=== PATIENT | male | born 1950 | race Asian ===

== ENCOUNTER → 2017-04-12 | Outpatient (CLI) | payer MEDICARE ==
--- NOTE | 2017-04-12 07:37 | CT ---
EXAMINATION TYPE: CT sinus wo con DATE OF EXAM: 04/12/2017 COMPARISON: NONE HISTORY: Chronic sinusitis CT DLP: 624.20 mGycm. Automated Exposure Control for Dose Reduction was Utilized. TECHNIQUE: CT scan of the sinuses is performed without contrast, axial images are obtained, coronal r eformatted images are also reviewed. FINDINGS: Intracranial structures show mild atrophy. Soft tissue including the orbits appear normal. There is mucoperiosteal thickening involving the maxillary sinuses as well as the ethmoid sinuses. Th ere is some mild mucoperiosteal thickening involving the sphenoid sinuses. There is also mucoperioste al thickening involving the frontal sinuses, worse on the right than the left. Both infundibula are o bstructed by soft tissue. No air-fluid levels are seen. IMPRESSION: CHRONIC PANSINUSITIS. BOTH INFUNDIBULA ARE OCCLUDED BY SOFT TISSUE.
[2017-04-12 07:39] LABS: CHCM 31.8; HCT 42.7 % (39.0-53.0); HDW 2.77; HGB 13.5 gm/dL (13.0-17.5); Hypochromasia Slight; MCHC 31.7 g/dL (31.0-37.0); MCV 88.4 fL (80.0-100.0); Mean Platelet Volume 6.5; RBC 4.83 m/uL (4.30-5.90); RDW 14.7 % (11.5-15.5); WBC 8.5 k/uL (3.8-10.6)
[2017-04-12 07:53] LABS: ALT 18 U/L (21-72); AST 18 U/L (17-59); Alkaline Phosphatase 82 U/L (38-126); Anion Gap 13 mmol/L; Blood Urea Nitrogen 15 mg/dL (9-20); Calcium 9.4 mg/dL (8.4-10.2); Carbon Dioxide 26 mmol/L (22-30); Chloride 105 mmol/L (98-107); Cholesterol 171 mg/dL (<200); Glucose 116 mg/dL (74-99); HDL Cholesterol 57 mg/dL (40-60); Non-African American GFR(MDRD) >60 (>60 ml/min/1.73 sqM); Potassium 4.5 mmol/L (3.5-5.1); Sodium 144 mmol/L (137-145); Total Bilirubin 0.5 mg/dL (0.2-1.3); Total Protein 8.3 g/dL (6.3-8.2); Triglycerides 234 mg/dL (<150)
[2017-04-12 08:37] LABS: Hemoglobin A1C 6.6 % (4.2-6.1)
== END | disposition home or self-care (01) ==
LOC: RADCTMAIN 06:56
PROVIDERS: ATTEND Otolaryngology
DX: J32.4 Chronic pansinusitis (principal)
CPT/HCPCS: 36415; 70486; 80053; 80061; 83036; 85027

== ENCOUNTER → 2018-04-05 | Outpatient (CLI) | payer MEDICARE ==
[2018-04-05 07:59] LABS: Anisocytosis Slight; HCT 44.4 % (39.0-53.0); HGB 14.1 gm/dL (13.0-17.5); Hypochromasia Slight; MCH 28.2 pg (25.0-35.0); MCHC 31.7 g/dL (31.0-37.0); Mean Platelet Volume 6.4; Platelet Count 289 k/uL (150-450); RBC 4.98 m/uL (4.30-5.90); RDW 16.5 % (11.5-15.5); WBC 8.5 k/uL (3.8-10.6)
[2018-04-05 08:31] LABS: ALT 22 U/L (21-72); AST 18 U/L (17-59); Albumin 3.9 g/dL (3.5-5.0); Alkaline Phosphatase 84 U/L (38-126); Anion Gap 11 mmol/L; Blood Urea Nitrogen 15 mg/dL (9-20); Calcium 9.2 mg/dL (8.4-10.2); Carbon Dioxide 28 mmol/L (22-30); Chloride 103 mmol/L (98-107); Cholesterol 219 mg/dL (<200); Glucose 98 mg/dL (74-99); HDL Cholesterol 40 mg/dL (40-60); LDL Cholesterol,Calculated 136 mg/dL (0-99); Sodium 142 mmol/L (137-145); Total Bilirubin 0.4 mg/dL (0.2-1.3); Total Protein 7.4 g/dL (6.3-8.2); Triglycerides 214 mg/dL (<150)
[2018-04-05 12:17] LABS: Hemoglobin A1C 6.6 % (4.0-6.0)
== END | disposition home or self-care (01) ==
LOC: LABWHC1 07:16
PROVIDERS: ATTEND Internal Medicine
DX: E11.9 Type 2 diabetes mellitus without complications (principal); E78.5 Hyperlipidemia, unspecified
CPT/HCPCS: 36415; 80053; 80061; 83036; 85027

== ENCOUNTER → 2019-07-27 | Outpatient (CLI) | payer MEDICARE ==
[2019-07-27 08:51] LABS: Appearance,Urine Clear (Clear); Bilirubin,Urine Negative (Negative); Blood,Urine Negative (Negative); Color,Urine Yellow; Glucose,Urine (UA) Negative (Negative); HCT 45.9 % (39.0-53.0); HGB 14.5 gm/dL (13.0-17.5); Hypochromasia Slight; Ketones,Urine Negative (Negative); Leukocyte Esterase,Urine Negative (Negative); MCH 28.4 pg (25.0-35.0); MCHC 31.6 g/dL (31.0-37.0); Mean Platelet Volume 5.7; Nitrite,Urine Negative (Negative); Platelet Count 350 k/uL (150-450); Protein,Urine Trace (Negative); RDW 15.6 % (11.5-15.5); Specific Gravity,Urine 1.025 (1.001-1.035); WBC 8.7 k/uL (3.8-10.6)
[2019-07-27 16:43] LABS: African American GFR (CKD) 100.6 (60.0-200.0); Albumin 4.1 g/dL (3.80-4.90); Albumin/Globulin Ratio 1.28 (1.60-3.17); Anion Gap 6.3 mmol/L (4.00-12.00); BUN/Creat Ratio 13.33 Ratio (12.00-20.00); Carbon Dioxide 28.7 mmol/L (21.6-31.8); Chol/HDL Ratio 3.77; Globulin 3.2 g/dL (1.6-3.3); LDL Cholesterol,Calculated 115.2 mg/dL (0.0-131.0); Potassium 3.9 mmol/L (3.5-5.5); Total Bilirubin 0.4 mg/dL (0.3-1.2); Total Protein 7.3 g/dL (6.2-8.2); VLDL Calculation 28.8 mg/dL (5.00-40.00)
[2019-07-27 18:53] LABS: Hemoglobin A1C 6.7 % (4.0-6.0)
== END | disposition home or self-care (01) ==
LOC: LABWHC1 08:19
PROVIDERS: ATTEND Internal Medicine
DX: E11.9 Type 2 diabetes mellitus without complications (principal); E78.5 Hyperlipidemia, unspecified; I25.709 Atherosclerosis of coronary artery bypass graft(s), unspecified, with unspecified angina pectoris; R53.83 Other fatigue
CPT/HCPCS: 36415; 80053; 80061; 81003; 82043; 82570; 83036; 84443; 85027

== ENCOUNTER 2021-09-18 00:23 | Observation (INO) | payer MEDICARE ==
[2021-09-18] MEDS ORDERED: IPRATROPIUM-ALBUTEROL 3 ML NEB INHALATION STA ×2 (00:34→01:37)
[2021-09-18] MEDS ORDERED: LORazepam 1 MG TAB PO STA (00:34)
--- NOTE | 2021-09-18 00:35 | ED ---
SOB HPI - General Stated Complaint: GOLD Time Seen by Provider: 09/18/21 00:24 Source: RN notes reviewed, old records reviewed Limitations: no limitations - History of Present Illness Initial Comments: This is a 70-year-old male to the ER today. Patient is a for evaluation of shortness breath with cough and congestion. Symptoms began suddenly tonight he does admit to smoking cigarettes tonight. Patient states he became very anxious his oxygen began to drop in his very short of breath and then became diaphoretic. Ration no chest pain. She has a strong medical history does have significant COPD. MD Complaint: shortness of breath, cough -: hour(s) Radiation: back Severity: mild Severity scale (1-10): 3 Quality: aching Consistency: constant Improves With: nothing Worsens With: nothing Known History Of: COPD Context: recent URI Associated Symptoms: chest pain, cough, sputum production Treatments Prior to Arrival: none - Related Data Home Medications Medication Instructions Recorded Confirmed Aspirin 81 mg PO DAILY 07/09/15 07/09/15 atenoloL [Tenormin] 25 mg PO DAILY 07/09/15 07/09/15 traZODone HCL [Desyrel] 200 mg PO HS 07/09/15 07/09/15 Previous Rx's Medication Instructions Recorded HYDROcodone/APAP 5-325MG [[place] 5] 1 each PO Q6HR PRN #10 tab 07/09/15 Sulfamethox-Tmp 800-160Mg [Bactrim 1 each PO Q12HR #14 tab 07/09/15 Ds] Allergies Allergy/AdvReac Type Severity Reaction Status Date / Time No Known Allergies Allergy Verified 07/09/15 07:53 Review of Systems ROS Statement: Those systems with pertinent positive or pertinent negative responses have been documented in the HPI. ROS Other: All systems not noted in ROS Statement are negative. Past Medical History Additional Past Medical History / Comment(s): hypotension, trachea stenosis History of Any Multi-Drug Resistant Organisms: None Reported Past Surgical History: Coronary Bypass/CABG Additional Past Surgical History / Comment(s): CABG x 2, trachea sx Past Psychological History: No Psychological Hx Reported Past Alcohol Use History: None Reported Past Drug Use History: None Reported General Exam General appearance: alert, in no apparent distress Head exam: Present: atraumatic, normocephalic, normal inspection Eye exam: Present: normal appearance, PERRL, EOMI. Absent: scleral icterus, conjunctival injection, periorbital swelling ENT exam: Present: normal exam, mucous membranes moist Neck exam: Present: normal inspection. Absent: tenderness, meningismus, lymphadenopathy Respiratory exam: Present: normal lung sounds bilaterally. Absent: respiratory distress, wheezes, rales, rhonchi, stridor Cardiovascular Exam: Present: regular rate, normal rhythm, normal heart sounds. Absent: systolic murmur, diastolic murmur, rubs, gallop, clicks GI/Abdominal exam: Present: soft, normal bowel sounds. Absent: distended, tenderness, guarding, rebound, rigid Extremities exam: Present: normal inspection, full ROM, normal capillary refill. Absent: tenderness, pedal edema, joint swelling, calf tenderness Back exam: Present: normal inspection Neurological exam: Present: alert, oriented X3, CN II-XII intact Psychiatric exam: Present: normal affect, normal mood Skin exam: Present: warm, dry, intact, normal color. Absent: rash Course Vital Signs 09/18/21 09/18/21 09/18/21 00:27 00:59 01:16 Temperature 97.4 F L Pulse Rate 107 H 96 92 Respiratory 20 Rate Blood Pressure O2 Sat by Pulse 94 L Oximetry 09/18/21 09/18/21 02:12 02:15 Temperature Pulse Rate 105 H 110 H Respiratory 20 Rate Blood Pressure 150/80 O2 Sat by Pulse 93 L Oximetry - Reevaluation(s) Reevaluation #1: 09/18/21 01:38 Medical record is reviewed Reevaluation #2: 09/18/21 03:47 Patient still having anxiety and pain. Breathing is improving Reevaluation #3: 09/18/21 03:47 Patient is informed of results and questions answered - Consultations Consultation #1: Spoke with H will admit for this patient Medical Decision Making - Medical Decision Making 70 male DF for evaluation patient will be admitted for cardiology evaluation breathing treatments and cardiopulmonary support - Lab Data Result diagrams: 09/18/21 01:50 09/18/21 01:50 Lab Results 09/18/21 09/18/21 09/18/21 Range/Units 01:50 01:50 01:50 WBC 10.7 H (3.8-10.6) k/uL RBC 5.18 (4.30-5.90) m/uL Hgb 15.1 (13.0-17.5) gm/dL Hct 48.1 (39.0-53.0) % MCV 92.8 (80.0-100.0) fL MCH 29.1 (25.0-35.0) pg MCHC 31.4 (31.0-37.0) g/dL RDW 15.1 (11.5-15.5) % Plt Count 280 (150-450) k/uL MPV 7.2 Neutrophils % 72 % Lymphocytes % 19 % Monocytes % 5 % Eosinophils % 3 % Basophils % 1 % Neutrophils # 7.7 (1.3-7.7) k/uL Lymphocytes # 2.0 (1.0-4.8) k/uL Monocytes # 0.5 (0-1.0) k/uL Eosinophils # 0.3 (0-0.7) k/uL Basophils # 0.1 (0-0.2) k/uL Sodium 136 L (137-145) mmol/L Potassium 4.6 (3.5-5.1) mmol/L Chloride 105 (98-107) mmol/L Carbon Dioxide 22 (22-30) mmol/L Anion Gap 9 mmol/L BUN 20 (9-20) mg/dL Creatinine 0.94 (0.66-1.25) mg/dL Est GFR (CKD-EPI)AfAm >90 (>60 ml/min/1.73 sqM) Est GFR (CKD-EPI)NonAf 82 (>60 ml/min/1.73 sqM) Glucose 133 H (74-99) mg/dL Calcium 9.2 (8.4-10.2) mg/dL Magnesium 2.2 (1.6-2.3) mg/dL Total Bilirubin 0.4 (0.2-1.3) mg/dL AST 23 (17-59) U/L ALT 12 (4-49) U/L Alkaline Phosphatase 92 (38-126) U/L Troponin I 0.154 H* (0.000-0.034) ng/mL NT-Pro-B Natriuret Pep pg/mL Total Protein 8.0 (6.3-8.2) g/dL Albumin 4.1 (3.5-5.0) g/dL Coronavirus (PCR) (Not Detectd) 09/18/21 09/18/21 Range/Units 01:50 02:16 WBC (3.8-10.6) k/uL RBC (4.30-5.90) m/uL Hgb (13.0-17.5) gm/dL Hct (39.0-53.0) % MCV (80.0-100.0) fL MCH (25.0-35.0) pg MCHC (31.0-37.0) g/dL RDW (11.5-15.5) % Plt Count (150-450) k/uL MPV Neutrophils % % Lymphocytes % % Monocytes % % Eosinophils % % Basophils % % Neutrophils # (1.3-7.7) k/uL Lymphocytes # (1.0-4.8) k/uL Monocytes # (0-1.0) k/uL Eosinophils # (0-0.7) k/uL Basophils # (0-0.2) k/uL Sodium (137-145) mmol/L Potassium (3.5-5.1) mmol/L Chloride (98-107) mmol/L Carbon Dioxide (22-30) mmol/L Anion Gap mmol/L BUN (9-20) mg/dL Creatinine (0.66-1.25) mg/dL Est GFR (CKD-EPI)AfAm (>60 ml/min/1.73 sqM) Est GFR (CKD-EPI)NonAf (>60 ml/min/1.73 sqM) Glucose (74-99) mg/dL Calcium (8.4-10.2) mg/dL Magnesium (1.6-2.3) mg/dL Total Bilirubin (0.2-1.3) mg/dL AST (17-59) U/L ALT (4-49) U/L Alkaline Phosphatase (38-126) U/L Troponin I (0.000-0.034) ng/mL NT-Pro-B Natriuret Pep 786 pg/mL Total Protein (6.3-8.2) g/dL Albumin (3.5-5.0) g/dL Coronavirus (PCR) Not Detected (Not Detectd) - Radiology Data Radiology results: report reviewed (Chest x-rays negative for acute disease), image reviewed Critical Care Time Critical Care Time: Yes Total Critical Care Time: 31 Disposition Clinical Impression: Acute exacerbation of chronic obstructive pulmonary disease, Hypoxia Disposition: ADMITTED IP TO THIS HOSP Condition: Serious Is patient prescribed a controlled substance at d/c from ED?: No Referrals: Estephanie Sosa MD [Primary Care Provider] - 1-2 days
--- NOTE | 2021-09-18 01:14 | XR ---
EXAMINATION TYPE: XR chest 1V portable DATE OF EXAM: 09/18/2021 COMPARISON: 09/09/2015 HISTORY: Short of breath TECHNIQUE: Single view FINDINGS: There is some coarse interstitial infiltrate throughout both lungs. There is blunting of th e costophrenic angles and more on the right side. There is some pleural thickening on the right later al chest wall. There are sternal wires. Bony thorax appears intact. IMPRESSION: Pulmonary fibrosis. Pleural diaphragmatic scarring. There is mild progression of disease compared to old exam. Congestive heart failure not excluded.
[2021-09-18] MEDS ORDERED: SODIUM CHLORIDE 0.9% 1,000 ML IV STA (01:37)
[2021-09-18] MEDS ORDERED: SODIUM CHLORIDE 0.9% 500 ML 500 ML IV STA (01:37)
[2021-09-18] MEDS ORDERED: methylPREDNISolone SOD SUCCI 125 MG/2 ML VIAL IV STA (01:37)
[2021-09-18 02:26] LABS: Basophils # (A) 0.1 k/uL (0-0.2); Basophils % (A) 1 %; Eosinophils # (A) 0.3 k/uL (0-0.7); Eosinophils % (A) 3 %; HCT 48.1 % (39.0-53.0); HGB 15.1 gm/dL (13.0-17.5); Lymphocytes % (A) 19 %; MCH 29.1 pg (25.0-35.0); MCHC 31.4 g/dL (31.0-37.0); MCV 92.8 fL (80.0-100.0); Mean Platelet Volume 7.2; Monocytes # (A) 0.5 k/uL (0-1.0); Monocytes % (A) 5 %; Neutrophils # (A) 7.7 k/uL (1.3-7.7); Neutrophils % (A) 72 %; Platelet Count 280 k/uL (150-450); RBC 5.18 m/uL (4.30-5.90); RDW 15.1 % (11.5-15.5); WBC 10.7 k/uL (3.8-10.6)
[2021-09-18 02:40] LABS: ALT 12 U/L (4-49); AST 23 U/L (17-59); African American GFR (CKD) >90 (>60 ml/min/1.73 sqM); Albumin 4.1 g/dL (3.5-5.0); Alkaline Phosphatase 92 U/L (38-126); Anion Gap 9 mmol/L; Blood Urea Nitrogen 20 mg/dL (9-20); Calcium 9.2 mg/dL (8.4-10.2); Carbon Dioxide 22 mmol/L (22-30); Chloride 105 mmol/L (98-107); Glucose 133 mg/dL (74-99); Magnesium 2.2 mg/dL (1.6-2.3); Non-African American GFR(CKD) 82 (>60 ml/min/1.73 sqM); Potassium 4.6 mmol/L (3.5-5.1); Sodium 136 mmol/L (137-145); Total Bilirubin 0.4 mg/dL (0.2-1.3)
[2021-09-18] MEDS ORDERED: HYDROmorphone 1 MG/ML 1 ML SYRINGE IVP STA (02:59)
[2021-09-18] MEDS ORDERED: ONDANSETRON 4 MG/2 ML VIAL IVP PRN (03:48)
[2021-09-18] MEDS ORDERED: HEPARIN SODIUM 1,000 UN/ML (10ML VL) IV ONE ×2 (03:48→17:15)
[2021-09-18] MEDS ORDERED: NALOXONE 0.4 MG/ML 1 ML VIAL IV PRN (03:48)
[2021-09-18] MEDS ORDERED: LORazepam 2 MG/ML INJ IV PRN (03:48)
[2021-09-18] MEDS ORDERED: HEPARIN SOD,PORK IN 0.45% NACL 25,000 UNIT in 0.45% NACL 1 250ML.BAG IV SCH (04:00)
[2021-09-18] MEDS: HYDROcodone/APAP 10-325MG 1 EACH TAB PO PRN ×3 (05:11→18:44)
[2021-09-18] MEDS: HYDROmorphone 1 MG/ML 1 ML SYRINGE IVP PRN ×4 (06:36→21:03)
[2021-09-18] MEDS: methylPREDNISolone SOD SUCCI 125 MG/2 ML VIAL IV SCH ×3 (06:37→18:44)
[2021-09-18 06:39] LABS: Glucose,Whole Blood 166 mg/dL (75-99)
[2021-09-18] MEDS ORDERED: CLOTRIMAZOLE 1% CREAM 30 GM TUBE TOPICAL PRN (07:54)
[2021-09-18] MEDS ORDERED: HYDROcodone/APAP 5-325MG 1 EACH TAB PO STA (07:59)
[2021-09-18] MEDS ORDERED: FUROSEMIDE 10 MG/ML 2 ML VIAL IV ONE ×2 (08:20→18:13)
[2021-09-18] MEDS: ALBUTEROL NEBULIZED 2.5 MG/3 ML INHALATION SCH ×2 (08:53→13:01)
[2021-09-18] MEDS ORDERED: ASPIRIN 81 MG PO SCH (09:00)
[2021-09-18] MEDS ORDERED: ISOSORBIDE MONONITRATE ER 30 MG TAB.ER.24H PO SCH (09:00)
[2021-09-18] MEDS ORDERED: atenoloL 25 MG TAB PO SCH (09:00)
[2021-09-18] MEDS ORDERED: TAMSULOSIN 0.4 MG CAP.ER.24H PO SCH (09:00)
[2021-09-18] MEDS ORDERED: PANTOPRAZOLE 40 MG TABLET PO SCH (09:00)
--- NOTE | 2021-09-18 10:08 | CONS ---
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 This gentleman has a significant past medical history that includes myocardial infarction followed by aortocoronary bypass surgery in 1991 and redo bypass surgery in 2006. Following the redo bypass surgery, he developed vocal cord paralysis. Since then, he has had episodes of hospitalization with chest discomfort but has done generally well. He smokes on a regular basis and has underlying COPD and probably some pulmonary fibrosis and pulmonary hypertension as well. He usually uses oxygen at night. He has chronic pain issues and also takes pain medication. He was doing fairly well until yesterday when he began having some shortness of breath and noted that his oxygen saturation, which usually runs at 91, came down to 88. He felt a bit concerned and he took some inhalers, did not have much relief and following this, he felt a bit anxious and then had chest tightness and pressure and came into the emergency room. In the emergency room, he was found to have on the EKG, a sinus mechanism with LVH and evidence of possible old inferior PR. There are also ST-T abnormality, lateral leads, but this could be related to LVH also. Troponin was up as well and this could be related to a primary myocardial infarction or could also be related to hypoxia since his oxygen saturation was in the 80s when he came in. Now the oxygen saturation on 2 L is 94%. Heart rate is about 100. He is resting comfortably without symptoms. PAST MEDICAL HISTORY: 1. CAD with PR and bypass surgery in 1991. 2. Myocardial infarction and stenting of circumflex in 2004, probably date unclear. 3. Status post redo bypass surgery at [facility] in 2006. 4. COPD, smoking and pulmonary fibrosis. 5. History of pulmonary hypertension. 6. Known peripheral vascular disease with occlusion of left subclavian following his initial bypass surgery. MEDICATIONS: Medications at home include atenolol 25 mg daily, Flomax 0.4 mg daily, trazodone 300 mg daily, Imdur 30 mg daily. He also takes Batson 10/325 1 tablet 3-4 times a day, aspirin 81 mg daily. PHYSICAL EXAMINATION: On examination, blood pressure is 110/78, pulse rate is about 98. HEENT unremarkable. Fundus was not examined by me. NECK: Supple. There is JVD of 1 cm. No carotid bruit. HEART exam reveals S1, S2. There is a short systolic murmur at left sternal border. LUNGS: Fine scattered rales on both sides with expiratory rhonchi. ABDOMEN is soft, nontender. Lower EXTREMITIES reveal diminished pulses. CENTRAL NERVOUS SYSTEM grossly no focal deficits. IMPRESSION: 1. Acute exacerbation of chronic obstructive pulmonary disease with background history of pulmonary fibrosis in a chronic smoker. 2. Non-ST elevation myocardial infarction could be a type 2 myocardial infarction given his chronic hypoxemia that went on for the last day or so. 3. History of coronary artery disease with prior bypass surgery in 1991 and 2006 with known significant progression of disease. 4. Peripheral vascular disease. 5. History of pain syndrome. RECOMMENDATIONS: I am recommending that we will heparinize him. Additional troponins will be obtained. We will obtain echocardiogram, seek pulmonary evaluation. Resume most of his medications and based on clinical course, we will make further recommendations. Prognosis remains guarded. I will not proceed with cardiac cath at this time but we will see how he does clinically. I discussed this at length with the patient. His BNP was also within normal limits. Prognosis remains guarded. He has been counseled to quit smoking multiple times. MMODL / IJN: [id number] /
[2021-09-18] MEDS ORDERED: DOXYCYCLINE 100 MG in SODIUM CHLORIDE 0.9% 100 ML IVPB SCH (11:15)
[2021-09-18 11:16] LABS: Glucose,Whole Blood 190 mg/dL (75-99)
--- NOTE | 2021-09-18 12:13 | ECHOF ---
Referral Reason:CAD, CHF, NSTEMI LV FX ?? MEASUREMENTS -------- HEIGHT: 165.1 cm WEIGHT: 59.9 kg BP: 147/87 RVIDd: 3.0 cm (< 3.3) IVSd: 1.1 cm (0.6 - 1.1) LVIDd: 4.8 cm (3.9 - 5.3) LVPWd: 1.1 cm (0.6 - 1.1) IVSs: 1.2 cm LVIDs: 4.0 cm LVPWs: 1.6 cm LA Diam: 3.7 cm (2.7 - 3.8) LAESV Index (A-L): 24.16 ml/m Ao Diam: 3.2 cm (2.0 - 3.7) AV Cusp: 1.7 cm (1.5 - 2.6) MV EXCURSION: 22.126 mm (> 18.000) MV EF SLOPE: 132 mm/s (70 - 150) EPSS: 1.1 cm AR PHT: 700 ms RAP: 15.00 mmHg RVSP: 43.03 mmHg FINDINGS -------- Sinus rhythm. This was a technically adequate study. The left ventricular size is normal. There is borderline concentric left ventricular hypertrophy. Overall left ventricular systolic function is mild-moderately impaired with, an EF of 40 %. Basal i nferior LV wall motion is hypokinetic. Inferiorlateral Hypokinesis The right ventricle is normal in size. Paradoxical motion of the right ventricular septum is consis tent with post operative status. Normal LA size by volume 22+/-6 ml/m2. The right atrium is normal in size. Interatrial and interventricular septum intact. There is mild aortic valve sclerosis. There is mild aortic regurgitation. Mild mitral annular calcification present. Mild mitral regurgitation is present. Mild tricuspid regurgitation present. There is mild pulmonary hypertension. The right ventricular systolic pressure, as measured by Doppler, is 43.03mmHg. The pulmonic valve was not well visualized. The aortic root size is normal. Normal inferior vena cava with normal inspiratory collapse consistent with estimated right atrial pre ssure of 5 mmHg. There is no pericardial effusion. CONCLUSIONS -------- 1. The left ventricular size is normal. 2. There is borderline concentric left ventricular hypertrophy. 3. Overall left ventricular systolic function is mild-moderately impaired with, an EF of 40% 4. Basal inferior LV wall motion is hypokinetic. 5. Inferiorlateral Hypokinesis 6. Paradoxical motion of the right ventricular septum is consistent with post operative status. 7. There is mild aortic valve sclerosis. 8. There is mild aortic regurgitation. 9. Mild mitral annular calcification present. 10. Mild mitral regurgitation is present. 11. Mild tricuspid regurgitation present. 12. There is mild pulmonary hypertension. 13. The right ventricular systolic pressure, as measured by Doppler, is 43.03mmHg. 14. There is no pericardial effusion. CURRENCY EXCHANGE SPECIALIST: Louise Wooten RDCS
[2021-09-18] MEDS: METOPROLOL TARTRATE 50 MG TAB PO SCH ×3 (12:21→21:03)
[2021-09-18] MEDS ORDERED: IPRATROPIUM-ALBUTEROL 3 ML NEB INHALATION PRN (12:22)
[2021-09-18] MEDS: IPRATROPIUM-ALBUTEROL 3 ML NEB INHALATION SCH ×3 (12:26→19:50)
[2021-09-18] MEDS ORDERED: ALPRAZolam 0.5 MG TAB PO PRN (12:31)
[2021-09-18] MEDS ORDERED: ALPRAZolam 0.25 MG TAB PO PRN (12:31)
[2021-09-18] MEDS ORDERED: NITROGLYCERIN SL TABS 0.4 MG TAB SUBLINGUAL PRN (12:31)
[2021-09-18] MEDS ORDERED: ASPIRIN 325 MG TAB PO STA (12:31)
[2021-09-18] MEDS ORDERED: SODIUM CHLORIDE 0.9% 1,000 ML in EMPTY BAG 1 BAG IV SCH (12:45)
[2021-09-18] MEDS ORDERED: SODIUM CHLORIDE 0.9% 1,000 ML IV SCH ×2 (12:45→18:15)
[2021-09-18 13:49] VITALS: BMI 21.9
[2021-09-18] MEDS: DOXYCYCLINE 100 MG CAP PO SCH ×2 (14:11→21:03)
[2021-09-18] MEDS ORDERED: IV FLUID CONTINUATION 700 ML IV ONE (16:40)
[2021-09-18] MEDS ORDERED: LIDOCAINE 1% INJ 10MG/ML (20 ML MDV) ONE (16:43)
[2021-09-18] MEDS ORDERED: MIDAZOLAM 2 MG/2 ML VIAL IV ONE (16:45)
[2021-09-18] MEDS ORDERED: .fentaNYL (PF) 50 MCG/ML AMP IV ONE (16:49)
[2021-09-18] MEDS ORDERED: LIDOCAINE 1% INJ 10MG/ML (20 ML MDV) SQ ONE (16:50)
[2021-09-18] MEDS ORDERED: IOPAMIDOL-370 100ML BTL INJ ONE ×2 (17:06→17:44)
[2021-09-18] MEDS ORDERED: HEPARIN SODIUM 1,000 UN/ML (10ML VL) ONE (17:11)
[2021-09-18] MEDS ORDERED: HYDROmorphone 0.5 MG/0.5 ML SYRINGE IVP ONE ×2 (17:26→17:52)
[2021-09-18] MEDS ORDERED: NITROGLYCERIN 1000MCG/10ML SYRINGE INTRACORON ONE (17:36)
[2021-09-18] MEDS ORDERED: RX INFO: IV CONTRAST WAS GIVEN 1 EACH MISC MISCELLANE PRN (18:17)
[2021-09-18 18:58] VITALS: TEMP 98
--- NOTE | 2021-09-18 19:28 | CC ---
CARDIAC CATHETERIZATION REPORT DATE OF SERVICE: 09/18/2021 PROCEDURE: 1. Left heart catheterization, coronary angiography and selective injection of bypass grafts and selective injection of left subclavian. 2. Percutaneous transluminal coronary angioplasty of left main coronary artery into the circumflex. This procedure was unsuccessful; could not wire successfully. Moderate conscious sedation time was 66 minutes. Patient was administered Versed, fentanyl and also Dilaudid for pain. Oxygen saturation, hemodynamics and EKG were monitored closely. CLINICAL INFORMATION: Ilia Burton is a 70-year-old gentleman with a history of CAD, previous bypass surgery x2 in 1991 and 2006, and multivessel stenting involving stenting of vein graft to the circumflex, vein graft to the diagonal, and also left subclavian stenting. He has been doing fairly well. Unfortunately he continues to smoke. He also has significant COPD, some pulmonary fibrosis and moderate pulmonary hypertension. He came into the hospital with increasing shortness of breath and had troponin elevation suggestive of [id number] IN. After due discussion regarding risks, benefits and options, I recommended coronary angiography to assess the coronary picture and then consider intervention. Rationale, risks, benefits and options were explained to the patient and also his . They understood all details and wished to proceed with the procedure. In 2006 he underwent repeat bypass surgery. The initial one was in 1991, and both the vein grafts to the diagonal, circumflex were occluded, and because of a left subclavian stenosis, the SELBY was nonfunctional and he had subclavian stenting placed also. In 2006 he went to [facility] for a redo operation. At that time they placed a single vein graft from the aorta to the PLV branch of circumflex and a second was a free right internal mammary artery graft which was placed to the grier of the old vein graft, and the distal end was to the LAD. These were the only two grafts. Postoperatively, he had a lot of issues and developed vocal cord palsy and has some hoarseness of voice and difficulty in speech. He was brought in for the procedure after due discussion regarding risks, benefits and options. PROCEDURE NOTE: Under local anesthesia and strict aseptic precautions, a 6-Kinyarwanda introducer was placed in the right femoral artery. Using a JL4 catheter, I performed selective coronary angiography of the left system. I used an AR1 catheter. With this I performed selective coronary angiography of the vein graft/right internal mammary free graft to the LAD, which opacifies the entire LAD and diagonal. I used the same catheter to perform selective angiography of the left subclavian. I used a standard right Milton catheter to selectively perform coronary angiography of the [place] RCA. I then did an aortogram with a pigtail catheter in the ANTON projection to look for any additional grafts. The vein graft to the PLV branch was not visualized and presumably occluded. Following this, I attempted PTCA of the left main which was supplying the circumflex, but I could not cross the lesion in the left main into the circumflex. I kept going into the LAD and one occasion I went into the circumflex with extreme tortuosity, but because of a lot of assistance, the wire came back. After some attempts, I explained to the patient that I would send him to [facility] for a [facility] intervention team and abandoned the procedure and took the sheath out and placed Angio-Seal. Patient received 3500 units of heparin. ACT was about 240. CARDIAC CATHETERIZATION FINDINGS: LEFT MAIN CORONARY ARTERY: There is severe stenosis of the left main distally of about 95% and then it gives off LAD, ramus and circumflex. Left main distally has a 90% chronic stenosis, heavily calcified area, chronic occlusion. LEFT ANTERIOR DESCENDING CORONARY ARTERY: No antegrade flow. There is some competitive flow noted. RAMUS INTERMEDIUS: Small vessel. No significant disease. Minor irregularities. LEFT POSTERIOR CIRCUMFLEX CORONARY ARTERY: Nondominant vessel has a mid lesion of about 70% and it also has an obtuse marginal where the graft was attached, and that appears to have about 30% to 40% narrowing. RIGHT CORONARY ARTERY: This is a nondominant vessel, has a proximal 50% lesion, small caliber, small distribution, limited myocardium being supplied by it. FREE RIGHT INTERNAL MAMMARY ARTERY GRAFT FROM THE GRIER OF THE VEIN GRAFT TO THE LAD: This was opacified very well. It is a good-sized, healthy-looking graft that attaches to the LAD and opacifies the entire LAD both proximal and distal and also the diagonal branch and entire septal system. This is an excellent graft that is literally opacifying the entire LAD system, including the diagonal branch. No other vein graft visualized. One vein graft stump was noted. Presumably this is the stump that supplies the posterolateral branch of circumflex which is now occluded. LEFT SUBCLAVIAN SELECTIVE INJECTION: This subclavian injection was performed with Amplatz right catheter. The vessel is widely patent. No significant stenosis. Opacifies the entire subclavian artery. AORTOGRAM: This was performed in a 30-degree ANTON projection and revealed a normal-sized aorta and there is evidence of the free ANISH graft opacifying the LAD system, but no other grafts are visualized. Aortic root is enlarged. There is minimal aortic insufficiency noted. FINAL IMPRESSION: This patient has distal left main 95% stenosis, competitive flow in LAD noted. Ramus has mild diffuse disease. Circumflex has a mid lesion of 70%. RCA is nondominant, has a 50% proximal lesion. The free right internal mammary artery graft from the grier of the old vein graft to the LAD is widely patent, opacifies the entire LAD and the diagonal. The vein graft to the PLV branch of circumflex is not visualized, presumably occluded, seen as a stump. RECOMMENDATIONS: I recommended intervention of the left main that supplies the circumflex and explained to him that it would be a difficult procedure because the lesion appears to be a chronic one, and there is tortuosity of the circumflex and it would be difficult to wire. Dr. Burton was explained the findings and then I proceeded to perform PCI. PCI PROCEDURE DETAILS: A JL3.5 guide catheter was used and I used a combination of a Whisper straight wire and a 45-degree Super Cross. With this combination I was able to once cross into the circumflex, but the wire just came back because of high resistance and tortuosity. The wire kept going into the LAD itself, not the circumflex. After some attempts, I abandoned, explained to the patient that I will send him to a [facility] center where they will have a better success rate. Patient was stable, asymptomatic. Another troponin level was also ordered and he was sent to the room in a stable condition. Findings were discussed with the patient, and I will talk to his also. MMODL / IJN: [id number] /
[2021-09-18 19:31] VITALS: BP 128/74; PULSE 97
[2021-09-18 19:41] VITALS: RESP 17
[2021-09-18] MEDS ORDERED: BUDESONIDE 1 MG/2 ML NEBU INHALATION SCH (20:00)
[2021-09-18] MEDS ORDERED: FORMOTEROL FUMARATE 20 MCG/2 ML NEBU INHALATION SCH (20:00)
[2021-09-18 20:41] LABS: Glucose,Whole Blood 255 mg/dL (75-99)
[2021-09-18] MEDS ORDERED: traZODone HCL 100 MG TAB PO SCH (21:00)
[2021-09-18] MEDS ORDERED: ENOXAPARIN 60 MG/0.6 ML SYRINGE SQ SCH (21:00)
[2021-09-19] MEDS ORDERED: HEPARIN SODIUM,PORCINE 10,000 UNIT in SODIUM CHLORIDE 0.9% 1,000 ML IRRIGATION PRN (07:00)
[2021-09-19] MEDS ORDERED: HEPARIN SODIUM,PORCINE 2,500 UNIT in SODIUM CHLORIDE 0.9% 250 ML IRRIGATION PRN (07:00)
--- NOTE | 2021-09-19 08:49 | P.HPIM ---
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, with history of coronary artery disease/TN with CABG in 1991 and redo bypass surgery in 2006 at [facility]; following redo bypass surgery patient developed vocal cord paralysis; patient has long-standing history of tobacco use with underlying COPD/probable pulmonary fibrosis; presents to ED with complaint of shortness of breath; patient reports that he noted his O2 saturation was in 80s; patient reports using some inhalers at home which did help somewhat with breathing but he later developed chest tightness and pressure and decided to come to ED Workup in ED with EKG done reveals NSR with LVH and old inferior TN Blood work reveals WBC 10.7, hemoglobin 15.1, platelets of 280, sodium 136, potassium 4.6, BUN/creatinine of 20/0.94; troponin was found to be at 2.270 with follow-up troponin of 3.270 Patient received IV Solu-Medrol and started on IV heparin and is admitted for further treatment and cardiac evaluation Review of Systems REVIEW OF SYSTEMS: CONSTITUTIONAL: No fever, no malaise, no fatigue. HEENT: No recent visual problems or hearing problems. Denied any sore throat. CARDIOVASCULAR: chest pain PULMONARY: shortness of breath GASTROINTESTINAL: No diarrhea, no nausea, no vomiting, no abdominal pain. NEUROLOGICAL: No headaches, no weakness, no numbness. HEMATOLOGICAL: Denies any bleeding or petechiae. GENITOURINARY: Denies any burning micturition, frequency, or urgency. MUSCULOSKELETAL/RHEUMATOLOGICAL: Denies any joint pain, swelling, or any muscle pain. ENDOCRINE: Denies any polyuria or polydipsia. The rest of the 14-point review of systems is negative. Past Medical History Past Medical History: Coronary Artery Disease (CAD), Chest Pain / Angina, COPD, Myocardial Infarction ([place]) Additional Past Medical History / Comment(s): hypotension, trachea stenosis Last Myocardial Infarction Date:: 2005 History of Any Multi-Drug Resistant Organisms: None Reported Past Surgical History: Coronary Bypass/CABG, Heart Catheterization With Stent Additional Past Surgical History / Comment(s): CABG x 2, trachea sx 4 cardiac stent, penile implant Date of Last Stent Placement:: 2005 Past Psychological History: No Psychological Hx Reported Smoking Status: Current every day smoker Past Alcohol Use History: None Reported Past Drug Use History: None Reported - Past Family History Father Family Medical History: Coronary Artery Disease (CAD) Brother(s) Family Medical History: Coronary Artery Disease (CAD) Medications and Allergies Home Medications Medication Instructions Recorded Confirmed Type Aspirin 81 mg PO DAILY 07/09/15 09/18/21 History atenoloL [Tenormin] 25 mg PO DAILY 07/09/15 09/18/21 History HYDROcodone/APAP 10-325MG [[place] 1 tab PO QID 09/18/21 09/18/21 History 10-325] Isosorbide Mononitrate ER [Imdur] 30 mg PO DAILY 09/18/21 09/18/21 History Ketoconazole 2% Cream [Nizoral 2%] 1 applic TOPICAL BID PRN 09/18/21 09/18/21 History Pantoprazole Sodium [Protonix] 20 mg PO DAILY 09/18/21 09/18/21 History Tamsulosin [Flomax] 0.4 mg PO DAILY 09/18/21 09/18/21 History traZODone HCL 300 mg PO HS 09/18/21 09/18/21 History Allergies Allergy/AdvReac Type Severity Reaction Status Date / Time No Known Allergies Allergy Verified 09/18/21 07:32 Physical Exam Vitals: Vital Signs Temp Pulse Pulse Resp BP BP Pulse Ox 09/18/21 08:00 98.3 F 105 H 24 147/87 95 09/18/21 06:24 97.6 F 105 H 25 H 140/85 95 09/18/21 05:00 115 H 20 146/80 94 L 09/18/21 02:30 107 H 09/18/21 02:15 110 H 09/18/21 02:12 105 H 20 150/80 93 L 09/18/21 01:16 92 09/18/21 00:59 96 09/18/21 00:27 97.4 F L 107 H 20 94 L Intake and Output 09/17/21 09/18/21 09/18/21 22:59 06:59 14:59 Intake Total 240 Output Total 150 Balance -150 240 Intake: Oral 240 Output: Urine 150 Other: Weight 59.874 kg PHYSICAL EXAMINATION: GENERAL: The patient is alert and oriented x3, in mild respiratory distress. Well developed, well nourished. HEENT: Pupils are round and equally reacting to light. EOMI. No scleral icterus. No conjunctival pallor. Normocephalic, atraumatic. No pharyngeal erythema. No thyromegaly. CARDIOVASCULAR: S1 and S2 present. No murmurs, rubs, or gallops. PULMONARY: Diffuse bilateral wheezing with markedly decreased breath sounds. ABDOMEN: Soft, nontender, nondistended, normoactive bowel sounds. No palpable organomegaly. MUSCULOSKELETAL: No joint swelling or deformity. EXTREMITIES: No cyanosis, clubbing, or pedal edema. NEUROLOGICAL: Gross neurological examination did not reveal any focal deficits. SKIN: No rashes. Results CBC & Chem 7: 09/18/21 01:50 09/18/21 01:50 Labs: Abnormal Lab Results - Last 24 Hours (Table) 09/18/21 09/18/21 09/18/21 Range/Units 01:50 01:50 01:50 WBC 10.7 H (3.8-10.6) k/uL Sodium 136 L (137-145) mmol/L Glucose 133 H (74-99) mg/dL POC Glucose (mg/dL) (75-99) mg/dL Troponin I 0.154 H* (0.000-0.034) ng/mL 09/18/21 09/18/21 Range/Units 06:27 07:10 WBC (3.8-10.6) k/uL Sodium (137-145) mmol/L Glucose (74-99) mg/dL POC Glucose (mg/dL) 166 H (75-99) mg/dL Troponin I 1.600 H* (0.000-0.034) ng/mL Thrombosis Risk Factor Assmnt - Choose All That Apply Any of the Below Risk Factors Present?: Yes Each Factor Represents 1 point: Abnormal pulmonary function (COPD) Each Risk Factor Represents 2 Points: Age 61-74 years Thrombosis Risk Factor Assessment Total Risk Factor Score: 3 Thrombosis Risk Factor Assessment Level: Moderate Risk Assessment and Plan Assessment: 1. Non-ST elevation TN - Patient is placed on aspirin and IV heparin infusion; we will monitor EKG and trend troponin every 4 hours 3 - 2-D echo; consult cardiology for further recommendations 2. Acute exacerbation COPD/ pulmonary fibrosis -Patient received Solu-Medrol 125 mg IV in ED; questioning COPD exacerbation versus worsening pulmonary fibrosis - Pulmonary consult in place and recommendations are pending - I will add IV doxycycline for medical prophylaxis 3. Acute exacerbation CHF; mild; chest x-ray reveals mild CHF; BNP is 786 which is within normal range; patient does have mild respiratory distress; he received 1 dose of Lasix 20 mg IV in ED; we will monitor closely and obtain 2-D echo for further recommendations on diuretic therapy 4. Leukocytosis possibly reactive; monitor CBC closely; we will plan sepsis workup if WBC remains elevated 5. Hyperglycemia; no history of diabetes mellitus; possibly secondary to steroid use - We will monitor Accu-Cheks closely with further recommendations according DVT prophylaxis; SCDs/ IV heparin CODE STATUS; full code
[2021-09-19] MEDS ORDERED: ATORVASTATIN 40 MG TAB PO SCH (09:00)
== END 2021-09-18 22:10 | disposition critical access hospital (66) ==
LOC: EC 00:23 → 3SCARD 03:48
PROVIDERS: ADMIT Hospitalist; ATTEND Hospitalist
DX: I21.4 Non-ST elevation (NSTEMI) myocardial infarction (principal); J44.1 Chronic obstructive pulmonary disease with (acute) exacerbation; J84.10 Pulmonary fibrosis, unspecified; I11.0 Hypertensive heart disease with heart failure; I50.9 Heart failure, unspecified; I25.10 Atherosclerotic heart disease of native coronary artery without angina pectoris; R73.9 Hyperglycemia, unspecified; I08.3 Combined rheumatic disorders of mitral, aortic and tricuspid valves; I27.20 Pulmonary hypertension, unspecified; I73.9 Peripheral vascular disease, unspecified; J39.8 Other specified diseases of upper respiratory tract; F17.210 Nicotine dependence, cigarettes, uncomplicated; F41.9 Anxiety disorder, unspecified; J38.00 Paralysis of vocal cords and larynx, unspecified; G89.4 Chronic pain syndrome; D72.829 Elevated white blood cell count, unspecified; I25.2 Old myocardial infarction; Z71.6 Tobacco abuse counseling; Z20.822 Contact with and (suspected) exposure to COVID-19; Z79.82 Long term (current) use of aspirin; Z79.899 Other long term (current) drug therapy; Z95.1 Presence of aortocoronary bypass graft; Z96.0 Presence of urogenital implants; Z87.09 Personal history of other diseases of the respiratory system; Z95.5 Presence of coronary angioplasty implant and graft; Z82.49 Family history of ischemic heart disease and other diseases of the circulatory system
CPT/HCPCS: 96376; 96375 ×2; 96374; 99291; 36415; 94640 ×2; 94760; 93005; 93306; 93459; 93567; 92920; 83880; 80053; 83735; 84484; 85025; 85730; 87635; 71045; G0378; C1769 ×5; C1760; C1887 ×2; C1894; J2250; J1940; J2930; J2001; J1650; J3010; J1644 ×2; J1170 ×2; Q9967

== ENCOUNTER 2021-12-06 15:50 | Inpatient (IN) | payer MEDICARE ==
[2021-12-06] MEDS ORDERED: ASPIRIN 81 MG PO STA (16:27)
[2021-12-06] MEDS ORDERED: MORPHINE SULFATE 4 MG/ML SYRINGE IV STA (16:27)
[2021-12-06] MEDS ORDERED: NITROGLYCERIN SL TABS 0.4 MG TAB SUBLINGUAL STA (16:27)
[2021-12-06 16:49] LABS: Basophils # (A) 0.1 k/uL (0-0.2); Basophils % (A) 1 %; Eosinophils # (A) 0.9 k/uL (0-0.7); Eosinophils % (A) 8 %; HCT 42.9 % (39.0-53.0); HGB 13.9 gm/dL (13.0-17.5); Hypochromasia Slight; Lymphocytes # (A) 2.5 k/uL (1.0-4.8); Lymphocytes % (A) 22 %; MCH 30.3 pg (25.0-35.0); MCHC 32.4 g/dL (31.0-37.0); MCV 93.7 fL (80.0-100.0); Mean Platelet Volume 7.4; Monocytes # (A) 0.4 k/uL (0-1.0); Monocytes % (A) 4 %; Neutrophils # (A) 7.5 k/uL (1.3-7.7); Neutrophils % (A) 64 %; Platelet Count 308 k/uL (150-450); RBC 4.58 m/uL (4.30-5.90); RDW 15.3 % (11.5-15.5); WBC 11.6 k/uL (3.8-10.6)
[2021-12-06 16:51] LABS: INR 0.9 (<1.2); Partial Thromboplastin Time 22.8 sec (22.0-30.0); Prothrombin Time 10.1 sec (9.0-12.0)
[2021-12-06 16:52] LABS: Albumin 4.4 g/dL (3.5-5.0)
[2021-12-06 16:53] LABS: Calcium 9.3 mg/dL (8.4-10.2); Magnesium 2.2 mg/dL (1.6-2.3); Potassium 4.8 mmol/L (3.5-5.1); Total Bilirubin 0.5 mg/dL (0.2-1.3); Total Protein 8.3 g/dL (6.3-8.2)
--- NOTE | 2021-12-06 17:35 | ED ---
General Adult HPI - General Chief complaint: Chest Pain Stated complaint: chest pain Source: patient, EMS Mode of arrival: EMS Limitations: no limitations - History of Present Illness Initial comments: 71-year-old male with past medical history of CABG 2, multiple stent placement, tobacco abuse who presents to the emergency department with reported chest pain. Started 2 hours prior to hospital arrival. He does have history of significant cardiac disease. Patient has had 2 CABGs in the past. He was seen in August for similar complaints. Cath was performed at our facility and demonstrated significant chronic occlusion of his LAD. He was transferred down to [facility] where he had 2 stents placed. He reported that he had an additional circumflex lesion that was supposed to have a stent however he left the hospital prior to this being completed as he was concerned about his being diagnosed with cancer. He admits to chest pressure with shortness of breath. Admits to some nausea and diaphoresis. No ripping or tearing sensation to his back. No numbness, tingling or weakness in his arms. He did take a baby aspirin however refused the remaining aspirin it was recommended by EMS. He received any pain medications prior to hospital arrival. No fevers chills or cough. No alleviating, precipitating or modifying factors - Related Data Home Medications Medication Instructions Recorded Confirmed Aspirin 81 mg PO DAILY 07/09/15 12/06/21 atenoloL [Tenormin] 25 mg PO DAILY 07/09/15 12/06/21 HYDROcodone/APAP 10-325MG [[place] 1 tab PO QID PRN 09/18/21 12/06/21 10-325] Isosorbide Mononitrate ER [Imdur] 30 mg PO DAILY 09/18/21 12/06/21 Pantoprazole Sodium [Protonix] 20 mg PO DAILY 09/18/21 12/06/21 Tamsulosin [Flomax] 0.4 mg PO DAILY 09/18/21 12/06/21 Albuterol Inhaler [Ventolin Hfa 2 puff INHALATION RT-QID PRN 12/06/21 12/06/21 Inhaler] Clopidogrel [Plavix] 75 mg PO DAILY 12/06/21 12/06/21 lisinopriL [Zestril] 20 mg PO DAILY 12/06/21 12/06/21 Allergies Allergy/AdvReac Type Severity Reaction Status Date / Time No Known Allergies Allergy Verified 12/06/21 17:57 Review of Systems ROS Statement: Those systems with pertinent positive or pertinent negative responses have been documented in the HPI. ROS Other: All systems not noted in ROS Statement are negative. Past Medical History Past Medical History: Coronary Artery Disease (CAD), Chest Pain / Angina, COPD, Myocardial Infarction ([place]) Additional Past Medical History / Comment(s): hypotension, trachea stenosis Last Myocardial Infarction Date:: 2005 History of Any Multi-Drug Resistant Organisms: None Reported Past Surgical History: Coronary Bypass/CABG, Heart Catheterization With Stent Additional Past Surgical History / Comment(s): CABG x 2, trachea sx 4 cardiac stent, penile implant Date of Last Stent Placement:: 2005 Past Psychological History: No Psychological Hx Reported Smoking Status: Former smoker Past Alcohol Use History: None Reported Past Drug Use History: None Reported - Past Family History Father Family Medical History: Coronary Artery Disease (CAD) Brother(s) Family Medical History: Coronary Artery Disease (CAD) General Exam Limitations: no limitations General appearance: alert, in no apparent distress Head exam: Present: atraumatic, normocephalic, normal inspection Eye exam: Present: normal appearance, PERRL, EOMI. Absent: scleral icterus, conjunctival injection, periorbital swelling ENT exam: Present: normal exam, mucous membranes moist Neck exam: Present: normal inspection. Absent: tenderness, meningismus, lymphadenopathy Respiratory exam: Present: normal lung sounds bilaterally. Absent: respiratory distress, wheezes, rales, rhonchi, stridor Cardiovascular Exam: Present: regular rate, normal rhythm, normal heart sounds. Absent: systolic murmur, diastolic murmur, rubs, gallop, clicks GI/Abdominal exam: Present: soft, normal bowel sounds. Absent: distended, tenderness, guarding, rebound, rigid Extremities exam: Present: normal inspection, full ROM, normal capillary refill. Absent: tenderness, pedal edema, joint swelling, calf tenderness Back exam: Present: normal inspection Neurological exam: Present: alert, oriented X3, CN II-XII intact Psychiatric exam: Present: normal affect, normal mood Skin exam: Present: warm, dry, intact, normal color. Absent: rash Course Vital Signs 12/06/21 12/06/21 16:00 17:00 Temperature 98.0 F Pulse Rate 86 80 Respiratory 22 18 Rate Blood Pressure 144/59 104/54 O2 Sat by Pulse 92 L 98 Oximetry EKG Findings - EKG Comments: EKG Findings:: First EKG completed at 1611 and demonstrates a sinus rhythm with a ventricular rate of 84. SC interval to 10. QRS 105. QTC of 4:30. Significant baseline artifact. ST depression [address] segment criteria . Q waves present in the inferior leads. Second EKG completed at [address] depression in [address] segment criteria present. Some PVCs. Ventricular rate of 82.SC interval 216. QRS 101. QTC of 435. Q waves present in the inferior leads Medical Decision Making - Medical Decision Making Upon arrival patient is placed into room 24. A thorough history and physical exam was performed. Serial EKGs were completed. IV was established and laboratory studies were conducted. He was given 4 mg of morphine for pain control as well as 3 baby aspirins. Laboratory studies were conducted in the patient for chest x-ray. Review of the patient's labs demonstrated a negative first troponin. Creatinine is up to 1.7, previous of 0.9. BNP 3150. Chest x- ray demonstrates pleural and pulmonary scarring of the right lateral lung base. Improvement in pulmonary interstitial edema. I did discuss the results with Dr. Hester. Recommended initiating the patient's home medications, starting him on a heparin drip and giving him 75 mL of normal saline per hour. I also spoke with Dr. vazquez in regards to the patient. He agreed to the hospital admission is currently waiting on the floor - Lab Data Result diagrams: 12/06/21 16:04 12/06/21 16:04 Lab Results 12/06/21 12/06/21 12/06/21 Range/Units 16:04 16:04 16:04 WBC 11.6 H (3.8-10.6) k/uL RBC 4.58 (4.30-5.90) m/uL Hgb 13.9 (13.0-17.5) gm/dL Hct 42.9 (39.0-53.0) % MCV 93.7 (80.0-100.0) fL MCH 30.3 (25.0-35.0) pg MCHC 32.4 (31.0-37.0) g/dL RDW 15.3 (11.5-15.5) % Plt Count 308 (150-450) k/uL MPV 7.4 Neutrophils % 64 % Lymphocytes % 22 % Monocytes % 4 % Eosinophils % 8 % Basophils % 1 % Neutrophils # 7.5 (1.3-7.7) k/uL Lymphocytes # 2.5 (1.0-4.8) k/uL Monocytes # 0.4 (0-1.0) k/uL Eosinophils # 0.9 H (0-0.7) k/uL Basophils # 0.1 (0-0.2) k/uL Hypochromasia Slight PT (9.0-12.0) sec INR (<1.2) APTT (22.0-30.0) sec Sodium 139 (137-145) mmol/L Potassium 4.8 (3.5-5.1) mmol/L Chloride 104 (98-107) mmol/L Carbon Dioxide 21 L (22-30) mmol/L Anion Gap 14 mmol/L BUN 35 H (9-20) mg/dL Creatinine 1.71 H (0.66-1.25) mg/dL Est GFR (CKD-EPI)AfAm 45 (>60 ml/min/1.73 sqM) Est GFR (CKD-EPI)NonAf 39 (>60 ml/min/1.73 sqM) Glucose 161 H (74-99) mg/dL Calcium 9.3 (8.4-10.2) mg/dL Magnesium 2.2 (1.6-2.3) mg/dL Total Bilirubin 0.5 (0.2-1.3) mg/dL AST 41 (17-59) U/L ALT 17 (4-49) U/L Alkaline Phosphatase 102 (38-126) U/L Troponin I <0.012 (0.000-0.034) ng/mL NT-Pro-B Natriuret Pep pg/mL Total Protein 8.3 H (6.3-8.2) g/dL Albumin 4.4 (3.5-5.0) g/dL Lipase 227 (23-300) U/L 12/06/21 12/06/21 Range/Units 16:04 16:35 WBC (3.8-10.6) k/uL RBC (4.30-5.90) m/uL Hgb (13.0-17.5) gm/dL Hct (39.0-53.0) % MCV (80.0-100.0) fL MCH (25.0-35.0) pg MCHC (31.0-37.0) g/dL RDW (11.5-15.5) % Plt Count (150-450) k/uL MPV Neutrophils % % Lymphocytes % % Monocytes % % Eosinophils % % Basophils % % Neutrophils # (1.3-7.7) k/uL Lymphocytes # (1.0-4.8) k/uL Monocytes # (0-1.0) k/uL Eosinophils # (0-0.7) k/uL Basophils # (0-0.2) k/uL Hypochromasia PT 10.1 (9.0-12.0) sec INR 0.9 (<1.2) APTT 22.8 (22.0-30.0) sec Sodium (137-145) mmol/L Potassium (3.5-5.1) mmol/L Chloride (98-107) mmol/L Carbon Dioxide (22-30) mmol/L Anion Gap mmol/L BUN (9-20) mg/dL Creatinine (0.66-1.25) mg/dL Est GFR (CKD-EPI)AfAm (>60 ml/min/1.73 sqM) Est GFR (CKD-EPI)NonAf (>60 ml/min/1.73 sqM) Glucose (74-99) mg/dL Calcium (8.4-10.2) mg/dL Magnesium (1.6-2.3) mg/dL Total Bilirubin (0.2-1.3) mg/dL AST (17-59) U/L ALT (4-49) U/L Alkaline Phosphatase (38-126) U/L Troponin I (0.000-0.034) ng/mL NT-Pro-B Natriuret Pep 3150 pg/mL Total Protein (6.3-8.2) g/dL Albumin (3.5-5.0) g/dL Lipase (23-300) U/L Disposition Clinical Impression: Chest pain, ASCVD (arteriosclerotic cardiovascular disease) Disposition: ADMITTED IP TO [facility] Condition: Stable Is patient prescribed a controlled substance at d/c from ED?: No Referrals: Jelly Onofre MD [Primary Care Provider] - 1-2 days Decision to Admit Reason: Admit from EC Decision Date: 12/06/21 Decision Time: 18:06
[2021-12-06] MEDS ORDERED: ALBUTEROL NEBULIZED 2.5 MG/3 ML INHALATION PRN (18:01)
[2021-12-06] MEDS ORDERED: HEPARIN SODIUM 1,000 UN/ML (10ML VL) IV ONE (18:01)
[2021-12-06] MEDS ORDERED: HEPARIN SODIUM 1,000 UN/ML (10ML VL) IV PRN (18:01)
--- NOTE | 2021-12-06 18:05 | XR ---
EXAMINATION TYPE: XR chest 2V DATE OF EXAM: 12/06/2021 COMPARISON: 09/18/2021 HISTORY: Chest pain TECHNIQUE: FINDINGS: There is pleural thickening and blunting of the right costophrenic angle. There are sternal wires. There is no heart failure. Heart size is fairly normal. There are no hilar masses. There is c oarse interstitial density in the lungs. IMPRESSION: Pleural and pulmonary scarring right lateral lung base unchanged. There is improvement in the pulmonary interstitial edema compared to old exam.
[2021-12-06] MEDS ORDERED: MORPHINE SULFATE 4 MG/ML SYRINGE IV PRN (18:07)
[2021-12-06] MEDS ORDERED: NALOXONE 0.4 MG/ML 1 ML VIAL IV PRN (18:07)
[2021-12-06] MEDS ORDERED: HEPARIN SOD,PORK IN 0.45% NACL 25,000 UNIT in 0.45% NACL 1 250ML.BAG IV SCH (18:15)
[2021-12-06] MEDS: SODIUM CHLORIDE 0.9% 1,000 ML IV SCH (19:21)
[2021-12-06] MEDS: HYDROcodone/APAP 10-325MG 1 EACH TAB PO PRN (20:03)
[2021-12-06] MEDS: ISOSORBIDE MONONITRATE ER 30 MG TAB.ER.24H PO SCH (22:49)
[2021-12-06] MEDS: MORPHINE SULFATE 2 MG/ML SYRINGE IVP PRN (22:50)
[2021-12-06] MEDS ORDERED: HYDROmorphone 1 MG/ML 1 ML SYRINGE IVP STA (23:12)
[2021-12-07] MEDS: HYDROcodone/APAP 10-325MG 1 EACH TAB PO PRN ×5 (02:50→22:48)
[2021-12-07 05:17] VITALS: RESP 18
[2021-12-07] MEDS: MORPHINE SULFATE 2 MG/ML SYRINGE IVP PRN ×4 (06:18→20:24)
[2021-12-07 06:30] LABS: Basophils # (A) 0.1 k/uL (0-0.2); Basophils % (A) 1 %; Eosinophils # (A) 1.2 k/uL (0-0.7); Eosinophils % (A) 9 %; HCT 33.4 % (39.0-53.0); Hypochromasia Moderate; Lymphocytes # (A) 4.6 k/uL (1.0-4.8); Lymphocytes % (A) 36 %; MCH 30.8 pg (25.0-35.0); MCHC 31.9 g/dL (31.0-37.0); MCV 96.8 fL (80.0-100.0); Mean Platelet Volume 7.6; Monocytes # (A) 0.7 k/uL (0-1.0); Monocytes % (A) 6 %; Neutrophils % (A) 47 %; Platelet Count 277 k/uL (150-450); RBC 3.45 m/uL (4.30-5.90); RDW 14.9 % (11.5-15.5); WBC 12.8 k/uL (3.8-10.6)
[2021-12-07 06:37] LABS: Partial Thromboplastin Time 75.9 sec (22.0-30.0); Prothrombin Time 10.7 sec (9.0-12.0)
[2021-12-07 06:38] LABS: Calcium 8.9 mg/dL (8.4-10.2); Potassium 4.4 mmol/L (3.5-5.1)
[2021-12-07 06:42] LABS: HGB 10.6 gm/dL (13.0-17.5)
[2021-12-07] MEDS ORDERED: SODIUM CHLORIDE 0.9% 1,000 ML IV SCH (07:30)
[2021-12-07] MEDS ORDERED: lisinopriL 20 MG TAB PO SCH ×2 (09:00→21:00)
[2021-12-07] MEDS ORDERED: ISOSORBIDE MONONITRATE ER 30 MG TAB.ER.24H PO SCH (09:00)
[2021-12-07] MEDS ORDERED: atenoloL 25 MG TAB PO SCH (09:00)
--- NOTE | 2021-12-07 09:28 | US ---
EXAMINATION TYPE: US kidneys/renal and bladder DATE OF EXAM: 12/07/2021 COMPARISON: CT 2013 CLINICAL HISTORY: ERIKA. Exam done portable EXAM MEASUREMENTS: Right Kidney: 10.4 x 4.2 x 4.6 cm Left Kidney: 9.4 x 4.5 x 4.2 cm Right Kidney: multiple small cortical cysts with largest measuring 1.4cm Left Kidney: wnl Bladder: distended, 4.8 x 4.0 x 7.4cm anechoic area seen superior to bladder, ? implant reservoir (kyle bolanosnt states he has a penile implant Bilateral Jets seen: no No hydronephrosis or nephrolithiasis. IMPRESSION: There is a 4.8 x 7.4 cm anechoic area seen superior to bladder which is indeterminate and could be re lated to implant reservoir or cystic mass. Other etiologies are not excluded. CT scan recommended of the pelvis. Hypoechoic lesions involving the kidneys too small to characterize but statistically most likely rela darron to cysts.
--- NOTE | 2021-12-07 09:38 | P.NPCON ---
History of Present Illness - Reason for Consult acute renal failure - History of Present Illness Reason for consultation: Acute kidney injury History of present illness: Patient is a 71-year-old male seen in renal consultation for acute kidney injury. Patient's creatinine in August 2021 was near 1. This admission was elevated at 1.71 and is fairly stable at 1.64. Patient denies any hematuria or dysuria. No vomiting or diarrhea. Patient presented to the hospital with chest pain. Patient states he had 3 cardiac stents placed at [facility] in October 2021. He also states that he needs more stenting which will be done at a later date. He is currently receiving IV fluids. He denies use of nonsteroidals. No history of diabetes. No shortness of breath. Currently on 3 L nasal cannula. Blood pressure stable. Blood pressure was 88/50 earlier this morning. Lisinopril has been discontinued. Patient states he does not follow with nephrology outpatient. Vital signs are stable. General: The patient appeared well nourished and normally developed. HEENT: Head exam is unremarkable. LUNGS: Breath sounds decreased. HEART: Rate and Rhythm are regular. ABDOMEN: Soft, no distention. EXTREMITITES: No edema. Past Medical History Past Medical History: Coronary Artery Disease (CAD), Chest Pain / Angina, COPD, Myocardial Infarction ([place]) Additional Past Medical History / Comment(s): hypotension, trachea stenosis Last Myocardial Infarction Date:: 2005 History of Any Multi-Drug Resistant Organisms: None Reported Past Surgical History: Coronary Bypass/CABG, Heart Catheterization With Stent Additional Past Surgical History / Comment(s): CABG x 2, trachea sx 4 cardiac stent, penile implant Past Anesthesia/Blood Transfusion Reactions: No Reported Reaction Date of Last Stent Placement:: 2005 Smoking Status: Former smoker - Past Family History Father Family Medical History: Coronary Artery Disease (CAD) Brother(s) Family Medical History: Coronary Artery Disease (CAD) Medications and Allergies Home Medications Medication Instructions Recorded Confirmed Type Aspirin 81 mg PO DAILY 07/09/15 12/06/21 History atenoloL [Tenormin] 25 mg PO DAILY 07/09/15 12/06/21 History HYDROcodone/APAP 10-325MG [[place] 1 tab PO QID PRN 09/18/21 12/06/21 History 10-325] Isosorbide Mononitrate ER [Imdur] 30 mg PO DAILY 09/18/21 12/06/21 History Pantoprazole Sodium [Protonix] 20 mg PO DAILY 09/18/21 12/06/21 History Tamsulosin [Flomax] 0.4 mg PO DAILY 09/18/21 12/06/21 History Albuterol Inhaler [Ventolin Hfa 2 puff INHALATION RT-QID PRN 12/06/21 12/06/21 History Inhaler] Clopidogrel [Plavix] 75 mg PO DAILY 12/06/21 12/06/21 History lisinopriL [Zestril] 20 mg PO DAILY 12/06/21 12/06/21 History Allergies Allergy/AdvReac Type Severity Reaction Status Date / Time No Known Allergies Allergy Verified 12/06/21 17:57 Physical Exam Vitals: Vital Signs Temp Pulse Pulse Resp BP BP Pulse Ox 12/07/21 06:15 61 126/61 12/07/21 04:00 97 F L 67 18 88/50 100 12/07/21 02:00 67 22 12/07/21 00:00 97.7 F 67 22 106/53 99 12/06/21 20:00 61 22 101/52 100 12/06/21 19:05 66 19 12/06/21 19:00 66 19 105/60 93 L 12/06/21 18:30 78 18 99/58 98 12/06/21 17:00 80 18 104/54 98 12/06/21 16:00 98.0 F 86 22 144/59 92 L Intake and Output 12/06/21 12/07/21 12/07/21 22:59 06:59 14:59 Intake Total 281.519 240 Output Total 250 Balance 31.519 240 Intake: Intake, IV Titration 81.519 Amount Heparin Sod,Pork in 0.45% 81.519 NaCl 25,000 unit In 0.45 % NaCl 1 250ml.bag @ 12 UNITS/KG/HR 6.532 mls/hr IV .Q24H [facility] Rx#: [id number] Oral 200 240 Output: Urine 250 Other: Voiding Method Urinal Urinal # Voids 0 Weight 54.431 kg Results - Lab Results Most recent lab results Calcium 8.9 mg/dL (8.4-10.2) 12/07/21 06:15 Magnesium 2.2 mg/dL (1.6-2.3) 12/06/21 16:04 12/07/21 06:15 12/07/21 06:15 Assessment and Plan Plan: Assessment: 1. Acute kidney injury secondary to ATN versus chronic kidney disease. Creatinine in August 2021 was near 1. This admission was 1.71 and is stable at 1.64 today. No hydronephrosis noted on kidney ultrasound. 2. Chest pain. Cardiology following. 3. Coronary artery disease status post cardiac stenting October 2021. 4. Metabolic acidosis secondary to acute kidney injury and IV fluids. 5. Bladder mass. Patient states he's aware and was scheduled to have CT of the abdomen and pelvis done outpatient. Plan: Maintain IV fluids with normal saline at 80 mL an hour. Check urinalysis. Follow-up CT of the pelvis. Consider urology consult for the bladder mass. Avoid nephrotoxins. Continue to monitor renal function and urine output. Thank you for the consultation. I will continue to follow the patient with you during his hospital stay.
[2021-12-07] MEDS: TAMSULOSIN 0.4 MG CAP.ER.24H PO SCH (10:11)
[2021-12-07] MEDS: ASPIRIN 81 MG PO SCH (10:11)
[2021-12-07] MEDS: ISOSORBIDE MONONITRATE ER 30 MG TAB.ER.24H PO SCH ×2 (10:11→20:24)
[2021-12-07] MEDS: PANTOPRAZOLE 40 MG TABLET PO SCH (10:11)
[2021-12-07] MEDS: ATORVASTATIN 40 MG TAB PO SCH (10:12)
[2021-12-07] MEDS: CLOPIDOGREL 75 MG TAB PO SCH (10:12)
[2021-12-07] MEDS: HEPARIN SODIUM,PORCINE/PF 5,000 UNIT/0.5 ML SYRINGE SQ SCH ×2 (10:22→22:54)
[2021-12-07] MEDS: SODIUM CHLORIDE 0.9% 1,000 ML IV SCH ×2 (10:23→20:20)
--- NOTE | 2021-12-07 10:55 | CONS ---
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 He also has had previous stenting done, including stenting of left subclavian. He was recently hospitalized in August with a [id number]-coiivaoss SC. 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 He underwent stenting of this vessel after transfer to [facility]. He has had an excellent result. Distal circumflex is totally occluded, and this is initial SC in 1991 without much myocardium in that distribution. He was advised medical therapy. He came into the hospital complaining of some discomfort in the chest and shortness of breath. He took a baby aspirin and came in. After arrival he was found to have an EKG that revealed old inferior SC without acute changes. He has been hospitalized with intravenous heparin. Three sets of troponins are unremarkable. He has pain, but it is very atypical. I have reviewed his angiograms from [facility]. He had actually a very good result, and the ostium of the circumflex and ostium of the LAD also both were opened up. His graft to the LAD, which was a free right internal mammary artery graft, was actually doing very well, opacifying the entire left system. This morning he is comfortable, pain-free. He indicates to me that he has quit smoking, but he still has bilateral scattered rhonchi. He is resting at the time of my evaluation. PAST MEDICAL HISTORY: 1. CAD with the initial bypass surgery in 1991 with a SELBY to LAD and two vein grafts to the diagonal and circumflex. Over the years, circumflex and diagonal grafts were occluded and stented. He also had stenting of left subclavian which had developed stenosis to improve perfusion in the SELBY. Subsequently in 2006 he went on to have a redo bypass surgery at [facility]. This was a very important operation in the sense he had a free right internal mammary graft that was attached to the grier of the vein graft proximally and then distally it opacified the LAD. This graft was widely patent with good flow in the entire LAD system and also the diagonal and septal systems. No other vein grafts were visualized on recent cardiac cath. 2. He has history of smoking and COPD, which he claims he has quit. 3. History of pulmonary fibrosis. 4. History of benign prostatic hypertrophy. 5. His ejection fraction is in the range of 40% to 45% with inferolateral hypokinesia. MEDICATIONS: Medications at home include aspirin, Plavix, Flomax, Imdur. He also takes [place], atenolol 25 mg daily. He also takes a Ventolin inhaler. ALLERGIES: NONE. PHYSICAL EXAMINATION: On examination, blood pressure is 126/60, pulse rate is 64 per minute, regular. HEENT unremarkable. Fundus was not examined by me. Neck is supple. There is no JVD. I do not hear any carotid bruit. Heart exam reveals S1, S2 heard normally. There is a short systolic murmur at left sternal border. Lungs reveal fine scattered rales, both bases, with scattered expiratory rhonchi. Abdomen is soft, nontender. Lower extremities reveal diminished pulses. Central nervous system: No focal deficits. IMPRESSION: 1. Chest pain syndrome; does not suggest angina. 2. Mild exacerbation of chronic obstructive pulmonary disease in a patient with past history of smoking. 3. History of coronary artery disease with multiple bypass surgery and recent stenting of distal left main/ostial circumflex in August 2021. 4. Peripheral vascular disease. 5. History of chronic pain syndrome. RECOMMENDATIONS: I am recommending that we can discontinue IV heparin, increase activity. His creatinine went up to 1.7. With hydration, it has come down. I will hydrate him for the next few hours, repeat a creatinine, increase activity, perform echocardiogram, and if he has no further symptoms he can be discharged this afternoon. I will add atorvastatin 40 mg daily to his regimen and also he will see Dr. Sosa upon discharge in about a week or so. Discussed my thoughts in detail with the patient. Thank you very much for the consult. EKG revealed old inferior SC, no acute changes. MMODL / IJN: [id number] /
--- NOTE | 2021-12-07 11:56 | CT ---
EXAMINATION TYPE: CT pelvis wo con DATE OF EXAM: 12/07/2021 COMPARISON: Ultrasound dated 12/07/[address] dated 08/28/2013 HISTORY: Bladder mass CT DLP: 249.6 mGycm Automated exposure control for dose reduction was used. TECHNIQUE: Multiplanar nonenhanced CT scan of the pelvis without oral or IV contrast administration. FINDINGS: The ultrasound described anechoic area seen along the right superior aspect of the urinary bladder is consistent with a reservoir for the known penile implant. This reservoir is inseparable from the uri nary bladder wall. No definite urinary bladder lesion or other abnormality with the limitation of thi s nonenhanced CT scan. 4.9 cm fluid is seen along the right lateral aspect of the penile prosthesis i n the right side of the scrotum, not completely included in the scan. No prostatic enlargement with tiny prostatic concretion. Unremarkable seminal vesicles. Grossly unrem arkable visualized small and large bowel. No sizable pelvic collection. No suspicious pelvic lymphade nopathy. Scattered arterial atherosclerotic calcifications. Infrarenal abdominal aortic ectasia measu ring up to 2.3 cm. Questionable tiny 2 mm calculus at the lower pole of the left kidney, not complete ly included in the scan. No aggressive bone lesion. IMPRESSION: [place] of penile implant adjacent to the urinary bladder as described above. No definite urinary b ladder abnormality identified otherwise by this nonenhanced CT scan. Incidental findings as described above.
--- NOTE | 2021-12-07 12:44 | ECHOF ---
Referral Reason: MEASUREMENTS -------- HEIGHT: 165.1 cm WEIGHT: 54.4 kg BP: IVSd: 0.9 cm (0.6 - 1.1) LVIDd: 3.5 cm (3.9 - 5.3) LVPWd: 0.9 cm (0.6 - 1.1) IVSs: 1.1 cm LVIDs: 2.8 cm LVPWs: 0.6 cm LAESV Index (A-L): 23.46 ml/m Ao Diam: 3.3 cm (2.0 - 3.7) AV Cusp: 1.8 cm (1.5 - 2.6) LA Diam: 3.6 cm (2.7 - 3.8) MV EXCURSION: 20.130 mm (> 18.000) MV EF SLOPE: 73 mm/s (70 - 150) EPSS: 2.3 cm MV E Jewel: 0.95 m/s MV DecT: 174 ms MV A Jewel: 0.60 m/s MV E/A Ratio: 1.58 AR PHT: 830 ms RAP: 15.00 mmHg RVSP: 20.90 mmHg FINDINGS -------- Sinus rhythm. This was a technically adequate study. The left ventricular size is normal. Left ventricular wall thickness is normal. Overall left vent ricular systolic function is mildly impaired with, an EF between 45 - 50 %. Normal LAP Grade 1 [place] tolic Dysfunction. Basal inferior LV wall motion is hypokinetic. Basal inferoseptal LV wall dre on is hypokinetic. Mid inferior LV wall motion is hypokinetic. The right ventricle is normal in size. Normal LA size by volume 22+/-6 ml/m2. The right atrial size is normal. The aortic valve was not well visualized. There is moderate aortic regurgitation. Mild mitral annular calcification present. Mild mitral regurgitation is present. The tricuspid valve appears structurally normal. Mild tricuspid regurgitation present. Right vent ricular systolic pressure is normal at < 35 mmHg. There is no pulmonic regurgitation present. The aortic root size is normal. The inferior vena cava is mildly dilated. There is no pericardial effusion. CONCLUSIONS -------- 1. Left ventricular wall thickness is normal. 2. Overall left ventricular systolic function is mildly impaired with, an EF between 45 - 50 %. 3. Normal LAP Grade 1 Diastolic Dysfunction. 4. Basal inferior LV wall motion is hypokinetic. 5. Basal inferoseptal LV wall motion is hypokinetic. 6. Mid inferior LV wall motion is hypokinetic. 7. Normal LA size by volume 22+/-6 ml/m2. 8. There is moderate aortic regurgitation. 9. Mild mitral regurgitation is present. 10. Mild tricuspid regurgitation present. 11. The inferior vena cava is mildly dilated. 12. There is no pericardial effusion. NARROW [employer]AB[employer] CALENDERER: Gladys Wilkerson RDCS
--- NOTE | 2021-12-07 13:16 | XR ---
EXAMINATION TYPE: XR chest 1V portable DATE OF EXAM: 12/07/2021 COMPARISON: 12/06/2021 HISTORY: Shortness of breath TECHNIQUE: Single frontal view of the chest is obtained. FINDINGS: Postoperative change. Heart size normal. Hyperinflation. Bilateral consolidation and pleur al effusion with pleural-based thickening along the right lateral rib cage. A loculated pleural effus ion in the differential diagnosis. IMPRESSION: 1. COPD with bilateral infiltrate and pleural effusion. A loculated fluid collection or pleural-based mass along the periphery of the right lung in differential diagnosis.
--- NOTE | 2021-12-07 20:31 | P.HPIM ---
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 Patient rather significant cardiac history. Patient had a previous coronary bypass and 1991 and 2006. Ulcers had previous stenting done. Patient was attempted for hospital 2 weeks ago. Underwent coronary stenting there. It appears patient has a chronically occluded circumflex. Patient had been smoking up until a few weeks ago. Not very active. Patient yesterday developed chest pressure going across the chest. Shortness of breath. Some perspiration. Chest tightness. Not relieved with nitro. Patient presented to the ER. Admitted with unstable angina. Troponin was negative. Placed on IV heparin. Patient does follow with director digital Dr. SADIE Hester. Patient hasn't been very active. Patient also has been losing weight. Patient also in significant stress as his is undergoing treatment for stomach cancer. And his eldest son also recently had a stroke. Patient still having pain when I saw him on the floor. IV heparin. Added Imdur 30 mg a evening. Review of systems: GEN.: Tired, decreased appetite and weight loss EYES: None HEENT: None NECK: None RESPIRATORY: As above CARDIOVASCULAR: As above GASTROINTESTINAL: None GENITOURINARY: None MUSCULOSKELETAL: None LYMPHATICS: None HEMATOLOGICAL: None PSYCHIATRY: Anxiety NEUROLOGICAL: None Past medical history to include: CAD, COPD, trachea stenosis, Social history: 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 Family history: CAD Physical examination: VITAL SIGNS: 98, 86, 22, 144/59, 92% on room air GENERAL: BMI 20, sitting on bed, anxious, short of breath. EYES: Pupils equal. Conjunctiva normal. HEENT: External appearance of nose and ears normal, oral cavity grossly normal. NECK: JVD not raised; masses not palpable. HEART: First and second heart sounds are normal; no edema. LUNGS: Respiratory rate increased; decreased breath sounds. ABDOMEN: Soft, nontender, liver spleen not palpable, no masses palpable. PSYCH: Alert and oriented x3; mood and affect anxiousl. MUSCULOSKELETAL:No Clubbing/cyanosis;muscles-grossly intact. Muscle muscle mass and subcutaneous fat NEUROLOGICAL: Cranial nerves grossly intact; no facial asymmetry, power and sensation grossly intact. LYMPHATICS: No lymph nodes palpable in the axilla and neck INVESTIGATIONS, reviewed in the clinical context: White count 11.6 hemoglobin 13.9 platelets 308 potassium 4.8 BUN 35 creatinine 1.71 Troponin I less than 0.012 proBNP 3150 Coronavirus [PCR]: Not detected EKG tracing personally reviewed by me-normal sinus rhythm. Subtle ST segment changes. Chest x-ray film personally reviewed by me-possibly chronic changes Previous labs: Creatinine 0.9 for August 2021 Assessment and plan: -Unstable angina in a patient with known extensive cardiac disease. Troponin negative. Patient having active chest pain. Add Imdur 30 mg in the evening. IV heparin. Follow with Dr. SADIE Hester from cardiology. -CAD with a prior history of bypass in 1991 and 2006. Also stenting. Chronically occluded circumflex. Recent intervention successful at [address] [place] [address]. Aspirin, Tenormin, Lipitor, Plavix -BPH Flomax 0.4 mg daily -GERD Protonix 20 mg daily -COPD in a long-standing smoker discontinued recently Ventolin HFA when necessary -Chronic muscular skeletal pain [place] 10 one tablet 4 times a day when necessary -Acute on chronic medical debility Fall precautions -Mild protein calorie malnutrition from decreased oral intake Ensure -IV heparin monitoring Follow PTT -Acute kidney Injury. Note patient recently had intervention at an different hospital. This could be related to the cardiac catheterization. IV fluids. Follow labs. Care was discussed at length with the patient of the bedside. He is on IV heparin. Imdur 30 mg the evening is being added. Continue home medications. Gentle hydration. Past Medical History Past Medical History: Coronary Artery Disease (CAD), Chest Pain / Angina, COPD, Myocardial Infarction (NE) Additional Past Medical History / Comment(s): hypotension, trachea stenosis Last Myocardial Infarction Date:: 2005 History of Any Multi-Drug Resistant Organisms: None Reported Past Surgical History: Coronary Bypass/CABG, Heart Catheterization With Stent Additional Past Surgical History / Comment(s): CABG x 2, trachea sx 4 cardiac stent, penile implant Past Anesthesia/Blood Transfusion Reactions: No Reported Reaction Date of Last Stent Placement:: 2005 Smoking Status: Former smoker - Past Family History Father Family Medical History: Coronary Artery Disease (CAD) Brother(s) Family Medical History: Coronary Artery Disease (CAD) Medications and Allergies Home Medications Medication Instructions Recorded Confirmed Type Aspirin 81 mg PO DAILY 07/09/15 12/06/21 History atenoloL [Tenormin] 25 mg PO DAILY 07/09/15 12/06/21 History HYDROcodone/APAP 10-325MG [[place] 1 tab PO QID PRN 09/18/21 12/06/21 History 10-325] Isosorbide Mononitrate ER [Imdur] 30 mg PO DAILY 09/18/21 12/06/21 History Pantoprazole Sodium [Protonix] 20 mg PO DAILY 09/18/21 12/06/21 History Tamsulosin [Flomax] 0.4 mg PO DAILY 09/18/21 12/06/21 History Albuterol Inhaler [Ventolin Hfa 2 puff INHALATION RT-QID PRN 12/06/21 12/06/21 History Inhaler] Clopidogrel [Plavix] 75 mg PO DAILY 12/06/21 12/06/21 History lisinopriL [Zestril] 20 mg PO DAILY 12/06/21 12/06/21 History Allergies Allergy/AdvReac Type Severity Reaction Status Date / Time No Known Allergies Allergy Verified 12/06/21 17:57 Physical Exam Vitals: Vital Signs Temp Pulse Pulse Resp BP BP Pulse Ox 12/06/21 20:00 66 22 101/52 100 12/06/21 19:05 66 19 12/06/21 19:00 66 19 105/60 93 L 12/06/21 18:30 78 18 99/58 98 12/06/21 17:00 80 18 104/54 98 12/06/21 16:00 98.0 F 86 22 144/59 92 L Intake and Output 12/06/21 12/06/21 12/07/21 14:59 22:59 06:59 Other: # Voids 0 Weight 54.431 kg Results CBC & Chem 7: 12/07/21 06:15 12/07/21 14:20 Labs: Abnormal Lab Results - Last 24 Hours (Table) 12/06/21 12/06/21 Range/Units 16:04 16:04 WBC 11.6 H (3.8-10.6) k/uL Eosinophils # 0.9 H (0-0.7) k/uL Carbon Dioxide 21 L (22-30) mmol/L BUN 35 H (9-20) mg/dL Creatinine 1.71 H (0.66-1.25) mg/dL Glucose 161 H (74-99) mg/dL Total Protein 8.3 H (6.3-8.2) g/dL Thrombosis Risk Factor Assmnt - Choose All That Apply Each Risk Factor Represents 2 Points: Age 61-74 years Thrombosis Risk Factor Assessment Total Risk Factor Score: 2 Thrombosis Risk Factor Assessment Level: Low Risk
--- NOTE | 2021-12-07 20:40 | P.PN ---
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 Patient had a previous coronary bypass and 1991 and 2006. Ulcers had previous stenting done. Patient was attempted for hospital 2 weeks ago. Underwent coronary stenting there. It appears patient has a chronically occluded circumflex. Patient had been smoking up until a few weeks ago. Not very active. Patient yesterday developed chest pressure going across the chest. Shortness of breath. Some perspiration. Chest tightness. Not relieved with nitro. Patient presented to the ER. Admitted with unstable angina. Troponin was negative. Placed on IV heparin. Patient does follow with city mail carrier Dr. SADIE Hester. Patient hasn't been very active. Patient also has been losing weight. Patient also in significant stress as his is undergoing treatment for stomach cancer. And his eldest son also recently had a stroke. Patient still having pain when I saw him on the floor. IV heparin. Added Imdur 30 mg a evening. Admitted with unstable angina, acute kidney injury,. IV fluids. Nitrates added. IV heparin drip. December 07: Chest pain is better. Some shortness of breath. IV fluids. Blood pressure is running low. Nephrology consulted. Care was discussed with the patient and his son kareem at bedside. Patient wants to be a DO NOT RESUSCITATE. IV heparin was discontinued this morning. Add bronchodilators inhaled steroids. Active Medications Hydrocodone Bitart/Acetaminophen (Hydrocodone/Apap 10-325mg 1 Each Tab) 1 each PO QID PRN PRN Reason: Pain Last Admin: 12/07/21 17:57 Dose: 1 each Documented by: Albuterol Sulfate (Albuterol Nebulized 2.5 Mg/3 Ml) 2.5 mg INHALATION RT-QID PRN PRN Reason: Shortness Of Breath Albuterol/Ipratropium (Ipratropium-Albuterol 3 Ml Neb) 3 ml INHALATION RT-QID [facility] Aspirin (Aspirin 81 Mg) 81 mg PO DAILY [facility] Last Admin: 12/07/21 10:11 Dose: 81 mg Documented by: Atenolol (Atenolol 25 Mg Tab) 25 mg PO DAILY [facility] Last Admin: 12/07/21 10:11 Dose: 25 mg Documented by: Atorvastatin Calcium (Atorvastatin 40 Mg Tab) 40 mg PO DAILY [facility] Last Admin: 12/07/21 10:12 Dose: Not Given Documented by: Budesonide (Budesonide 1 Mg/2 Ml Nebu) 1 mg INHALATION RT-BID [facility] Clopidogrel Bisulfate (Clopidogrel 75 Mg Tab) 75 mg PO DAILY [facility] Last Admin: 12/07/21 10:12 Dose: 75 mg Documented by: Heparin Sodium (Porcine) (Heparin Sodium,Porcine/Pf 5,000 Unit/0.5 Ml Syringe) 5,000 unit SQ Q12HR [facility] Last Admin: 12/07/21 10:22 Dose: Not Given Documented by: Sodium Chloride (Saline 0.9%) 1,000 mls @ 80 mls/hr IV .[id number] [facility] Last Admin: 12/07/21 20:20 Dose: 80 mls/hr Documented by: Isosorbide Mononitrate (Isosorbide Mononitrate Er 30 Mg Tab.Er.24h) 30 mg PO BID [facility] Last Admin: 12/07/21 20:24 Dose: 30 mg Documented by: Melatonin (Melatonin 5 Mg Tablet) 10 mg PO HS PRN PRN Reason: imsomnia Morphine Sulfate (Morphine Sulfate 2 Mg/Ml Syringe) 2 mg IVP Q3HR PRN PRN Reason: Pain/Discomfort Last Admin: 12/07/21 20:24 Dose: 2 mg Documented by: Naloxone HCl (Naloxone 0.4 Mg/Ml 1 Ml Vial) 0.2 mg IV Q2M PRN PRN Reason: Opioid Reversal Pantoprazole Sodium (Pantoprazole 40 Mg Tablet) 40 mg PO DAILY [facility] Last Admin: 12/07/21 10:11 Dose: 40 mg Documented by: Tamsulosin HCl (Tamsulosin 0.4 Mg Cap.Er.24h) 0.4 mg PO DAILY [facility] Last Admin: 12/07/21 10:11 Dose: 0.4 mg Documented by: Past medical history to include: CAD, COPD, trachea stenosis, Social history: 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 Family history: CAD Physical examination: VITAL SIGNS: 97.9, 70, 19, 94/47, 99% on 3 L GENERAL: Reclining in bed, breathing better.. EYES: Pupils equal. Conjunctiva normal. HEENT: External appearance of nose and ears normal, oral cavity grossly normal. NECK: JVD not raised; masses not palpable. HEART: First and second heart sounds are normal; no edema. LUNGS: Respiratory rate increased; decreased breath sounds. Some wheezing ABDOMEN: Soft, nontender, liver spleen not palpable, no masses palpable. PSYCH: Alert and oriented x3; mood and affect anxious. MUSCULOSKELETAL:No Clubbing/cyanosis;muscles-grossly intact. Decreased Muscle muscle mass and subcutaneous fat INVESTIGATIONS, reviewed in the clinical context: December 07: White count 12.8 hemoglobin 10.6 platelets 277 potassium 4.4 BUN 33 creatinine 1.64 bicarb 20 Computed tomography scan abdomen: Findings delineated to penile implant. 2-D echo: EF 45-50%. Wall motion abnormalities. Moderate aortic regurgitation. White count 11.6 hemoglobin 13.9 platelets 308 potassium 4.8 BUN 35 creatinine 1.71 Troponin I less than 0.012 proBNP 3150 Coronavirus [PCR]: Not detected EKG tracing personally reviewed by me-normal sinus rhythm. Subtle ST segment changes. Chest x-ray film personally reviewed by me-possibly chronic changes Previous labs: Creatinine 0.9 for August 2021 Assessment and plan: -Unstable angina in a patient with known extensive cardiac disease. Troponin negative. Patient having active chest pain. Add Imdur 30 mg in the evening. IV heparin. Follow with Dr. SADIE Hester from cardiology. -CAD with a prior history of bypass in 1991 and 2006. Also stenting. Chronically occluded circumflex. Recent intervention successful at [facility] Aspirin, Tenormin, Lipitor, Plavix -BPH Flomax 0.4 mg daily -Hypotension possibly from decreased oral intake prerenal IV fluids. -GERD Protonix 20 mg daily -COPD in a long-standing smoker discontinued recently Ventolin HFA when necessary -Chronic muscular skeletal pain [place] 10 one tablet 4 times a day when necessary -Acute on chronic medical debility Fall precautions -Mild protein calorie malnutrition from decreased oral intake Ensure -IV heparin monitoring Follow PTT -Acute kidney Injury. Note patient recently had intervention at an different hospital. This could be related to the cardiac catheterization. IV fluids. Follow labs. IV fluids. IV heparin discontinued. Follow with cardiology and nephrology. Care was discussed with the patient. Change atenolol to Lopressor 12.5 twice a day possibly better. 4 Blood pressure. Follow with cardiology and nephrology. Advanced care planning This was discussed with the patient and his son at the bedside. Questions answered. After lengthy discussion patient has decided to proceed with DO NOT RESUSCITATE. No CPR and no intubation. Questions were answered. More than 30 minutes was spent for this.
[2021-12-07] MEDS: SODIUM BICARBONATE TAB 650 MG TAB PO SCH (22:54)
[2021-12-07 23:20] LABS: Appearance,Urine Clear (Clear); Bilirubin,Urine Negative (Negative); Blood,Urine Negative (Negative); Color,Urine Light Yellow; Glucose,Urine (UA) Negative (Negative); Ketones,Urine Negative (Negative); Leukocyte Esterase,Urine Negative (Negative); Nitrite,Urine Negative (Negative); Protein,Urine Negative (Negative); Specific Gravity,Urine 1.013 (1.001-1.035); Urobilinogen,Urine <2.0 mg/dL (<2.0)
[2021-12-08] MEDS: MELATONIN 5 MG TABLET PO PRN ×2 (00:54→23:14)
[2021-12-08] MEDS: MORPHINE SULFATE 2 MG/ML SYRINGE IVP PRN ×6 (02:10→20:02)
[2021-12-08] MEDS ORDERED: FUROSEMIDE 10 MG/ML 2 ML VIAL IV ONE ×2 (05:16→15:00)
[2021-12-08] MEDS: HYDROcodone/APAP 10-325MG 1 EACH TAB PO PRN ×3 (05:28→18:06)
[2021-12-08] MEDS: IPRATROPIUM-ALBUTEROL 3 ML NEB INHALATION SCH ×4 (05:32→20:12)
[2021-12-08] MEDS: BUDESONIDE 1 MG/2 ML NEBU INHALATION SCH ×2 (05:32→20:12)
[2021-12-08 05:58] LABS: Basophils # (A) 0.1 k/uL (0-0.2); Basophils % (A) 1 %; Eosinophils # (A) 1.3 k/uL (0-0.7); Eosinophils % (A) 11 %; HCT 36.4 % (39.0-53.0); HGB 11.2 gm/dL (13.0-17.5); Hypochromasia Slight; Lymphocytes # (A) 3.2 k/uL (1.0-4.8); Lymphocytes % (A) 29 %; MCH 29.6 pg (25.0-35.0); MCHC 30.9 g/dL (31.0-37.0); MCV 95.8 fL (80.0-100.0); Mean Platelet Volume 7.5; Monocytes # (A) 0.7 k/uL (0-1.0); Monocytes % (A) 6 %; Neutrophils # (A) 5.5 k/uL (1.3-7.7); Neutrophils % (A) 50 %; Platelet Count 279 k/uL (150-450); RDW 15.4 % (11.5-15.5)
[2021-12-08 06:10] LABS: Calcium 8.7 mg/dL (8.4-10.2); Potassium 4.9 mmol/L (3.5-5.1)
--- NOTE | 2021-12-08 06:19 | XR ---
EXAM: XR Chest, 1 View CLINICAL HISTORY: ITS.REASON XR Reason: fluid overloaded TECHNIQUE: Frontal view of the chest. COMPARISON: 12/07/21 FINDINGS: Lungs: Interval increase lung markings with coarse appearance, likely component of chronic lung disease. Pleural space: Again seen are blunting of the costophrenic angle with peripheral opacity in the right lateral lower chest. As previously mentioned, these may represent small effusion and/or oral thickening. Loculated component in the lateral right lower chest difficult to exclude and appear unchanged. No pneumothorax. Heart: Unremarkable. No cardiomegaly. Mediastinum: Unremarkable. Bones/joints: Status post median sternotomy. Tubes, lines and devices: Overlying chest leads obscure portion of the chest. IMPRESSION: 1. Mild edema or interstitial pneumonia superimposed on chronic lung disease. 2. Redemonstration of small bilateral pleural effusion and/or pleural thickening with loculated component in the right lower chest as described
[2021-12-08] MEDS: TAMSULOSIN 0.4 MG CAP.ER.24H PO SCH (08:46)
[2021-12-08] MEDS: ASPIRIN 81 MG PO SCH (08:46)
[2021-12-08] MEDS: ISOSORBIDE MONONITRATE ER 30 MG TAB.ER.24H PO SCH ×2 (08:46→20:03)
[2021-12-08] MEDS: CLOPIDOGREL 75 MG TAB PO SCH (08:46)
[2021-12-08] MEDS: PANTOPRAZOLE 40 MG TABLET PO SCH (08:46)
[2021-12-08] MEDS: METOPROLOL TARTRATE 12.5 MG TAB PO SCH ×2 (08:47→20:03)
[2021-12-08] MEDS: HEPARIN SODIUM,PORCINE/PF 5,000 UNIT/0.5 ML SYRINGE SQ SCH (08:51)
[2021-12-08] MEDS: SODIUM CHLORIDE 0.9% 1,000 ML IV SCH (08:51)
[2021-12-08] MEDS: ATORVASTATIN 40 MG TAB PO SCH (08:51)
[2021-12-08] MEDS: SODIUM BICARBONATE TAB 650 MG TAB PO SCH ×2 (08:51→13:02)
--- NOTE | 2021-12-08 09:00 | P.PN ---
Subjective Patient is seen in follow-up for acute kidney injury. Renal function is stable. Currently on 3 L is a cannula. [place] short of breath this morning and received a dose of IV Lasix and breathing treatment. Better now. Good urine output. Vital signs are stable. General: On nasal cannula. HEENT: Head exam is unremarkable. LUNGS: Breath sounds decreased. HEART: Rate and Rhythm are regular. ABDOMEN: Soft, no distention. EXTREMITITES: No edema. Objective - Vital Signs Vital signs: Vital Signs Temp 97.7 F 12/08/21 08:00 Pulse 95 12/08/21 08:00 Resp 18 12/08/21 08:00 BP 95/52 12/08/21 08:00 Pulse Ox 100 12/08/21 08:00 Intake & Output 12/07/21 12/08/21 12/08/21 18:59 06:59 18:59 Intake Total 240 480 120 Output Total 600 550 400 Balance -360 -70 -280 Intake: Oral 240 480 120 Output: Urine 600 550 400 Other: Voiding Method Urinal Urinal - Labs CBC & Chem 7: 12/08/21 05:43 12/08/21 05:43 Labs: Abnormal Lab Results - Last 24 Hours (Table) 12/07/21 12/07/21 12/08/21 Range/Units 14:20 14:20 05:43 WBC (3.8-10.6) k/uL RBC (4.30-5.90) m/uL Hgb (13.0-17.5) gm/dL Hct (39.0-53.0) % MCHC (31.0-37.0) g/dL Eosinophils # (0-0.7) k/uL Chloride 111 H (98-107) mmol/L Carbon Dioxide 18 L (22-30) mmol/L BUN 29 H (9-20) mg/dL Creatinine 1.51 H 1.56 H (0.66-1.25) mg/dL Glucose 110 H (74-99) mg/dL Hemoglobin A1c 7.2 H (0.0-6.0) % 12/08/21 Range/Units 05:43 WBC 11.0 H (3.8-10.6) k/uL RBC 3.80 L (4.30-5.90) m/uL Hgb 11.2 L (13.0-17.5) gm/dL Hct 36.4 L (39.0-53.0) % MCHC 30.9 L (31.0-37.0) g/dL Eosinophils # 1.3 H (0-0.7) k/uL Chloride (98-107) mmol/L Carbon Dioxide (22-30) mmol/L BUN (9-20) mg/dL Creatinine (0.66-1.25) mg/dL Glucose (74-99) mg/dL Hemoglobin A1c (0.0-6.0) % Assessment and Plan Plan: Assessment: 1. Acute kidney injury secondary to ATN versus chronic kidney disease. Creatinine in August 2021 was near 1. This admission was 1.71 and is stable at 1.56 today. No hydronephrosis noted on kidney ultrasound. UA benign. 2. Chest pain. Cardiology following. 3. Coronary artery disease status post cardiac stenting October 2021. 4. Metabolic acidosis secondary to acute kidney injury and IV fluids. 5. Bladder mass. Patient states he's aware and was scheduled to have CT of the abdomen and pelvis done outpatient. CT of the pelvis done this admission showed no urinary bladder abnormality. 6. Acute systolic CHF with ejection fraction of 40-45% with moderate aortic regurgitation. 7. Volume overload. Plan: Currently off IV fluids. Repeat IV Lasix 20 mg once this afternoon. Avoid nephrotoxins. Continue to monitor renal function and urine output. Maintain bicarb.
--- NOTE | 2021-12-08 14:03 | P.PN ---
Subjective This is a 71-year-old male with a past medical history of coronary artery disease status post bypass surgery initially 1991 (SELBY-LAD, VG-D1, VG-OM3) and in 2006 (ANISH-LAD, VG-Cx, free ANISH proximally to the vein graft and distally to LAD), dyslipidemia, peripheral vascular disease status post stenting of left subclavian. He was recently hospitalized in August 2021 with a non-STEMI. Cardiac catheterization revealed chronic occlusion of the ostial circumflex. He was transferred to [facility] in [place] and 09/21/2021 underwent PCI of the ostial and diagonal 1 to mid to distal circumflex and PCI of LM/left circumflex/LAD bifurcation. He follows in the office with Dr. Hester. He initially presented to the hospital with complaints of chest discomfort and shortness of breath. EKG on admission revealed old inferior [place] without acute changes. Troponin was negative 3. Echocardiogram was performed which revealed improved EF of 4550%, basal inferior, basal inferiorseptal, mid inferior LV wall hypokinetic, moderate aortic regurgitation, mild mitral tissue, mild tricuspid regurgitation. 12/08/2021 Patient seen at bedside, no acute distress. Patient had symptoms of shortness of breath this morning received 1 dose of IV Lasix 20mg with improvement. Chest x-ray this morning revealed mild edema aren't interstitial pneumonia. We demonstrated small bilateral pleural effusions Blood pressure 90/53, heart rate 86, afebrile, oxygen saturation is 98% on 3 L nasal cannula Is currently maintained on aspirin 81 mg daily, atorvastatin 40 mg nightly, Plavix 75 mg daily, Imdur 30 mg twice a day, metoprolol titrate 25 mg twice a day. IV Lasix 20 mg to be given later today. Labs, sodium 137, potassium 4.9, BUN 29, serum creatinine 1.5, magnesium 2.0, proBNP 3500 GENERAL: Well-appearing, well-nourished and in no acute distress. NECK: Supple without JVD or thyromegaly. LUNGS: Breath sounds diminished to auscultation bilaterally. Respiration equal and unlabored. No wheezes, rales or rhonchi. HEART: Regular rate and rhythm systolic ejection murmur no rubs or gallops. S1 and S2 heard. EXTREMITIES: Normal range of motion, no edema. No clubbing or cyanosis. Peripheral pulses intact. ASSESSMENT Chronic heart failure with preserved ejection fraction, intermediate with EF 45- 50% Acute Kidney Injury COPD Chest pain, atypical acute coronary syndrome has been ruled out Coronary artery disease with prior CABG in 1991 and 2006 and recent PCI at [facility] on September 21, 2021 Hypotension Peripheral vascular disease Dyslipidemia PLAN IV Lasix 20mg today, monitor renal function and electrolytes Unable to add on additional heart failure regimen medications due to hypotension Continue present medical therapy Further recommendations based on clinical course Nurse Practitioner note has been reviewed, I agree with a documented findings and plan of care. Patient was seen and examined. Objective - Vital Signs Vital signs: Vital Signs Temp 97.9 F 12/08/21 11:50 Pulse 86 12/08/21 13:20 Resp 18 12/08/21 13:20 BP 90/53 12/08/21 11:50 Pulse Ox 98 12/08/21 11:50 Intake & Output 12/07/21 12/08/21 12/08/21 18:59 06:59 18:59 Intake Total 240 480 570 Output Total 600 550 825 Balance -360 -70 -255 Intake: Oral 240 480 570 Output: Urine 600 550 825 Other: Voiding Method Urinal Urinal Urinal # Voids 1 - Labs CBC & Chem 7: 12/08/21 05:43 12/08/21 05:43 Labs: Abnormal Lab Results - Last 24 Hours (Table) 12/07/21 12/07/21 12/08/21 Range/Units 14:20 14:20 05:43 WBC (3.8-10.6) k/uL RBC (4.30-5.90) m/uL Hgb (13.0-17.5) gm/dL Hct (39.0-53.0) % MCHC (31.0-37.0) g/dL Eosinophils # (0-0.7) k/uL Chloride 111 H (98-107) mmol/L Carbon Dioxide 18 L (22-30) mmol/L BUN 29 H (9-20) mg/dL Creatinine 1.51 H 1.56 H (0.66-1.25) mg/dL Glucose 110 H (74-99) mg/dL Hemoglobin A1c 7.2 H (0.0-6.0) % 12/08/21 Range/Units 05:43 WBC 11.0 H (3.8-10.6) k/uL RBC 3.80 L (4.30-5.90) m/uL Hgb 11.2 L (13.0-17.5) gm/dL Hct 36.4 L (39.0-53.0) % MCHC 30.9 L (31.0-37.0) g/dL Eosinophils # 1.3 H (0-0.7) k/uL Chloride (98-107) mmol/L Carbon Dioxide (22-30) mmol/L BUN (9-20) mg/dL Creatinine (0.66-1.25) mg/dL Glucose (74-99) mg/dL Hemoglobin A1c (0.0-6.0) % Microbiology - Last 24 Hours (Table) 12/08/21 02:13 Sputum Culture - Preliminary Sputum
[2021-12-08] MEDS: FORMOTEROL FUMARATE 20 MCG/2 ML NEBU INHALATION SCH ×2 (16:40→20:12)
--- NOTE | 2021-12-08 20:25 | P.PN ---
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 Patient rather significant cardiac history. Patient had a previous coronary bypass and 1991 and 2006. Ulcers had previous stenting done. Patient was attempted for hospital 2 weeks ago. Underwent coronary stenting there. It appears patient has a chronically occluded circumflex. Patient had been smoking up until a few weeks ago. Not very active. Patient yesterday developed chest pressure going across the chest. Shortness of breath. Some perspiration. Chest tightness. Not relieved with nitro. Patient presented to the ER. Admitted with unstable angina. Troponin was negative. Placed on IV heparin. Patient does follow with model maker plaster Dr. SADIE Hester. Patient hasn't been very active. Patient also has been losing weight. Patient also in significant stress as his is undergoing treatment for stomach cancer. And his eldest son also recently had a stroke. Patient still having pain when I saw him on the floor. IV heparin. Added Imdur 30 mg a evening. Admitted with unstable angina, acute kidney injury,. IV fluids. Nitrates added. IV heparin drip. December 07: Chest pain is better. Some shortness of breath. IV fluids. Blood pressure is running low. Nephrology consulted. Care was discussed with the patient and his son kareem at bedside. Patient wants to be a DO NOT RESUSCITATE. IV heparin was discontinued this morning. Add bronchodilators inhaled steroids. December 08: Intermittent chest pain present. Feels better with bronchodilators. Inhaled steroids. IV Lasix dose given this morning by pulmonary and repeat dose in the afternoon. Patient discuss his CODE STATUS again today. Doesn't wish to go on the ventilator if required not prolonged. Code is being changed to full code. He'll convey this to his son. Patient did explain that he has a penile implant that starts inflating spontaneously. He has looked at several avenues before. He'll need a significant surgery with the urostomy which at this point is not a good idea. He does take Crossett for that purpose. Still has shortness of breath. Active Medications Hydrocodone Bitart/Acetaminophen (Hydrocodone/Apap 10-325mg 1 Each Tab) 1 each PO QID PRN PRN Reason: Pain Last Admin: 12/08/21 18:06 Dose: 1 each Documented by: Albuterol Sulfate (Albuterol Nebulized 2.5 Mg/3 Ml) 2.5 mg INHALATION RT-QID PRN PRN Reason: Shortness Of Breath Albuterol/Ipratropium (Ipratropium-Albuterol 3 Ml Neb) 3 ml INHALATION RT-QID [facility] Last Admin: 12/08/21 20:12 Dose: 3 ml Documented by: Aspirin (Aspirin 81 Mg) 81 mg PO DAILY [facility] Last Admin: 12/08/21 08:46 Dose: 81 mg Documented by: Atorvastatin Calcium (Atorvastatin 40 Mg Tab) 40 mg PO DAILY [facility] Last Admin: 12/08/21 08:51 Dose: Not Given Documented by: Budesonide (Budesonide 1 Mg/2 Ml Nebu) 1 mg INHALATION RT-BID [facility] Last Admin: 12/08/21 20:12 Dose: 1 mg Documented by: Clopidogrel Bisulfate (Clopidogrel 75 Mg Tab) 75 mg PO DAILY [facility] Last Admin: 12/08/21 08:46 Dose: 75 mg Documented by: Formoterol Fumarate (Formoterol Fumarate 20 Mcg/2 Ml Nebu) 20 mcg INHALATION RT-BID [facility] Last Admin: 12/08/21 20:12 Dose: 20 mcg Documented by: Heparin Sodium (Porcine) (Heparin Sodium,Porcine/Pf 5,000 Unit/0.5 Ml Syringe) 5,000 unit SQ Q12HR [facility] Last Admin: 12/08/21 08:51 Dose: Not Given Documented by: Isosorbide Mononitrate (Isosorbide Mononitrate Er 30 Mg Tab.Er.24h) 30 mg PO BID [facility] Last Admin: 12/08/21 20:03 Dose: 30 mg Documented by: Melatonin (Melatonin 5 Mg Tablet) 10 mg PO HS PRN PRN Reason: imsomnia Last Admin: 12/08/21 00:54 Dose: 10 mg Documented by: Metoprolol Tartrate (Metoprolol Tartrate 12.5 Mg Tab) 12.5 mg PO BID [facility] Last Admin: 12/08/21 20:03 Dose: 12.5 mg Documented by: Morphine Sulfate (Morphine Sulfate 2 Mg/Ml Syringe) 2 mg IVP Q3HR PRN PRN Reason: Pain/Discomfort Last Admin: 12/08/21 20:02 Dose: 2 mg Documented by: Naloxone HCl (Naloxone 0.4 Mg/Ml 1 Ml Vial) 0.2 mg IV Q2M PRN PRN Reason: Opioid Reversal Pantoprazole Sodium (Pantoprazole 40 Mg Tablet) 40 mg PO DAILY [facility] Last Admin: 12/08/21 08:46 Dose: 40 mg Documented by: Sodium Bicarbonate (Sodium Bicarbonate Tab 650 Mg Tab) 650 mg PO TID [facility] Last Admin: 12/08/21 13:02 Dose: Not Given Documented by: Tamsulosin HCl (Tamsulosin 0.4 Mg Cap.Er.24h) 0.4 mg PO DAILY [facility] Last Admin: 12/08/21 08:46 Dose: 0.4 mg Documented by: Past medical history to include: CAD, COPD, trachea stenosis, Social history: 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 Family history: CAD Physical examination: VITAL SIGNS: 97.8, 92, 18, 116/58, 97% on 3 L GENERAL: Reclining in bed, some shortness of breath. Mild anxiety. EYES: Pupils equal. Conjunctiva normal. HEENT: External appearance of nose and ears normal, oral cavity grossly normal. NECK: JVD not raised; masses not palpable. HEART: First and second heart sounds are normal; no edema. LUNGS: Respiratory rate increased; decreased breath sounds. Some basal crackles ABDOMEN: Soft, nontender, liver spleen not palpable, no masses palpable. PSYCH: Alert and oriented x3; mood and affect anxious. MUSCULOSKELETAL:No Clubbing/cyanosis;muscles-grossly intact. Decreased Muscle muscle mass and subcutaneous fat INVESTIGATIONS, reviewed in the clinical context: December 08: White count 11 hemoglobin 11.2 potassium 4.9 BUN 29 creatinine 1.56 carb 18 December 07: White count 12.8 hemoglobin 10.6 platelets 277 potassium 4.4 BUN 33 creatinine 1.64 bicarb 20 Computed tomography scan abdomen: Findings delineated to penile implant. 2-D echo: EF 45-50%. Wall motion abnormalities. Moderate aortic regurgitation. White count 11.6 hemoglobin 13.9 platelets 308 potassium 4.8 BUN 35 creatinine 1.71 Troponin I less than 0.012 proBNP 3150 Coronavirus [PCR]: Not detected EKG tracing personally reviewed by me-normal sinus rhythm. Subtle ST segment changes. Chest x-ray film personally reviewed by me-possibly chronic changes Previous labs: Creatinine 0.9 for August 2021 Assessment and plan: -Unstable angina in a patient with known extensive cardiac disease.: Slow to respond Troponin negative. Imdur 30 mg twice a day IV heparin-discontinued. -CAD with a prior history of bypass in 1991 and 2006. Also stenting. Chronically occluded circumflex. Recent intervention successful at [facility] Aspirin, Lopressor Lipitor, Plavix -Acute congestive heart failure from systolic dysfunction EF 45% IV Lasix given. IV fluids discontinued -BPH Flomax 0.4 mg daily -Hypotension possibly from decreased oral intake prerenal IV fluids. -GERD Protonix 20 mg daily -Acute COPD exacerbation in a previous smoker DuoNeb. Inhaled steroids -Chronic muscular skeletal pain Crossett 10 one tablet 4 times a day when necessary -Metabolic acidosis from CK D Sodium bicarbonate -Acute on chronic medical debility Fall precautions -Mild protein calorie malnutrition from decreased oral intake Ensure -IV heparin monitoring: Discontinued Follow PTT -Acute kidney Injury. Note patient recently had intervention at an different hospital. This could be related to the cardiac catheterization. IV fluids given. Follow labs. -Failed penile implant pump, with spontaneous inflation causing recurrent pain Surgical correction currently not an option because of his medical condition. Crossett -Full code. Per patient request IV Lasix. Add long-acting beta agonist. Continue Crossett. Imdur. Lopressor. IV Lasix. Total time spent today about 45 minutes with over 25 minutes of discussion
[2021-12-08] MEDS ORDERED: MORPHINE SULFATE 2 MG/ML SYRINGE ONE (23:15)
[2021-12-09] MEDS: HYDROcodone/APAP 10-325MG 1 EACH TAB PO PRN ×3 (00:05→12:25)
[2021-12-09] MEDS: SODIUM BICARBONATE TAB 650 MG TAB PO SCH ×3 (06:03→10:54)
[2021-12-09] MEDS: HEPARIN SODIUM,PORCINE/PF 5,000 UNIT/0.5 ML SYRINGE SQ SCH ×2 (06:03→09:16)
[2021-12-09] MEDS: MORPHINE SULFATE 2 MG/ML SYRINGE IVP PRN ×3 (07:14→15:22)
[2021-12-09 08:37] LABS: Basophils # (A) 0.1 k/uL (0-0.2); Basophils % (A) 1 %; Eosinophils # (A) 1.2 k/uL (0-0.7); Eosinophils % (A) 11 %; HCT 34.2 % (39.0-53.0); HGB 10.7 gm/dL (13.0-17.5); Hypochromasia Moderate; Lymphocytes # (A) 2.4 k/uL (1.0-4.8); Lymphocytes % (A) 23 %; MCH 30.4 pg (25.0-35.0); MCHC 31.3 g/dL (31.0-37.0); MCV 96.9 fL (80.0-100.0); Mean Platelet Volume 7.9; Monocytes # (A) 0.8 k/uL (0-1.0); Monocytes % (A) 8 %; Neutrophils # (A) 5.9 k/uL (1.3-7.7); Neutrophils % (A) 55 %; Platelet Count 267 k/uL (150-450); RBC 3.53 m/uL (4.30-5.90); RDW 14.9 % (11.5-15.5); WBC 10.8 k/uL (3.8-10.6)
[2021-12-09 08:50] LABS: Calcium 9.1 mg/dL (8.4-10.2); Magnesium 2.1 mg/dL (1.6-2.3); Potassium 4.4 mmol/L (3.5-5.1)
[2021-12-09] MEDS: FORMOTEROL FUMARATE 20 MCG/2 ML NEBU INHALATION SCH (08:51)
[2021-12-09] MEDS: BUDESONIDE 1 MG/2 ML NEBU INHALATION SCH (08:51)
[2021-12-09] MEDS: IPRATROPIUM-ALBUTEROL 3 ML NEB INHALATION SCH ×2 (08:51→11:41)
[2021-12-09] MEDS: ATORVASTATIN 40 MG TAB PO SCH (09:16)
[2021-12-09] MEDS: ISOSORBIDE MONONITRATE ER 30 MG TAB.ER.24H PO SCH (09:24)
[2021-12-09] MEDS: PANTOPRAZOLE 40 MG TABLET PO SCH (09:25)
[2021-12-09] MEDS: METOPROLOL TARTRATE 12.5 MG TAB PO SCH (09:25)
[2021-12-09] MEDS: TAMSULOSIN 0.4 MG CAP.ER.24H PO SCH (09:25)
[2021-12-09] MEDS: ASPIRIN 81 MG PO SCH (09:25)
[2021-12-09] MEDS: CLOPIDOGREL 75 MG TAB PO SCH (09:25)
--- NOTE | 2021-12-09 09:32 | P.PN ---
Subjective Patient is seen in follow-up for acute kidney injury. Renal function was from diuresis. Dyspnea improved. Good urine output. Currently on 3 L is a cannula. Blood pressures on the lower side. Vital signs are stable. General: On nasal cannula. HEENT: Head exam is unremarkable. LUNGS: Breath sounds decreased. HEART: Rate and Rhythm are regular. ABDOMEN: Soft, no distention. EXTREMITITES: No edema. Objective - Vital Signs Vital signs: Vital Signs Temp 97.4 F L 12/09/21 04:00 Pulse 85 12/09/21 09:12 Resp 18 12/09/21 04:00 BP 89/48 12/09/21 04:00 Pulse Ox 93 L 12/09/21 04:00 Intake & Output 12/08/21 12/09/21 12/09/21 18:59 06:59 18:59 Intake Total 570 360 Output Total 1025 1550 Balance -455 -1550 360 Intake: Oral 570 360 Output: Urine 1025 1550 Other: Voiding Method Urinal Urinal # Voids 1 - Labs CBC & Chem 7: 12/09/21 07:58 12/09/21 07:58 Labs: Abnormal Lab Results - Last 24 Hours (Table) 12/09/21 12/09/21 Range/Units 07:58 07:58 WBC 10.8 H (3.8-10.6) k/uL RBC 3.53 L (4.30-5.90) m/uL Hgb 10.7 L (13.0-17.5) gm/dL Hct 34.2 L (39.0-53.0) % Eosinophils # 1.2 H (0-0.7) k/uL Sodium 136 L (137-145) mmol/L Carbon Dioxide 20 L (22-30) mmol/L BUN 35 H (9-20) mg/dL Creatinine 1.88 H (0.66-1.25) mg/dL Glucose 151 H (74-99) mg/dL Microbiology - Last 24 Hours (Table) 12/08/21 02:13 Gram Stain - Preliminary Sputum Sputum Culture - Preliminary Assessment and Plan Plan: Assessment: 1. Acute kidney injury secondary to ATN versus chronic kidney disease. Creatinine in August 2021 was near 1. Renal function worse from diuresis. Creatinine 1.88 today. No hydronephrosis noted on kidney ultrasound. UA benign. 2. Chest pain. Cardiology following. 3. Coronary artery disease status post cardiac stenting October 2021. 4. Metabolic acidosis secondary to acute kidney injury and IV fluids. On oral bicarb. Better. 5. Bladder mass. Patient states he's aware and was scheduled to have CT of the abdomen and pelvis done outpatient. CT of the pelvis done this admission showed no urinary bladder abnormality. 6. Acute systolic CHF with ejection fraction of 40-45% with moderate aortic regurgitation. 7. Volume overload. Improved with diuresis. Plan: Hold off on diuretics today. Avoid nephrotoxins. Continue to monitor renal function and urine output. Add midodrine.
[2021-12-09 12:03] VITALS: BP 103/53; PULSE 73; TEMP 97.8
[2021-12-09] MEDS ORDERED: MIDODRINE 5 MG TAB PO SCH (12:30)
--- NOTE | 2021-12-09 13:33 | XR ---
EXAMINATION TYPE: XR chest 1V portable DATE OF EXAM: 12/09/2021 COMPARISON: 12/08/2021 HISTORY: Cough TECHNIQUE: Single frontal view of the chest is obtained. FINDINGS: A diffuse interstitial pattern with bilateral consolidation and small effusion. Postoperat nat change. No pneumothorax. Arthropathy of the shoulders. Pleural thickening along the right lateral chest wall appears similar to the prior exam. Could be related to loculated fluid. IMPRESSION: 1. Stable x-ray demonstrating bilateral infiltrate suspected pleural effusion with underlying COPD an d chronic interstitial lung disease.
--- NOTE | 2021-12-09 13:37 | P.PN ---
Subjective This is a 71-year-old male with a past medical history of coronary artery disease status post bypass surgery initially 1991 (SELBY-LAD, VG-D1, VG-OM3) and in 2006 (ANISH-LAD, VG-Cx, free ANISH proximally to the vein graft and distally to LAD), dyslipidemia, peripheral vascular disease status post stenting of left subclavian. He was recently hospitalized in August 2021 with a non-STEMI. Cardiac catheterization revealed chronic occlusion of the ostial circumflex. He was transferred to [facility] in [place] and 09/21/2021 underwent PCI of the ostial and diagonal 1 to mid to distal circumflex and PCI of LM/left circumflex/LAD bifurcation. He follows in the office with Dr. Hester. He initially presented to the hospital with complaints of chest discomfort and shortness of breath. EKG on admission revealed old inferior [place] without acute changes. Troponin was negative 3. Echocardiogram was performed which revealed improved EF of 4550%, basal inferior, basal inferiorseptal, mid inferior LV wall hypokinetic, moderate aortic regurgitation, mild mitral tissue, mild tricuspid regurgitation. 12/09/21 Patient seen at bedside, no acute distress. He continues to have atypical chest pain and receiving IV morphine with some relief. Patient wanting to go home. Chest x-ray this morning revealed stable x-ray demonstrating bilateral infiltrates suspected pleural effusion with underlying COPD and chronic interstitial lung disease Blood pressure 153, heart rate 73, afebrile, oxygen saturation is 98% on 2 L nasal cannula Is currently maintained on aspirin 81 mg daily, atorvastatin 40 mg nightly, Plavix 75 mg daily, Imdur 30 mg twice a day, metoprolol tartrate 25 mg twice a day. Labs, sodium 136, potassium 4.4, BUN 35, serum creatinine 1.88 GENERAL: Well-appearing, well-nourished and in no acute distress. NECK: Supple without JVD or thyromegaly. LUNGS: Breath sounds diminished to auscultation bilaterally. Respiration equal and unlabored. No wheezes, rales or rhonchi. HEART: Regular rate and rhythm systolic ejection murmur no rubs or gallops. S1 and S2 heard. EXTREMITIES: Normal range of motion, no edema. No clubbing or cyanosis. Peripheral pulses intact. ASSESSMENT Chronic heart failure with preserved ejection fraction, intermediate with EF 45- 50% Acute Kidney Injury, likely related to contrast COPD Chest pain, atypical acute coronary syndrome has been ruled out Coronary artery disease with prior CABG in 1991 and 2006 and recent PCI at [facility] on September 21, 2021 Hypotension Peripheral vascular disease Dyslipidemia PLAN Hold off on diuretics Unable to add on additional heart failure regimen medications due to hypotension From a cardiology perspective, no further treatment or changes inpatient. Patient may be discharged today and follow up in the office with Dr. Sosa Nurse Practitioner note has been reviewed, I agree with a documented findings and plan of care. Patient was seen and examined. Objective - Vital Signs Vital signs: Vital Signs Temp 97.8 F 12/09/21 11:00 Pulse 73 12/09/21 11:00 Resp 18 12/09/21 11:00 BP 103/53 12/09/21 11:00 Pulse Ox 98 12/09/21 11:00 Intake & Output 12/08/21 12/09/21 12/09/21 18:59 06:59 18:59 Intake Total 570 620 Output Total 1025 1550 150 Balance -455 -1550 470 Intake: Oral 570 620 Output: Urine 1025 1550 150 Other: Voiding Method Urinal Urinal Urinal # Voids 1 - Labs CBC & Chem 7: 12/09/21 07:58 12/09/21 07:58 Labs: Abnormal Lab Results - Last 24 Hours (Table) 12/09/21 12/09/21 Range/Units 07:58 07:58 WBC 10.8 H (3.8-10.6) k/uL RBC 3.53 L (4.30-5.90) m/uL Hgb 10.7 L (13.0-17.5) gm/dL Hct 34.2 L (39.0-53.0) % Eosinophils # 1.2 H (0-0.7) k/uL Sodium 136 L (137-145) mmol/L Carbon Dioxide 20 L (22-30) mmol/L BUN 35 H (9-20) mg/dL Creatinine 1.88 H (0.66-1.25) mg/dL Glucose 151 H (74-99) mg/dL Microbiology - Last 24 Hours (Table) 12/08/21 02:13 Gram Stain - Preliminary Sputum Sputum Culture - Preliminary
--- NOTE | 2021-12-09 22:10 | P.DS ---
Providers Date of admission: 12/08/21 10:08 Expected date of discharge: 12/09/21 Attending physician: Donavon Mccallum Consults: 12/06/21 18:08 Consult Physician Urgent Consulting Provider: [facility] Consult Reason/Comments: acute chest pain, hx ascad Do you want consulting provider notified?: Yes 12/07/21 07:57 Consult Physician Routine Consulting Provider: Luann Chandra Consult Reason/Comments: ERIKA Do you want consulting provider notified?: Yes 12/07/21 15:23 Consult Physician Routine Consulting Provider: Leonardo Castillo Consult Reason/Comments: ERIKA Do you want consulting provider notified?: Yes Primary care physician: Jelly Onofre MD Hospital Course: Chief Complaint: Chest pain History of presenting complaint 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 Patient rather significant cardiac history. Patient had a previous coronary bypass and 1991 and 2006. Ulcers had previous stenting done. Patient was attempted for hospital 2 weeks ago. Underwent coronary stenting there. It appears patient has a chronically occluded circumflex. Patient had been smoking up until a few weeks ago. Not very active. Patient yesterday developed chest pressure going across the chest. Shortness of breath. Some perspiration. Chest tightness. Not relieved with nitro. Patient presented to the ER. Admitted with unstable angina. Troponin was negative. Placed on IV heparin. Patient does follow with sales enablement consultant Dr. SADIE Hester. Patient hasn't been very active. Patient also has been losing weight. Patient also in significant stress as his is undergoing treatment for stomach cancer. And his eldest son also recently had a stroke. Patient still having pain I saw him on the floor. IV heparin. Added Imdur 30 mg a evening. Admitted with unstable angina kidney injury,. IV fluids. Nitrates added. IV heparin drip. December 07: Chest pain is better. Some shortness of breath. IV fluids. Blood pressure is running low. Nephrology consulted. Care was discussed with the patient and his son kareem at bedside. Patient wants to be a DO NOT RESUSCITATE. IV heparin was discontinued this morning. Add bronchodilators inhaled steroids. December 08: Intermittent chest pain present. Feels better with bronchodilators. Inhaled steroids. IV Lasix dose given this morning by pulmonary and repeat dose in the afternoon. Patient discuss his CODE STATUS again today. Doesn't wish to go on the ventilator if required not prolonged. Code is being changed to full code. He'll convey this to his son. Patient did explain that he has a penile implant that starts inflating spontaneously. He has looked at several avenues before. He'll need a significant surgery with the urostomy which at this point is not a good idea. He does take Universal for that purpose. Still has shortness of breath. December 09: Breathing better. Tired. Discussed with sales enablement consultant is Dr. Summers. Options are limited. Spoke to the patient at length. Understands guarded prognosis. He has bronchodilators at home. He'll follow-up with pulley mortiser operator Dr. Luis Roper. He also follows up with Dr. becerra for pain medications. We'll prescribe some Universal tablets for next few days, until further point review Dr. Becerra. Told the nurse to perfect serve Dr. Becerra. Discussed fluid restriction. Hold off Lasix. 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 Family history: CAD Physical examination: VITAL SIGNS: 97.8, 73, 18, 103/53, 98% on 2 L GENERAL: Reclining in bed, Mild anxiety. EYES: Pupils equal. Conjunctiva normal. HEENT: External appearance of nose and ears normal, oral cavity grossly normal. NECK: JVD not raised; masses not palpable. HEART: First and second heart sounds are normal; no edema. LUNGS: Respiratory rate increased; decreased breath sounds. ABDOMEN: Soft, nontender, liver spleen not palpable, no masses palpable. PSYCH: Alert and oriented x3; mood and affect anxious. MUSCULOSKELETAL:No Clubbing/cyanosis;muscles-grossly intact. Decreased Muscle muscle mass and subcutaneous fat INVESTIGATIONS, reviewed in the clinical context: December 09: White count 10.8 hemoglobin 10.7 potassium 4.4 BUN 35 creatinine 1.8 date December 08: White count 11 hemoglobin 11.2 potassium 4.9 BUN 29 creatinine 1.56 carb 18 December 07: White count 12.8 hemoglobin 10.6 platelets 277 potassium 4.4 BUN 33 creatinine 1.64 bicarb 20 Computed tomography scan abdomen: Findings delineated to penile implant. 2-D echo: EF 45-50%. Wall motion abnormalities. Moderate aortic regurgitation. White count 11.6 hemoglobin 13.9 platelets 308 potassium 4.8 BUN 35 creatinine 1.71 Troponin I less than 0.012 proBNP 3150 Coronavirus [PCR]: Not detected EKG tracing personally reviewed by me-normal sinus rhythm. Subtle ST segment changes. Chest x-ray film personally reviewed by me-possibly chronic changes Previous labs: Creatinine 0.9 for August 2021 Assessment and plan: -Unstable angina in a patient with known extensive cardiac disease. Troponin negative. Imdur 30 mg twice a day IV heparin-discontinued. -CAD with a prior history of bypass in 1991 and 2006. Also stenting. Chr onically occluded circumflex. Recent intervention successful at [facility] Aspirin, Lopressor Lipitor, Plavix -Acute congestive heart failure from systolic dysfunction EF 45% IV Lasix given. IV fluids discontinued. Fluid restriction -BPH Flomax 0.4 mg daily -Hypotension possibly from decreased oral intake prerenal IV fluids. -GERD Protonix 20 mg daily -Acute COPD exacerbation in a previous smoker DuoNeb. Inhaled steroids. Patient follow-up with Dr. Ayden Martínez -Chronic muscular skeletal pain. 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 Patient follows with pain specialist Dr. Becerra. -Metabolic acidosis from CK D Sodium bicarbonate -Acute on chronic medical debility Fall precautions -Mild protein calorie malnutrition from decreased oral intake Ensure -IV heparin monitoring: Discontinued Follow PTT -Acute kidney Injury. Note patient recently had intervention at an different hospital. This could be related to the cardiac catheterization. IV fluids given. Follow labs. -Failed penile implant pump, with spontaneous inflation causing recurrent pain Surgical correction currently not an option because of his medical condition. Universal -Full code. Per patient request Disposition: Home Plan - Discharge Summary Discharge Rx Participant: Yes New Discharge Prescriptions: New Isosorbide Mononitrate ER [Imdur] 60 mg PO DAILY #30 tab Atorvastatin [Lipitor] 40 mg PO DAILY #30 tab Midodrine [ProAmatine] 5 mg PO AC-TID #90 tab Ipratropium-Albuterol Nebulize [Duoneb 0.5 mg-3 mg/3 ml Soln] 3 ml INHALATION RT-QID ml Metoprolol Tartrate [Lopressor] 12.5 mg PO BID #60 tab Budesonide [Pulmicort] 1 mg INHALATION RT-BID ml Sodium Bicarbonate Tab 650 mg PO TID #60 tab Continue Aspirin 81 mg PO DAILY Tamsulosin [Flomax] 0.4 mg PO DAILY Clopidogrel [Plavix] 75 mg PO DAILY Pantoprazole Sodium [Protonix] 20 mg PO DAILY Albuterol Inhaler [Ventolin Hfa Inhaler] 2 puff INHALATION RT-QID PRN PRN Reason: Shortness Of Breath HYDROcodone/APAP 10-325MG [Universal 10-325] 1 tab PO QID PRN #30 tab PRN Reason: Pain Discontinued atenoloL [Tenormin] 25 mg PO DAILY lisinopriL [Zestril] 20 mg PO DAILY Isosorbide Mononitrate ER [Imdur] 30 mg PO DAILY Discharge Medication List Aspirin 81 mg PO DAILY 07/09/15 [History] Pantoprazole Sodium [Protonix] 20 mg PO DAILY 09/18/21 [History] Tamsulosin [Flomax] 0.4 mg PO DAILY 09/18/21 [History] Albuterol Inhaler [Ventolin Hfa Inhaler] 2 puff INHALATION RT-QID PRN 12/06/21 [History] Clopidogrel [Plavix] 75 mg PO DAILY 12/06/21 [History] Atorvastatin [Lipitor] 40 mg PO DAILY #30 tab 12/09/21 [Rx] Budesonide [Pulmicort] 1 mg INHALATION RT-BID ml 12/09/21 [Rx] HYDROcodone/APAP 10-325MG [Universal 10-325] 1 tab PO QID PRN #30 tab 12/09/21 [Rx] Ipratropium-Albuterol Nebulize [Duoneb 0.5 mg-3 mg/3 ml Soln] 3 ml INHALATION RT-QID ml 12/09/21 [Rx] Isosorbide Mononitrate ER [Imdur] 60 mg PO DAILY #30 tab 12/09/21 [Rx] Metoprolol Tartrate [Lopressor] 12.5 mg PO BID #60 tab 12/09/21 [Rx] Midodrine [ProAmatine] 5 mg PO AC-TID #90 tab 12/09/21 [Rx] Sodium Bicarbonate Tab 650 mg PO TID #60 tab 12/09/21 [Rx] Follow up Appointment(s)/Referral(s): Maskoni,Bashar, MD [Primary Care Provider] - 1-2 days (Please call to make appt.) [facility] [[facility]FF] - Estephanie Sosa MD [STAFF PHYSICIAN] - 12/24/21 3:15 pm Alhaji Hester MD [STAFF PHYSICIAN] - 12/16/21 11:30 am Patient Instructions/Handouts: Radiological Ionic Contrast Media (By injection), Angina (ED), Acute Kidney Injury (DC) Activity/Diet/Wound Care/Special Instructions: no other prescriptions Discharge Disposition: HOME WITH HOME HEALTH SERVICES
== END 2021-12-09 15:56 | disposition home health service (06) | DRG 302 ==
LOC: EC 15:50 → 3SCARD 18:13 → OBSVTOIN 12-08 10:08
PROVIDERS: ADMIT Hospitalist; ATTEND Hospitalist
DX: I25.110 Atherosclerotic heart disease of native coronary artery with unstable angina pectoris (principal); I50.43 Acute on chronic combined systolic (congestive) and diastolic (congestive) heart failure; N17.0 Acute kidney failure with tubular necrosis; E44.1 Mild protein-calorie malnutrition; E87.2 Acidosis; J44.1 Chronic obstructive pulmonary disease with (acute) exacerbation; T83.410A Breakdown (mechanical) of implanted penile prosthesis, initial encounter; G89.4 Chronic pain syndrome; E78.5 Hyperlipidemia, unspecified; R53.81 Other malaise; I25.82 Chronic total occlusion of coronary artery; I35.1 Nonrheumatic aortic (valve) insufficiency; I73.9 Peripheral vascular disease, unspecified; J84.10 Pulmonary fibrosis, unspecified; K21.9 Gastro-esophageal reflux disease without esophagitis; N32.9 Bladder disorder, unspecified; Z68.20 Body mass index [BMI] 20.0-20.9, adult; N40.0 Benign prostatic hyperplasia without lower urinary tract symptoms; I25.2 Old myocardial infarction; Z95.1 Presence of aortocoronary bypass graft; Z95.5 Presence of coronary angioplasty implant and graft; Z66 Do not resuscitate; Z79.82 Long term (current) use of aspirin; Z79.899 Other long term (current) drug therapy; Z79.02 Long term (current) use of antithrombotics/antiplatelets; Z82.49 Family history of ischemic heart disease and other diseases of the circulatory system; Z87.891 Personal history of nicotine dependence; Z95.820 Peripheral vascular angioplasty status with implants and grafts
CPT/HCPCS: 36415; 71045; 71046; 72192; 76770; 80048; 80053; 81003; 82565; 83036; 83690; 83735; 83880; 84484; 85025; 85610; 85730; 87070; 87205; 87635; 93005; 93306; 94640; 94760; 96374; 99285

== ENCOUNTER 2021-12-21 07:23 | Inpatient (IN) | payer MEDICARE ==
[2021-12-21] MEDS ORDERED: FUROSEMIDE 10 MG/ML 4 ML VIAL IV STA (07:44)
[2021-12-21] MEDS ORDERED: LORazepam 2 MG/ML INJ IV STA (07:52)
[2021-12-21 07:59] LABS: Basophils # (A) 0.1 k/uL (0-0.2); Basophils % (A) 1 %; Eosinophils # (A) 1.1 k/uL (0-0.7); Eosinophils % (A) 8 %; Hypochromasia Slight; Lymphocytes # (A) 3.4 k/uL (1.0-4.8); Lymphocytes % (A) 24 %; MCH 29.8 pg (25.0-35.0); MCHC 31.1 g/dL (31.0-37.0); Mean Platelet Volume 7.4; Monocytes # (A) 0.7 k/uL (0-1.0); Monocytes % (A) 5 %; Neutrophils # (A) 8.5 k/uL (1.3-7.7); Neutrophils % (A) 60 %; Platelet Count 316 k/uL (150-450); RBC 4.37 m/uL (4.30-5.90); RDW 14.9 % (11.5-15.5)
--- NOTE | 2021-12-21 08:08 | ED ---
General Adult HPI - General Chief complaint: Chest Pain Stated complaint: GOLD Time Seen by Provider: 12/21/21 07:26 Source: patient, EMS Mode of arrival: EMS Limitations: no limitations - History of Present Illness Initial comments: Dictation was produced using [email or web address] dictation software. please excuse any grammatical, word or spelling errors. 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 Patient has extensive history of tobacco use, COPD, coronary artery disease, status post coronary artery stenting and coronary artery bypass grafting performed and 2006 and 1991. He was recently hospitalized for a similar issue 2 weeks ago. He is admitted to the hospital for approximately 3 days before being discharged. This morning upon waking up he was experiencing substernal chest pain and dyspnea. EMS was called. EMS reports that his initial blood pressure was systolic greater than 200 mmHg. He was given sublingual nitroglycerin. Patient states he has substernal chest pain that is nonradiating. Associated with diaphoresis and shortness of breath. Denies any numbness tingling or paresthesias. No coughing. No fever or constitutional symptoms. He went to bed last night feeling fine. Patient has not had any smoking for 4 months. EMS provided patient with a DuoNeb which patient reports helped his symptoms. The ROS documented in this emergency department record has been reviewed and confirmed by me. Those systems with pertinent positive or negative responses have been documented in the HPI. All other systems are other negative and/or noncontributory. PHYSICAL EXAM: General Impression: Alert and oriented x3, dyspneic HEENT: Normocephalic atraumatic, extra-ocular movements intact, pupils equal and reactive to light bilaterally, mucous membranes moist. Cardiovascular: Heart regular rate and rhythm Chest: Three word sentences, diffuse lung crackles Abdomen: abdomen soft, non-tender, non-distended, no organomegaly Musculoskeletal: Pulses present and equal in all extremities, no peripheral edema Motor: no focal deficits noted Neurological: CN II-XII grossly intact, no focal motor or sensory deficits noted Skin: Intact with no visualized rashes Psych: Normal affect and mood ED course: 71-year-old male with extensive history of cardiac abnormalities presents to the emergency department for chest pain or shortness of breath. Vital signs upon arrival are within acceptable limits. Patient had been given sublingual nitro, aspirin and DuoNeb prior to arrival. Patient states his symptoms are improved after those interventions. Plan care bedside ultrasound was performed showing B lines diffusely suggesting pulmonary edema. Given that patient had elevated blood pressure prior to arrival there is concern of hypertensive emergency secondary to heart failure exacerbation. Patient given Lasix and temporarily placed on BiPAP Patient reevaluated at 8:10 AM found to be stable medical condition he is significantly improved clinically. Laboratory evaluation obtained. Mild leukocytosis of 14.0. Coag panel is unremarkable. Metabolic panel shows findings within acceptable limits. Troponin is 0.013, brain natruretic peptide is 3320. Chest x-ray shows de veloping right mid and lower lung field infiltrate currently for pneumonia. Atypical edema she could be considered. Patient not having any respiratory infectious symptoms. He is much improved after a short trial of BiPAP. Patient reevaluated at 8:50 AM Physical medical condition. He is well-appearing. Does complain of some ongoing chest pain. EKG does not reflect any ischemia or infarction. Patient given topical nitroglycerin. Patient be admitted for heart failure exacerbation case is discussed with Dr. Mccallum who is willing to accept patients care. Cardiology consulted. Patient's blood pressure is improved. EKG interpretation: Ventricular rate 97, sinus rhythm, HI interval 184, QRS 102, QTc 441. No HI prolongation, no QTC prolongation, no ST or T-wave changes noted. EKG compared to December 06 2021 showing no changes. Overall, this EKG is unremarkable - Related Data Home Medications Medication Instructions Recorded Confirmed Aspirin 81 mg PO DAILY 07/09/15 12/21/21 Pantoprazole Sodium [Protonix] 20 mg PO DAILY 09/18/21 12/21/21 Tamsulosin [Flomax] 0.4 mg PO DAILY 09/18/21 12/21/21 Albuterol Inhaler [Ventolin Hfa 2 puff INHALATION RT-QID PRN 12/06/21 12/21/21 Inhaler] Clopidogrel [Plavix] 75 mg PO DAILY 12/06/21 12/21/21 Metoprolol Tartrate [Lopressor] 12.5 mg PO BID 12/21/21 12/21/21 Montelukast [Singulair] 10 mg PO HS 12/21/21 12/21/21 Nitroglycerin Sl Tabs [Nitrostat] 0.4 mg SL Q5M PRN 12/21/21 12/21/21 Previous Rx's Medication Instructions Recorded Atorvastatin [Lipitor] 40 mg PO DAILY #30 tab 12/09/21 Budesonide [Pulmicort] 1 mg INHALATION RT-BID ml 12/09/21 HYDROcodone/APAP 10-325MG [[place] 1 tab PO QID PRN #30 tab 12/09/21 10-325] Ipratropium-Albuterol Nebulize 3 ml INHALATION RT-QID ml 12/09/21 [Duoneb 0.5 mg-3 mg/3 ml Soln] Isosorbide Mononitrate ER [Imdur] 60 mg PO DAILY #30 tab 12/09/21 Midodrine [ProAmatine] 5 mg PO AC-TID #90 tab 12/09/21 Sodium Bicarbonate Tab 650 mg PO TID #60 tab 12/09/21 Allergies Allergy/AdvReac Type Severity Reaction Status Date / Time No Known Allergies Allergy Verified 12/21/21 08:36 Review of Systems ROS Statement: Those systems with pertinent positive or pertinent negative responses have been documented in the HPI. ROS Other: All systems not noted in ROS Statement are negative. Past Medical History Past Medical History: Coronary Artery Disease (CAD), Chest Pain / Angina, COPD, Myocardial Infarction ([place]) Additional Past Medical History / Comment(s): hypotension, trachea stenosis Last Myocardial Infarction Date:: 2005 History of Any Multi-Drug Resistant Organisms: None Reported Past Surgical History: Coronary Bypass/CABG, Heart Catheterization With Stent Additional Past Surgical History / Comment(s): CABG x 2, trachea sx 4 cardiac stent, penile implant Past Anesthesia/Blood Transfusion Reactions: No Reported Reaction Date of Last Stent Placement:: 2005 Past Psychological History: No Psychological Hx Reported Smoking Status: Former smoker Past Alcohol Use History: None Reported Past Drug Use History: None Reported - Past Family History Father Family Medical History: Coronary Artery Disease (CAD) Brother(s) Family Medical History: Coronary Artery Disease (CAD) General Exam Limitations: no limitations Course Vital Signs 12/21/21 07:43 Temperature 98 F Pulse Rate 95 Respiratory 18 Rate Blood Pressure 140/70 O2 Sat by Pulse 100 Oximetry Medical Decision Making - Lab Data Result diagrams: 12/21/21 07:30 12/21/21 07:30 Lab Results 12/21/21 12/21/21 12/21/21 Range/Units 07:30 07:30 07:30 WBC 14.0 H (3.8-10.6) k/uL RBC 4.37 (4.30-5.90) m/uL Hgb 13.0 (13.0-17.5) gm/dL Hct 42.0 (39.0-53.0) % MCV 96.0 (80.0-100.0) fL MCH 29.8 (25.0-35.0) pg MCHC 31.1 (31.0-37.0) g/dL RDW 14.9 (11.5-15.5) % Plt Count 316 (150-450) k/uL MPV 7.4 Neutrophils % 60 % Lymphocytes % 24 % Monocytes % 5 % Eosinophils % 8 % Basophils % 1 % Neutrophils # 8.5 H (1.3-7.7) k/uL Lymphocytes # 3.4 (1.0-4.8) k/uL Monocytes # 0.7 (0-1.0) k/uL Eosinophils # 1.1 H (0-0.7) k/uL Basophils # 0.1 (0-0.2) k/uL Hypochromasia Slight PT 10.1 (9.0-12.0) sec INR 0.9 (<1.2) APTT 24.1 (22.0-30.0) sec Sodium 139 (137-145) mmol/L Potassium 4.5 (3.5-5.1) mmol/L Chloride 108 H (98-107) mmol/L Carbon Dioxide 21 L (22-30) mmol/L Anion Gap 10 mmol/L BUN 29 H (9-20) mg/dL Creatinine 1.36 H (0.66-1.25) mg/dL Est GFR (CKD-EPI)AfAm 60 (>60 ml/min/1.73 sqM) Est GFR (CKD-EPI)NonAf 52 (>60 ml/min/1.73 sqM) Glucose 126 H (74-99) mg/dL Calcium 9.3 (8.4-10.2) mg/dL Magnesium 2.1 (1.6-2.3) mg/dL Troponin I (0.000-0.034) ng/mL NT-Pro-B Natriuret Pep pg/mL 12/21/21 12/21/21 Range/Units 07:30 07:30 WBC (3.8-10.6) k/uL RBC (4.30-5.90) m/uL Hgb (13.0-17.5) gm/dL Hct (39.0-53.0) % MCV (80.0-100.0) fL MCH (25.0-35.0) pg MCHC (31.0-37.0) g/dL RDW (11.5-15.5) % Plt Count (150-450) k/uL MPV Neutrophils % % Lymphocytes % % Monocytes % % Eosinophils % % Basophils % % Neutrophils # (1.3-7.7) k/uL Lymphocytes # (1.0-4.8) k/uL Monocytes # (0-1.0) k/uL Eosinophils # (0-0.7) k/uL Basophils # (0-0.2) k/uL Hypochromasia PT (9.0-12.0) sec INR (<1.2) APTT (22.0-30.0) sec Sodium (137-145) mmol/L Potassium (3.5-5.1) mmol/L Chloride (98-107) mmol/L Carbon Dioxide (22-30) mmol/L Anion Gap mmol/L BUN (9-20) mg/dL Creatinine (0.66-1.25) mg/dL Est GFR (CKD-EPI)AfAm (>60 ml/min/1.73 sqM) Est GFR (CKD-EPI)NonAf (>60 ml/min/1.73 sqM) Glucose (74-99) mg/dL Calcium (8.4-10.2) mg/dL Magnesium (1.6-2.3) mg/dL Troponin I 0.013 (0.000-0.034) ng/mL NT-Pro-B Natriuret Pep 3320 pg/mL Critical Care Time Critical Care Time: Yes Total Critical Care Time: 33 Disposition Clinical Impression: Heart failure Disposition: ADMITTED IP TO THIS [facility] Condition: Serious Referrals: Jelly Onofre MD [Primary Care Provider] - 1-2 days
[2021-12-21 08:10] LABS: Calcium 9.3 mg/dL (8.4-10.2); Magnesium 2.1 mg/dL (1.6-2.3); Potassium 4.5 mmol/L (3.5-5.1)
--- NOTE | 2021-12-21 08:11 | XR ---
EXAMINATION TYPE: XR chest 1V portable DATE OF EXAM: 12/21/2021 COMPARISON: 12/09/2021 INDICATION: Difficulty breathing difficulty TECHNIQUE: Single frontal view of the chest is obtained. FINDINGS: The heart size is normal. The pulmonary vasculature is prominent. There is diffuse increased lung markings. There is more focal infiltrates in the right peripheral mid to lower lung field. Sternotomy wires are in the midline. IMPRESSION: 1. Developing right mid and lower lung field infiltrate. Correlate for pneumonia. Atypical edema coul d be considered. Some volume overload may be present.
[2021-12-21 08:14] LABS: INR 0.9 (<1.2); Partial Thromboplastin Time 24.1 sec (22.0-30.0); Prothrombin Time 10.1 sec (9.0-12.0)
[2021-12-21] MEDS ORDERED: MORPHINE SULFATE 4 MG/ML SYRINGE IV STA (08:43)
[2021-12-21] MEDS ORDERED: HEPARIN SODIUM 1,000 UN/ML (10ML VL) IV PRN (08:48)
[2021-12-21] MEDS ORDERED: HEPARIN SODIUM 1,000 UN/ML (10ML VL) IV ONE (08:48)
[2021-12-21] MEDS ORDERED: NITROGLYCERIN OINT 1 INCH/GM PACKET TOPICAL SCH (09:00)
[2021-12-21] MEDS ORDERED: HEPARIN SOD,PORK IN 0.45% NACL 25,000 UNIT in 0.45% NACL 1 250ML.BAG IV SCH (09:00)
[2021-12-21] MEDS: SODIUM CHLORIDE 0.9% 1,000 ML IV SCH (10:40)
[2021-12-21] MEDS ORDERED: NITROGLYCERIN SL TABS 0.4 MG TAB SUBLINGUAL PRN (10:48)
[2021-12-21] MEDS ORDERED: ALBUTEROL NEBULIZED 2.5 MG/3 ML INHALATION PRN (10:48)
[2021-12-21] MEDS ORDERED: METOPROLOL TARTRATE 12.5 MG TAB PO SCH (11:00)
[2021-12-21] MEDS: BUDESONIDE 1 MG/2 ML NEBU INHALATION SCH ×2 (11:09→20:24)
[2021-12-21] MEDS: IPRATROPIUM-ALBUTEROL 3 ML NEB INHALATION SCH ×3 (11:09→20:24)
[2021-12-21] MEDS: METOPROLOL TARTRATE 25 MG TAB PO SCH ×2 (11:43→20:43)
[2021-12-21] MEDS: HYDROcodone/APAP 10-325MG 1 EACH TAB PO PRN ×3 (11:45→23:04)
[2021-12-21] MEDS: PANTOPRAZOLE 40 MG TABLET PO SCH (11:45)
[2021-12-21] MEDS: TAMSULOSIN 0.4 MG CAP.ER.24H PO SCH (11:45)
--- NOTE | 2021-12-21 12:51 | P.CRDCN ---
History of Present Illness Consult date: 12/21/21 History of present illness: HISTORY OF PRESENT ILLNESS: This is a 71-year-old male with a past medical history significant for coronary artery disease status post bypass surgery initially 1991 (SELBY-LAD, VG-D1, VG- OM3) and in 2006 (ANISH-LAD, VG-Cx, free ANISH proximally to the vein graft and distally to LAD), dyslipidemia, peripheral vascular disease status post stenting of left subclavian. He was recently hospitalized in August 2021 with a non- STEMI. Cardiac catheterization revealed chronic occlusion of the ostial circumflex. He was transferred to [facility] in [place] and 09/21/2021 underwent PCI of the ostial and diagonal 1 to mid to distal circumflex and PCI of LM/left circumflex/LAD bifurcation. Patient was recently hospitalized earlier this month for CHF. Patient follows in the office with Dr. Hester. We have been asked to see the patient in consultation for CHF. Patient examined at the bedside. Patient presented back to the hospital today with shortness of breath. Patient states he took his pulse ox at home and it was 85%. He also reports his heart rate was 142. Patient also reports having some chest pressure along with shortness of breath this morning. Patient states when EMS arrived they took his blood pressure and was found to be 200/130. The patient was hypotensive during his previous hospitalization and was prescribed Midodine, however the patient states he has not taken any doses of this since being discharged from the hospital. * EKG reveals sinus mechanism with PVCs * Chest xray developing right mid and lower lung field infiltrates. Correlate for pneumonia. Atypical edema could be considered. Some volume overload may be present. * Laboratory data: WBC 14.0. Hemoglobin 13.0. Platelet count 316. Sodium 139. Potassium 4.5. BUN 29. Creatinine 1.36. Magnesium 2.1. Troponin negative 1. ProBNP 3320. * Current home cardiac medications include Midodrine 5 mg 3 times a day, metopro lol tartrate 12.5 mg twice a day, Imdur 60 mg daily, Plavix 75 mg daily, Lipitor 40 mg daily, aspirin 81 mg daily * Most recent echocardiogram obtained November 2021 ejection fraction 45-50%, basal inferior LV wall hypokinesis, basal inferior septal LV wall hypokinesis, mid inferior LV wall hypokinesis, moderate aortic regurgitation, mild MR, mild TR REVIEW OF SYSTEMS: At the time of my exam: CONSTITUTIONAL: Denies fever or chills. HEENT: Denies blurred vision, vision changes, or eye pain. Denies hemoptysis CARDIOVASCULAR: Denies chest pain. Denies orthopnea. Denies PND. Denies palpitations RESPIRATORY: + shortness of breath. GASTROINTESTINAL: Denies abdominal pain. Denies nausea or vomiting. HEMATOLOGIC: Denies bleeding disorders. GENITOURINARY: Denies any blood in urine. SKIN: Denies pruitis. Denies rash. PHYSICAL EXAM: VITAL SIGNS: Reviewed. GENERAL: Well-developed in no acute distress. HEENT: Head is normocephalic. Pupils are equal, round. Sclerae anicteric. Mucous membranes of the mouth are moist. Neck supple. No JVD or thyromegaly LUNGS: Respirations even and unlabored. Lungs diminished with bilateral crackles. HEART: Regular rate and rhythm. S1 and S2 heard. Systolic murmur noted. ABDOMEN: Soft. Nondistended. Nontender. EXTREMITIES: Normal range of motion. No clubbing or cyanosis. Peripheral pulses intact. Trace lower extremity edema NEUROLOGIC: Awake and alert. Oriented x 3. ASSESSMENT: Shortness of breath Chest pain, troponin negative x 1 Acute on chronic heart failure with preserved ejection fraction, intermediate with EF 45-50% Acute Kidney Injury Coronary artery disease with prior CABG in 1991 and 2006 and recent PCI at [facility] on September 21, 2021 Hypotension Peripheral vascular disease Dyslipidemia PLAN: No need to repeat echocardiogram as this was performed earlier this month Trend troponin levels Continue IV heparin Decrease Lasix to 40 mg IV daily Monitor kidney function Resume home cardiac medications Increase metoprolol to 25 mg BID. Will change to metoprolol succinate 25 mg daily starting tomorrow Resume Imdur at a decreased dose of 30 mg daily Do not resume Midodrine at this time Continue to monitor blood pressures. Will add lisinopril 5 mg tomorrow if patient able to tolerate Further recommendations pending patient's course Nurse practitioner note has been reviewed by physician. Signing provider agrees with the documented findings, assessment, and plan of care. 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 Last Myocardial Infarction Date:: 2020 History of Any Multi-Drug Resistant Organisms: None Reported Past Surgical History: Coronary Bypass/CABG, Heart Catheterization, Heart Catheterization With Stent Additional Past Surgical History / Comment(s): 1991 CABG 3 vessel, 2006 CABG 3 vessel, trachial plasty/laser surgery/resection, penile implant Past Anesthesia/Blood Transfusion Reactions: No Reported Reaction Date of Last Stent Placement:: 2005 Smoking Status: Former smoker - Past Family History Father Family Medical History: Coronary Artery Disease (CAD) Brother(s) Family Medical History: Coronary Artery Disease (CAD) Medications and Allergies Home Medications Medication Instructions Recorded Confirmed Type Aspirin 81 mg PO DAILY 07/09/15 12/21/21 History Pantoprazole Sodium [Protonix] 20 mg PO DAILY 09/18/21 12/21/21 History Tamsulosin [Flomax] 0.4 mg PO DAILY 09/18/21 12/21/21 History Albuterol Inhaler [Ventolin Hfa 2 puff INHALATION RT-QID PRN 12/06/21 12/21/21 History Inhaler] Clopidogrel [Plavix] 75 mg PO DAILY 12/06/21 12/21/21 History Atorvastatin [Lipitor] 40 mg PO DAILY #30 tab 12/09/21 12/21/21 Rx Budesonide [Pulmicort] 1 mg INHALATION RT-BID ml 12/09/21 12/21/21 Rx HYDROcodone/APAP 10-325MG [[place] 1 tab PO QID PRN #30 tab 12/09/21 12/21/21 Rx 10-325] Ipratropium-Albuterol Nebulize 3 ml INHALATION RT-QID ml 12/09/21 12/21/21 Rx [Duoneb 0.5 mg-3 mg/3 ml Soln] Isosorbide Mononitrate ER [Imdur] 60 mg PO DAILY #30 tab 12/09/21 12/21/21 Rx Midodrine [ProAmatine] 5 mg PO AC-TID #90 tab 12/09/21 12/21/21 Rx Sodium Bicarbonate Tab 650 mg PO TID #60 tab 12/09/21 12/21/21 Rx Metoprolol Tartrate [Lopressor] 12.5 mg PO BID 12/21/21 12/21/21 History Montelukast [Singulair] 10 mg PO HS 12/21/21 12/21/21 History Nitroglycerin Sl Tabs [Nitrostat] 0.4 mg SL Q5M PRN 12/21/21 12/21/21 History Allergies Allergy/AdvReac Type Severity Reaction Status Date / Time No Known Allergies Allergy Verified 12/21/21 08:36 Physical Exam Vitals: Vital Signs Temp Pulse Resp BP Pulse Ox 12/21/21 10:09 78 16 176/92 99 12/21/21 07:43 98 F 95 18 140/70 100 Intake and Output 12/20/21 12/21/21 12/21/21 22:59 06:59 14:59 Other: Weight 54.431 kg Results 12/21/21 07:30 12/21/21 07:30 Cardiac Enzymes 12/21/21 Range/Units 07:30 Troponin I 0.013 (0.000-0.034) ng/mL Coagulation 12/21/21 Range/Units 07:30 PT 10.1 (9.0-12.0) sec APTT 24.1 (22.0-30.0) sec CBC 12/21/21 Range/Units 07:30 WBC 14.0 H (3.8-10.6) k/uL RBC 4.37 (4.30-5.90) m/uL Hgb 13.0 (13.0-17.5) gm/dL Hct 42.0 (39.0-53.0) % Plt Count 316 (150-450) k/uL Comprehensive Metabolic Panel 12/21/21 Range/Units 07:30 Sodium 139 (137-145) mmol/L Potassium 4.5 (3.5-5.1) mmol/L Chloride 108 H (98-107) mmol/L Carbon Dioxide 21 L (22-30) mmol/L BUN 29 H (9-20) mg/dL Creatinine 1.36 H (0.66-1.25) mg/dL Glucose 126 H (74-99) mg/dL Calcium 9.3 (8.4-10.2) mg/dL Current Medications Generic Name Dose Route Start Last Admin Trade Name Freq PRN Reason Stop Dose Admin Hydrocodone Bitart/Acetaminophen 1 each 12/21/21 10:48 12/21/21 11:45 Hydrocodone/Apap 10-325mg 1 Each Tab PO 1 each QID PRN Administration Pain Albuterol Sulfate 2.5 mg 12/21/21 10:48 Albuterol Nebulized 2.5 Mg/3 Ml INHALATION RT-QID PRN Shortness Of Breath Albuterol/Ipratropium 3 ml 12/21/21 12:00 12/21/21 11:09 Ipratropium-Albuterol 3 Ml Neb INHALATION Not Given RT-QID [facility] Aspirin 81 mg 12/22/21 09:00 Aspirin 81 Mg PO DAILY [facility] Atorvastatin Calcium 40 mg 12/22/21 09:00 Atorvastatin 40 Mg Tab PO DAILY [facility] Budesonide 1 mg 12/21/21 10:48 12/21/21 11:09 Budesonide 1 Mg/2 Ml Nebu INHALATION Not Given RT-BID [facility] Clopidogrel Bisulfate 75 mg 12/22/21 09:00 Clopidogrel 75 Mg Tab PO DAILY [facility] Furosemide 40 mg 12/22/21 09:00 Furosemide 10 Mg/Ml 4 Ml Vial IV DAILY [facility] Heparin Sodium (Porcine) 0 unit 12/21/21 08:48 Heparin Sodium 1,000 Un/Ml (10ml Vl) IV PER PROTOCOL PRN Low PTT Protocol Heparin Sodium/Sodium Chloride 250 mls @ 6.532 mls/hr 12/21/21 09:00 12/21/21 10:02 25,000 unit/ Sodium Chloride IV 12 units/kg/hr .Q24H MIRIAM 6.532 mls/hr Administration Protocol 12 UNITS/KG/HR Sodium Chloride 1,000 mls @ 20 mls/hr 12/21/21 09:00 12/21/21 10:40 Saline 0.9% IV Not Given .Q24H [facility] Isosorbide Mononitrate 30 mg 12/22/21 12:00 Isosorbide Mononitrate Er 30 Mg Tab.Er.24h PO DAILY@1200 [facility] Metoprolol Tartrate 25 mg 12/21/21 11:00 12/21/21 11:43 Metoprolol Tartrate 25 Mg Tab PO Not Given BID [facility] Montelukast Sodium 10 mg 12/21/21 21:00 Montelukast 10 Mg Tab PO HS [facility] Morphine Sulfate 2 mg 12/21/21 12:07 Morphine Sulfate 2 Mg/Ml Syringe IVP Q4HR PRN Pain/Discomfort Nitroglycerin 0.4 mg 12/21/21 10:48 Nitroglycerin Sl Tabs 0.4 Mg Tab SUBLINGUAL Q5M PRN Chest Pain Pantoprazole Sodium 40 mg 12/21/21 11:00 12/21/21 11:45 Pantoprazole 40 Mg Tablet PO 40 mg DAILY MIRIAM Administration Sodium Bicarbonate 650 mg 12/21/21 16:00 Sodium Bicarbonate Tab 650 Mg Tab PO TID MIRIAM Tamsulosin HCl 0.4 mg 12/21/21 11:00 12/21/21 11:45 Tamsulosin 0.4 Mg Cap.Er.24h PO 0.4 mg DAILY MIRIAM Administration Intake and Output 12/20/21 12/21/21 12/21/21 22:59 06:59 14:59 Other: Weight 54.431 kg Patient Weight 12/22/21 06:59 Weight 54.431 kg 12/21/21 07:30 12/21/21 07:30
[2021-12-21] MEDS: MORPHINE SULFATE 2 MG/ML SYRINGE IVP PRN ×3 (13:15→22:18)
--- NOTE | 2021-12-21 16:03 | P.HPIM ---
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 rather significant cardiac history. previous coronary bypass in 1991 and 2006. previous stenting done. In October 2021 at [facility]- Underwent coronary stenting . has a chronically occluded circumflex. Patient stopped smoking in August 2021 Not very active. he has a penile implant that starts inflating spontaneously. He has looked at several avenues before. He'll need a significant surgery with the urostomy which at this point is not a good idea. Does follow up with Dr. becerra for pain management. Patient this morning when he went to the bathroom became short of breath. Could not get his breath back. Broke out in a sweat. Started having chest pressure. Heart rate is up to 140s. Blood pressure readings started running high. EMS was called. They recorded a blood pressure closer 200 systolic. Still having chest pain. Brought into the ER. Found to be in pulmonary edema. Given IV Lasix and a breathing treatment. [place] better with that. Cardiology consulted. Put on IV heparin Review of systems: GEN.: Tired EYES: [None] HEENT: [None] NECK: [None] RESPIRATORY: [As above] CARDIOVASCULAR: [As above] GASTROINTESTINAL: [None] GENITOURINARY: [None] MUSCULOSKELETAL: [None] LYMPHATICS: [None] HEMATOLOGICAL: [None] PSYCHIATRY: [Bit anxious] NEUROLOGICAL: [None] Past medical history to include: CAD, COPD, trachea stenosis, Social history: Lives with his . 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 Long history of smoking up to August 2021. Family history: CAD Physical examination: VITAL SIGNS: [97.6, 85, 20, 152/76, 98% 3 L] GENERAL: BMI 20.6, crit 30 bed, awake, slightly short of breath. EYES: [Pupils equal. Conjunctiva akil]l. HEENT: [External appearance of nose and ears normal, oral cavity grossly normal]. NECK: [JVD possibly raised; masses not palpable]. HEART: [First and second heart sounds are normal; no edema]. LUNGS:[ Respiratory rate increased; decreased breath sound some basal crackles]. ABDOMEN: [Soft, nontender, liver spleen not palpable, no masses palpable]. PSYCH: [Alert and oriented x3; mood and affect anxious l. MUSCULOSKELETAL:No Clubbing/cyanosis;muscles-grossly intact. Loss of muscle mass NEUROLOGICAL: [Cranial nerves grossly intact; no facial asymmetry, power and sensation grossly intact]. LYMPHATICS: [No lymph nodes palpable in the axilla and neck] INVESTIGATIONS, reviewed in the clinical context: White count 14 hemoglobin 13 platelets 316 sodium 139 potassium 4.5 BUN 29 creatinine 1.36 Troponin I 0.013, 0.070 ProBNP 3320 EKG tracing personally reviewed by me-normal sinus rhythm, PVCs, some ST-T wave changes. Chest x-ray film personally reviewed by me-cardiomegaly, pulmonary edema Previous studies 2-D echo [12/07/2021]: EF 45-50%. Wall motion abnormalities. Moderate aortic regurgitation. Creatinine 1.8 date: 12/09/2021 Creatinine 0.9 for August 2021 Assessment and plan: -Acute on chronic congestive heart failure from systolic dysfunction EF 45% IV Lasix given. Fluid restriction -Acute non-Q wave NE in a patient with known CAD IV heparin monitoring -CAD with a prior history of bypass in 1991 and 2006. Also stenting. Chronically occluded circumflex. Recent intervention in November 14 successful at [facility] Aspirin, Lopressor Lipitor, Plavix -BPH Flomax 0.4 mg daily -Hypertensive urgency Midodrine has been held. -GERD Protonix 20 mg daily -Acute COPD exacerbation in a previous smoker DuoNeb. Inhaled steroids. Follows Dr. Ayden Byrd 90 -Chronic muscular skeletal pain. Chronic pain from auto inflation of penile implant pump Boutte 10 one tablet 4 times a day when necessary. Patient follows with pain specialist Dr. Becerra. -Metabolic acidosis from CK D Sodium bicarbonate -chronic medical debility Fall precautions -Mild protein calorie malnutrition from decreased oral intake Ensure -IV heparin monitoring: Follow PTT -Chronic kidney disease stage III likely nephrosclerosis Follow renal function -Failed penile implant pump, with spontaneous inflation causing recurrent pain Surgical correction currently not an option because of his medical condition. Boutte when necessary -Full code. Per patient request IV Lasix. Home medications resumed. IV heparin. DuoNeb, oxygen. Care was discussed with the patient. Questions answered. 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 Last Myocardial Infarction Date:: 2020 History of Any Multi-Drug Resistant Organisms: None Reported Past Surgical History: Coronary Bypass/CABG, Heart Catheterization, Heart Catheterization With Stent Additional Past Surgical History / Comment(s): 1991 CABG 3 vessel, 2006 CABG 3 vessel, trachial plasty/laser surgery/resection, penile implant Past Anesthesia/Blood Transfusion Reactions: No Reported Reaction Date of Last Stent Placement:: 2005 Smoking Status: Former smoker - Past Family History Father Family Medical History: Coronary Artery Disease (CAD) Brother(s) Family Medical History: Coronary Artery Disease (CAD) Medications and Allergies Home Medications Medication Instructions Recorded Confirmed Type Aspirin 81 mg PO DAILY 07/09/15 12/21/21 History Pantoprazole Sodium [Protonix] 20 mg PO DAILY 09/18/21 12/21/21 History Tamsulosin [Flomax] 0.4 mg PO DAILY 09/18/21 12/21/21 History Albuterol Inhaler [Ventolin Hfa 2 puff INHALATION RT-QID PRN 12/06/21 12/21/21 History Inhaler] Clopidogrel [Plavix] 75 mg PO DAILY 12/06/21 12/21/21 History Atorvastatin [Lipitor] 40 mg PO DAILY #30 tab 12/09/21 12/21/21 Rx Budesonide [Pulmicort] 1 mg INHALATION RT-BID ml 12/09/21 12/21/21 Rx HYDROcodone/APAP 10-325MG [[place] 1 tab PO QID PRN #30 tab 12/09/21 12/21/21 Rx 10-325] Ipratropium-Albuterol Nebulize 3 ml INHALATION RT-QID ml 12/09/21 12/21/21 Rx [Duoneb 0.5 mg-3 mg/3 ml Soln] Isosorbide Mononitrate ER [Imdur] 60 mg PO DAILY #30 tab 12/09/21 12/21/21 Rx Midodrine [ProAmatine] 5 mg PO AC-TID #90 tab 12/09/21 12/21/21 Rx Sodium Bicarbonate Tab 650 mg PO TID #60 tab 12/09/21 12/21/21 Rx Metoprolol Tartrate [Lopressor] 12.5 mg PO BID 12/21/21 12/21/21 History Montelukast [Singulair] 10 mg PO HS 12/21/21 12/21/21 History Nitroglycerin Sl Tabs [Nitrostat] 0.4 mg SL Q5M PRN 12/21/21 12/21/21 History Allergies Allergy/AdvReac Type Severity Reaction Status Date / Time No Known Allergies Allergy Verified 12/21/21 08:36 Physical Exam Vitals: Vital Signs Temp Pulse Resp BP Pulse Ox 12/21/21 10:09 78 16 176/92 99 12/21/21 07:43 98 F 95 18 140/70 100 Intake and Output 12/20/21 12/21/21 12/21/21 22:59 06:59 14:59 Other: Weight 54.431 kg Results CBC & Chem 7: 12/21/21 07:30 12/21/21 07:30 Labs: Abnormal Lab Results - Last 24 Hours (Table) 12/21/21 12/21/21 Range/Units 07:30 07:30 WBC 14.0 H (3.8-10.6) k/uL Neutrophils # 8.5 H (1.3-7.7) k/uL Eosinophils # 1.1 H (0-0.7) k/uL Chloride 108 H (98-107) mmol/L Carbon Dioxide 21 L (22-30) mmol/L BUN 29 H (9-20) mg/dL Creatinine 1.36 H (0.66-1.25) mg/dL Glucose 126 H (74-99) mg/dL Thrombosis Risk Factor Assmnt - Choose All That Apply Any of the Below Risk Factors Present?: Yes Each Factor Represents 1 point: Abnormal pulmonary function (COPD), Heart failure (<1month) Other Risk Factors: Yes Each Risk Factor Represents 2 Points: Age 61-74 years Other congenital or acquired thrombophilia - If yes, enter type in comment: No Thrombosis Risk Factor Assessment Total Risk Factor Score: 4 Thrombosis Risk Factor Assessment Level: Moderate Risk
[2021-12-21] MEDS: MONTELUKAST 10 MG TAB PO SCH (16:46)
[2021-12-21] MEDS: SODIUM BICARBONATE TAB 650 MG TAB PO SCH ×2 (16:46→20:43)
[2021-12-21] MEDS ORDERED: FUROSEMIDE 10 MG/ML 4 ML VIAL IV SCH (21:00)
[2021-12-22] MEDS: MORPHINE SULFATE 2 MG/ML SYRINGE IVP PRN ×5 (02:12→21:33)
[2021-12-22] MEDS: HYDROcodone/APAP 10-325MG 1 EACH TAB PO PRN ×4 (03:56→19:38)
[2021-12-22 06:55] LABS: Calcium 8.8 mg/dL (8.4-10.2)
[2021-12-22] MEDS: BUDESONIDE 1 MG/2 ML NEBU INHALATION SCH ×2 (08:05→20:03)
[2021-12-22] MEDS: IPRATROPIUM-ALBUTEROL 3 ML NEB INHALATION SCH ×4 (08:05→20:03)
[2021-12-22] MEDS ORDERED: ASPIRIN 325 MG TAB PO SCH (09:00)
[2021-12-22] MEDS ORDERED: FUROSEMIDE 10 MG/ML 4 ML VIAL IV SCH (09:00)
[2021-12-22] MEDS: METOPROLOL SUCCINATE (ER) 25 MG TAB.ER.24H PO SCH (09:31)
[2021-12-22] MEDS: PANTOPRAZOLE 40 MG TABLET PO SCH (09:31)
[2021-12-22] MEDS: TAMSULOSIN 0.4 MG CAP.ER.24H PO SCH (09:31)
[2021-12-22] MEDS: ATORVASTATIN 40 MG TAB PO SCH (09:31)
[2021-12-22] MEDS: ASPIRIN 81 MG PO SCH (09:31)
[2021-12-22] MEDS: CLOPIDOGREL 75 MG TAB PO SCH (09:31)
[2021-12-22] MEDS: FUROSEMIDE 40 MG TAB PO SCH (09:31)
[2021-12-22] MEDS: SODIUM BICARBONATE TAB 650 MG TAB PO SCH ×3 (09:31→19:38)
[2021-12-22 11:09] VITALS: BMI 20.5
[2021-12-22] MEDS ORDERED: SODIUM POLYSTYRENE SULFONATE 15 GM/60 ML BOTTLE PO STA (11:31)
[2021-12-22] MEDS: ISOSORBIDE MONONITRATE ER 30 MG TAB.ER.24H PO SCH (12:02)
--- NOTE | 2021-12-22 12:48 | P.PN ---
<Kait Murguia Maame - Last Filed: 12/22/21 12:46> Subjective Progress Note Date: 12/22/21 HISTORY OF PRESENT ILLNESS: This is a 71-year-old male with a past medical history significant for coronary artery disease status post bypass surgery initially 1991 (SELBY-LAD, VG-D1, VG- OM3) and in 2006 (ANISH-LAD, VG-Cx, free ANISH proximally to the vein graft and distally to LAD), dyslipidemia, peripheral vascular disease status post stenting of left subclavian. He was recently hospitalized in August 2021 with a non- STEMI. Cardiac catheterization revealed chronic occlusion of the ostial circumflex. He was transferred to [facility] in [place] and 09/21/2021 underwent PCI of the ostial and diagonal 1 to mid to distal circumflex and PCI of LM/left circumflex/LAD bifurcation. Patient was recently hospitalized earlier this month for CHF. Patient follows in the office with Dr. Hester. We have been asked to see the patient in consultation for CHF. Patient examined at the bedside. Patient presented back to the hospital today with shortness of breath. Patient states he took his pulse ox at home and it was 85%. He also reports his heart rate was 142. Patient also reports having some chest pressure along with shortness of breath this morning. Patient states when EMS arrived they took his blood pressure and was found to be 200/130. The patient was hypotensive during his previous hospitalization and was prescribed Midodine, however the patient states he has not taken any doses of this since being discharged from the hospital. * EKG reveals sinus mechanism with PVCs * Chest xray developing right mid and lower lung field infiltrates. Correlate for pneumonia. Atypical edema could be considered. Some volume overload may be present. * Laboratory data: WBC 14.0. Hemoglobin 13.0. Platelet count 316. Sodium 139. Potassium 4.5. BUN 29. Creatinine 1.36. Magnesium 2.1. Troponin negative 1. ProBNP 3320. * Current home cardiac medications include Midodrine 5 mg 3 times a day, metoprolol tartrate 12.5 mg twice a day, Imdur 60 mg daily, Plavix 75 mg daily, Lipitor 40 mg daily, aspirin 81 mg daily * Most recent echocardiogram obtained November 2021 ejection fraction 45-50%, b sameer inferior LV wall hypokinesis, basal inferior septal LV wall hypokinesis, mid inferior LV wall hypokinesis, moderate aortic regurgitation, mild MR, mild TR 12/22/2021 Patient examined this morning at the bedside. Patient denies chest pain or pressure. He reports improvement in his shortness of breath. Patient's creatinine today 1.45, from 1.36. Potassium resulted at 6.0 however the specimen was hemolyzed. Vital signs stable. PHYSICAL EXAM: VITAL SIGNS: Reviewed. GENERAL: Well-developed in no acute distress. HEENT: Head is normocephalic. Pupils are equal, round. Sclerae anicteric. Mucous membranes of the mouth are moist. Neck supple. No JVD or thyromegaly LUNGS: Respirations even and unlabored. Lungs diminished with bilateral crackles. HEART: Regular rate and rhythm. S1 and S2 heard. Systolic murmur noted. ABDOMEN: Soft. Nondistended. Nontender. EXTREMITIES: Normal range of motion. No clubbing or cyanosis. Peripheral pulses intact. Trace lower extremity edema NEUROLOGIC: Awake and alert. Oriented x 3. ASSESSMENT: Shortness of breath Chest pain, ACS ruled out Acute on chronic heart failure with preserved ejection fraction, intermediate with EF 45-50% Acute Kidney Injury Coronary artery disease with prior CABG in 1991 and 2006 and recent PCI at [facility] on September 21, 2021 Hypotension Peripheral vascular disease Dyslipidemia PLAN: Continue current cardiac medications Change lasix to 40mg oral daily Add lisinopril 5mg at night Possible discharge home tomorrow Further recommendations pending patient's course Nurse practitioner note has been reviewed by physician. Signing provider agrees with the documented findings, assessment, and plan of care. Objective - Vital Signs Vital signs: Vital Signs Temp 98.2 F 12/22/21 08:00 Pulse 85 12/22/21 11:59 Resp 20 12/22/21 08:00 BP 134/55 12/22/21 08:00 Pulse Ox 95 12/22/21 08:00 Intake & Output 12/21/21 12/22/21 12/22/21 18:59 06:59 18:59 Intake Total 224.091 420 Balance 224.091 420 Weight 54.431 kg 54.431 kg Intake: Intake, IV Titration 44.091 Amount Heparin Sod,Pork in 0.45% 44.091 NaCl 25,000 unit In 0.45 % NaCl 1 250ml.bag @ 12 UNITS/KG/HR 6.532 mls/hr IV .Q24H [facility] Rx#: [id number] Oral 180 420 - Labs CBC & Chem 7: 12/21/21 07:30 12/22/21 05:45 Labs: Abnormal Lab Results - Last 24 Hours (Table) 12/21/21 12/22/21 Range/Units 13:05 05:45 Potassium 6.0 H (3.5-5.1) mmol/L BUN 29 H (9-20) mg/dL Creatinine 1.45 H (0.66-1.25) mg/dL Glucose 103 H (74-99) mg/dL Troponin I 0.070 H* (0.000-0.034) ng/mL <Per Covarrubias - Last Filed: 12/22/21 14:04> Subjective Patient interviewed and examined by me. Data reviewed. Impression and plan formulated by me and discussed with nurse practitioner Nurse practitioner transcribed note on my behalf Objective - Vital Signs Vital signs: Vital Signs Temp 98.2 F 12/22/21 08:00 Pulse 85 12/22/21 11:59 Resp 20 12/22/21 08:00 BP 134/55 12/22/21 08:00 Pulse Ox 95 12/22/21 08:00 Intake & Output 12/21/21 12/22/21 12/22/21 18:59 06:59 18:59 Intake Total 224.091 600 Balance 224.091 600 Weight 54.431 kg 54.431 kg Intake: Intake, IV Titration 44.091 Amount Heparin Sod,Pork in 0.45% 44.091 NaCl 25,000 unit In 0.45 % NaCl 1 250ml.bag @ 12 UNITS/KG/HR 6.532 mls/hr IV .Q24H [facility] Rx#: [id number] Oral 180 600 - Labs CBC & Chem 7: 12/21/21 07:30 12/22/21 05:45 Labs: Abnormal Lab Results - Last 24 Hours (Table) 12/21/21 12/22/21 Range/Units 13:05 05:45 Potassium 6.0 H (3.5-5.1) mmol/L BUN 29 H (9-20) mg/dL Creatinine 1.45 H (0.66-1.25) mg/dL Glucose 103 H (74-99) mg/dL Troponin I 0.070 H* (0.000-0.034) ng/mL
[2021-12-22] MEDS: MONTELUKAST 10 MG TAB PO SCH (19:38)
[2021-12-22] MEDS ORDERED: lisinopriL 5 MG TAB PO SCH (21:00)
[2021-12-22] MEDS: SODIUM CHLORIDE 0.9% 1,000 ML IV SCH (21:42)
--- NOTE | 2021-12-22 22:25 | P.PN ---
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 rather significant cardiac history. previous coronary bypass in 1991 and 2006. previous stenting done. In October 2021 at [facility]-Underwent coronary stenting . has a chronically occluded circumflex. Patient stopped smoking in August 2021 Not very active. he has a penile implant that starts inflating spontaneously. He has looked at several avenues before. He'll need a significant surgery with the urostomy which at this point is not a good idea. Does follow up with Dr. becerra for pain management. Patient this morning when he went to the bathroom became short of breath. Could not get his breath back. Broke out in a sweat. Started having chest pressure. Heart rate is up to 140s. Blood pressure readings started running high. EMS was called. They recorded a blood pressure closer 200 systolic. Still having chest pain. Brought into the ER. Found to be in pulmonary edema. Given IV Lasix and a breathing treatment. [place] better with that. Cardiology consulted. Put on IV heparin Patient admitted with acute non-Q-wave UT, CHF exacerbation. Place on IV heparin. IV Lasix December 22: Patient requested IV heparin to be discontinued hence it was discontinued. Patient is a very difficult blood draw. Breathing is a bit better today. Remains on IV Lasix. Chest pain better. Tired. Eating some. Questions answered. Active Medications Hydrocodone Bitart/Acetaminophen (Hydrocodone/Apap 10-325mg 1 Each Tab) 1 each PO QID PRN PRN Reason: Pain Last Admin: 12/22/21 19:38 Dose: 1 each Documented by: Albuterol Sulfate (Albuterol Nebulized 2.5 Mg/3 Ml) 2.5 mg INHALATION RT-QID PRN PRN Reason: Shortness Of Breath Albuterol/Ipratropium (Ipratropium-Albuterol 3 Ml Neb) 3 ml INHALATION RT-QID [facility] Last Admin: 12/22/21 20:03 Dose: 3 ml Documented by: Aspirin (Aspirin 81 Mg) 81 mg PO DAILY [facility] Last Admin: 12/22/21 09:31 Dose: 81 mg Documented by: Atorvastatin Calcium (Atorvastatin 40 Mg Tab) 40 mg PO DAILY [facility] Last Admin: 12/22/21 09:31 Dose: 40 mg Documented by: Budesonide (Budesonide 1 Mg/2 Ml Nebu) 1 mg INHALATION RT-BID [facility] Last Admin: 12/22/21 20:03 Dose: 1 mg Documented by: Clopidogrel Bisulfate (Clopidogrel 75 Mg Tab) 75 mg PO DAILY [facility] Last Admin: 12/22/21 09:31 Dose: 75 mg Documented by: Furosemide (Furosemide 40 Mg Tab) 40 mg PO DAILY [facility] Last Admin: 12/22/21 09:31 Dose: 40 mg Documented by: Sodium Chloride (Saline 0.9%) 1,000 mls @ 20 mls/hr IV .Q24H [facility] Last Admin: 12/22/21 21:42 Dose: Not Given Documented by: Isosorbide Mononitrate (Isosorbide Mononitrate Er 30 Mg Tab.Er.24h) 30 mg PO DAILY@1200 [facility] Last Admin: 12/22/21 12:02 Dose: 30 mg Documented by: Lisinopril (Lisinopril 5 Mg Tab) 5 mg PO [facility] Last Admin: 12/22/21 19:38 Dose: 5 mg Documented by: Metoprolol Succinate (Metoprolol Succinate (Er) 25 Mg Tab.Er.24h) 25 mg PO DAILY [facility] Last Admin: 12/22/21 09:31 Dose: 25 mg Documented by: Montelukast Sodium (Montelukast 10 Mg Tab) 10 mg PO [facility] Last Admin: 12/22/21 19:38 Dose: 10 mg Documented by: Morphine Sulfate (Morphine Sulfate 2 Mg/Ml Syringe) 2 mg IVP Q4HR PRN PRN Reason: Pain/Discomfort Last Admin: 12/22/21 21:33 Dose: 2 mg Documented by: Nitroglycerin (Nitroglycerin Sl Tabs 0.4 Mg Tab) 0.4 mg SUBLINGUAL Q5M PRN PRN Reason: Chest Pain Pantoprazole Sodium (Pantoprazole 40 Mg Tablet) 40 mg PO DAILY [facility] Last Admin: 12/22/21 09:31 Dose: 40 mg Documented by: Sodium Bicarbonate (Sodium Bicarbonate Tab 650 Mg Tab) 650 mg PO TID [facility] Last Admin: 12/22/21 19:38 Dose: 650 mg Documented by: Tamsulosin HCl (Tamsulosin 0.4 Mg Cap.Er.24h) 0.4 mg PO DAILY [facility] Last Admin: 12/22/21 09:31 Dose: 0.4 mg Documented by: Past medical history to include: CAD, COPD, trachea stenosis, Social history: Lives with his . 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 Long history of smoking up to August 2021. Family history: CAD Physical examination: VITAL SIGNS: 98.2, 100, 20, 134/55, 95% on 3 L GENERAL: awake, breathing better, tired EYES: Pupils equal. Conjunctiva normal. HEENT: External appearance of nose and ears normal, oral cavity grossly normal. NECK: JVD possibly raised; masses not palpable. HEART: First and second heart sounds are normal; no edema. LUNGS: Respiratory rate increased; decreased breath sound some basal crackles. ABDOMEN: Soft, nontender, liver spleen not palpable, no masses palpable. PSYCH: [Alert and oriented x3; mood and affect anxious l. MUSCULOSKELETAL:No Clubbing/cyanosis;muscles-grossly intact. Loss of muscle mass INVESTIGATINS, reviewed in the clinical context: December 22: Sodium 138 BUN 29 creatinine 1.45 White count 14 hemoglobin 13 platelets 316 sodium 39 potassium 4. BUN 29 creatinine 1.36 Troponin I 0.013, 0.07 ProBNP 3320 EKG tracing personally reviewed by me-normal sinus rhythm, PVCs, some ST-T wave changes. Chest x-ray film personally reviewed by me-cardiomegaly, pulmonary edema Previous studies 2-D echo [12/07/2021]: EF 45-50%. Wall motion abnormalities. Moderate aortic regurgitation. Creatinine 1.8 date: 12/09/2021 Creatinine 0.9 for August 2021 Assessment and tess: -Acue on chronic congestive heart failure from systolic dysfunction EF 45%: Slow to respond IV Lasix continue. Patient advised to avoid excessive water intake -Acute non-Q wave UT in a patient with known CAD Aspirin, Lopressor, Lipitor, Plavix IV heparin monitoring: Discontinued per patient request -CAD with a prior history of bypass in 1991 and 2006. Also stenting. Chronically occluded circumflex. Recent intervention in November 14 successful at [facility] Aspirin, Lopressor Lipitor, Plavix -BPH Flomax 0.4 mg daily -Hypertensive urgency Midodrine has been held. -GERD Protonix 20 mg daily -Acute COPD exacerbation in a previous smoker DuoNeb. Inhaled steroids. Follows Dr. Ayden sanchez -Chronic muscular skeletal pain. Chronic pain from auto inflation of penile implant pump Kyle 10 one tablet 4 times a day when necessary. Patient follows with pain specialist Dr. Becerra. -Metabolic acidosis from CK D Sodium bicarbonate -chronic medical debility Fall precautions -Mild protein calorie malnutrition from decreased oral intake Ensure -Chronic kidney disease stage III likely nephrosclerosis Follow renal function -Failed penile implant pump, with spontaneous inflation causing recurrent pain Surgical correction currently not an option because of his medical condition. Kyle when necessary -Full code. IV Lasix. We'll follow last. Care was discussed at length with the patient. Questions answered. Prognosis guarded.
[2021-12-23] MEDS: HYDROcodone/APAP 10-325MG 1 EACH TAB PO PRN ×3 (01:00→11:58)
[2021-12-23] MEDS: MORPHINE SULFATE 2 MG/ML SYRINGE IVP PRN ×3 (03:40→13:46)
[2021-12-23] MEDS: BUDESONIDE 1 MG/2 ML NEBU INHALATION SCH (08:17)
[2021-12-23] MEDS: IPRATROPIUM-ALBUTEROL 3 ML NEB INHALATION SCH ×3 (08:17→15:05)
[2021-12-23] MEDS: ATORVASTATIN 40 MG TAB PO SCH (09:06)
[2021-12-23] MEDS: CLOPIDOGREL 75 MG TAB PO SCH (09:07)
[2021-12-23] MEDS: ASPIRIN 81 MG PO SCH (09:07)
[2021-12-23] MEDS: SODIUM BICARBONATE TAB 650 MG TAB PO SCH (09:07)
[2021-12-23] MEDS: TAMSULOSIN 0.4 MG CAP.ER.24H PO SCH (09:07)
[2021-12-23] MEDS: FUROSEMIDE 40 MG TAB PO SCH (09:07)
[2021-12-23] MEDS: PANTOPRAZOLE 40 MG TABLET PO SCH (09:11)
[2021-12-23 09:51] VITALS: TEMP 97.8
[2021-12-23] MEDS: SODIUM CHLORIDE 0.9% 1,000 ML IV SCH (11:25)
[2021-12-23] MEDS: METOPROLOL SUCCINATE (ER) 25 MG TAB.ER.24H PO SCH (12:01)
[2021-12-23] MEDS: ISOSORBIDE MONONITRATE ER 30 MG TAB.ER.24H PO SCH (12:02)
--- NOTE | 2021-12-23 12:31 | P.PN ---
Subjective Progress Note Date: 12/23/21 HISTORY OF PRESENT ILLNESS: This is a 71-year-old male with a past medical history significant for coronary artery disease status post bypass surgery initially 1991 (SELBY-LAD, VG-D1, VG- OM3) and in 2006 (ANISH-LAD, VG-Cx, free ANISH proximally to the vein graft and distally to LAD), dyslipidemia, peripheral vascular disease status post stenting of left subclavian. He was recently hospitalized in August 2021 with a non- STEMI. Cardiac catheterization revealed chronic occlusion of the ostial circumflex. He was transferred to [facility] in [place] and 09/21/2021 underwent PCI of the ostial and diagonal 1 to mid to distal circumflex and PCI of LM/left circumflex/LAD bifurcation. Patient was recently hospitalized earlier this month for CHF. Patient follows in the office with Dr. Hester. We have been asked to see the patient in consultation for CHF. Patient examined at the bedside. Patient presented back to the hospital today with shortness of breath. Patient states he took his pulse ox at home and it was 85%. He also reports his heart rate was 142. Patient also reports having some chest pressure along with shortness of breath this morning. Patient states when EMS arrived they took his blood pressure and was found to be 200/130. The patient was hypotensive during his previous hospitalization and was prescribed Midodine, however the patient states he has not taken any doses of this since being discharged from the hospital. * EKG reveals sinus mechanism with PVCs * Chest xray developing right mid and lower lung field infiltrates. Correlate for pneumonia. Atypical edema could be considered. Some volume overload may be present. * Laboratory data: WBC 14.0. Hemoglobin 13.0. Platelet count 316. Sodium 139. Potassium 4.5. BUN 29. Creatinine 1.36. Magnesium 2.1. Troponin negative 1. ProBNP 3320. * Current home cardiac medications include Midodrine 5 mg 3 times a day, metoprolol tartrate 12.5 mg twice a day, Imdur 60 mg daily, Plavix 75 mg daily, Lipitor 40 mg daily, aspirin 81 mg daily * Most recent echocardiogram obtained November 2021 ejection fraction 45-50%, basal inferior LV wall hypokinesis, basal inferior septal LV wall hypokinesis, mid inferior LV wall hypokinesis, moderate aortic regurgitation, mild MR, mild TR 12/22/2021 Patient examined this morning at the bedside. Patient denies chest pain or pressure. He reports improvement in his shortness of breath. Patient's creatinine today 1.45, from 1.36. Potassium resulted at 6.0 however the specimen was hemolyzed. Vital signs stable. 12/23/2021 Patient examined this morning at the bedside. Patient denies chest pain or pressure. Patient denies shortness of breath. Patient's blood pressure on the lower side today with a recent reading of 94/58. PHYSICAL EXAM: VITAL SIGNS: Reviewed. GENERAL: Well-developed in no acute distress. HEENT: Head is normocephalic. Pupils are equal, round. Sclerae anicteric. Mucous membranes of the mouth are moist. Neck supple. No JVD or thyromegaly LUNGS: Respirations even and unlabored. Lungs diminished with bilateral crackles. HEART: Regular rate and rhythm. S1 and S2 heard. Systolic murmur noted. ABDOMEN: Soft. Nondistended. Nontender. EXTREMITIES: Normal range of motion. No clubbing or cyanosis. Peripheral pulses intact. Trace lower extremity edema NEUROLOGIC: Awake and alert. Oriented x 3. ASSESSMENT: Shortness of breath Chest pain, ACS ruled out Acute on chronic heart failure with preserved ejection fraction, intermediate with EF 45-50% Acute Kidney Injury Coronary artery disease with prior CABG in 1991 and 2006 and recent PCI at [facility] on September 21, 2021 Hypotension Peripheral vascular disease Dyslipidemia PLAN: Continue current cardiac medications Consider adding Ranexa an outpatient basis Dr. Covarrubias spoke to patient regarding spacing out his medications and taking his BP at home. Patient verbalized understanding Patient may be discharged home today from a cardiac standpoint Nurse practitioner note has been reviewed by physician. Signing provider agrees with the documented findings, assessment, and plan of care. Objective - Vital Signs Vital signs: Vital Signs Temp 97.8 F 12/23/21 08:00 Pulse 89 12/23/21 11:44 Resp 20 12/23/21 08:00 BP 94/58 12/23/21 08:00 Pulse Ox 97 12/23/21 08:00 Intake & Output 12/22/21 12/23/21 12/23/21 18:59 06:59 18:59 Intake Total 840 490 Balance 840 490 Weight 54.431 kg Intake: Oral 840 490 Other: Voiding Method Toilet # Voids 1 - Labs CBC & Chem 7: 12/21/21 07:30 12/22/21 05:45
[2021-12-23 12:43] VITALS: BP 96/53; PULSE 81; RESP 18
--- NOTE | 2021-12-23 15:51 | P.DS ---
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 previous coronary bypass in 1991 and 2006. previous stenting done. In October 2021 at [facility]- Underwent coronary stenting . has a chronically occluded circumflex. Patient stopped smoking in August 2021 Not very active. he has a penile implant that starts inflating spontaneously. He has looked at several avenues before. He'll need a significant surgery with the urostomy which at this point is not a good idea. Does follow up with Dr. becerra for pain management. Patient this morning when he went to the bathroom became short of breath. Could not get his breath back. Broke out in a sweat. Started having chest pressure. Heart rate is up to 140s. Blood pressure readings started running high. EMS was called. They recorded a blood pressure closer 200 systolic. Still having chest pain. Brought into the ER. Found to be in pulmonary edema. Given IV Lasix and a breathing treatment. Erwin better with that. Cardiology consulted. Put on IV heparin Patient admitted with acute non-Q-wave AL, CHF exacerbation. Place on IV heparin. IV Lasix December 22: Patient requested IV heparin to be discontinued hence it was discontinued. Patient is a very difficult blood draw. Breathing is a bit better today. Remains on IV Lasix. Chest pain better. Tired. Eating some. Questions answered. December 23: Patient more comfortable today. Breathing better. Cleared by cardiology for discharge. Had a lengthy talk with the patient. Including getting a oxygen cord to get into the bathroom. He also must use his scheduled nebulizers. Also spoke to patient's son gianna Campos. Questions answered. 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 Family history: CAD Physical examination: VITAL SIGNS: 97.8, 82, 20, 94/58, 97% on 2 L GENERAL: awake, breathing better, EYES: Pupils equal. Conjunctiva normal. HEENT: External appearance of nose and ears normal, oral cavity grossly normal. NECK: JVD possibly raised; masses not palpable. HEART: First and second heart sounds are normal; no edema. LUNGS: Respiratory rate increased; decreased breath sound ABDOMEN: Soft, nontender, liver spleen not palpable, no masses palpable. PSYCH: [Alert and oriented x3; mood and affect anxious MUSCULOSKELETAL:No Clubbing/cyanosis;muscles-grossly intact. Loss of muscle mass INVESTIGATINS, reviewed in the clinical context: December 22: Sodium 138 BUN 29 creatinine 1.45 White count 14 hemoglobin 13 platelets 316 sodium 39 potassium 4. BUN 29 creatinine 1.36 Troponin I 0.013, 0.07 ProBNP 3320 EKG tracing personally reviewed by me-normal sinus rhythm, PVCs, some ST-T wave changes. Chest x-ray film personally reviewed by me-cardiomegaly, pulmonary edema Previous studies 2-D echo [12/07/2021]: EF 45-50%. Wall motion abnormalities. Moderate aortic regurgitation. Creatinine 1.8 date: 12/09/2021 Creatinine 0.9 for August 2021 Assessment and tess: -Acue on chronic congestive heart failure from systolic dysfunction EF 45%: Better IV Lasix continue. Patient advised to avoid excessive water intake. DC on by mouth Lasix -Acute non-Q wave AL in a patient with known CAD Aspirin, Lopressor, Lipitor, Plavix IV heparin monitoring: Discontinued per patient request -CAD with a prior history of bypass in 1991 and 2006. Also stenting. Chronically occluded circumflex. Recent intervention in November 14 successful at [facility] Aspirin, Lopressor Lipitor, Plavix -BPH Flomax 0.4 mg daily -Hypertensive urgency Midodrine has been discontinued -GERD Protonix 20 mg daily -Acute COPD exacerbation in a previous smoker Danielle. Inhaled steroids. Follows Dr. Ayden sanchez -Chronic hypoxic respiratory failure from underlying COPD Home oxygen about 2 L -Chronic muscular skeletal pain. Chronic pain from auto inflation of penile implant pump [place] 10 one tablet 4 times a day when necessary. Patient follows with pain specialist Dr. Becerra. -Metabolic acidosis from CK D Sodium bicarbonate -chronic medical debility Fall precautions -Mild protein calorie malnutrition from decreased oral intake Ensure -Chronic kidney disease stage III likely nephrosclerosis Follow renal function -Failed penile implant pump, with spontaneous inflation causing recurrent pain Surgical correction currently not an option because of his medical condition. [place] when necessary -Full code. Disposition: Home Plan - Discharge Summary Discharge Rx Participant: No New Discharge Prescriptions: New Isosorbide Mononitrate ER [Imdur] 30 mg PO DAILY@1200 #30 tablet Metoprolol Succinate (ER) [Toprol Xl] 25 mg PO DAILY #30 tab Furosemide [Lasix] 40 mg PO DAILY #30 tab lisinopriL [Zestril] 5 mg PO HS #30 tab Continue Aspirin 81 mg PO DAILY Tamsulosin [Flomax] 0.4 mg PO DAILY Clopidogrel [Plavix] 75 mg PO DAILY Atorvastatin [Lipitor] 40 mg PO DAILY #30 tab Pantoprazole Sodium [Protonix] 20 mg PO DAILY Albuterol Inhaler [Ventolin Hfa Inhaler] 2 puff INHALATION RT-QID PRN PRN Reason: Shortness Of Breath Ipratropium-Albuterol Nebulize [Duoneb 0.5 mg-3 mg/3 ml Soln] 3 ml INHALATION RT-QID ml Budesonide [Pulmicort] 1 mg INHALATION RT-BID ml Sodium Bicarbonate Tab 650 mg PO TID #60 tab HYDROcodone/APAP 10-325MG [[place] 10-325] 1 tab PO QID PRN #30 tab PRN Reason: Pain Nitroglycerin Sl Tabs [Nitrostat] 0.4 mg SL Q5M PRN PRN Reason: Chest Pain Montelukast [Singulair] 10 mg PO HS Discontinued Isosorbide Mononitrate ER [Imdur] 60 mg PO DAILY #30 tab Midodrine [ProAmatine] 5 mg PO AC-TID #90 tab Metoprolol Tartrate [Lopressor] 12.5 mg PO BID Discharge Medication List Aspirin 81 mg PO DAILY 07/09/15 [History] Pantoprazole Sodium [Protonix] 20 mg PO DAILY 09/18/21 [History] Tamsulosin [Flomax] 0.4 mg PO DAILY 09/18/21 [History] Albuterol Inhaler [Ventolin Hfa Inhaler] 2 puff INHALATION RT-QID PRN 12/06/21 [History] Clopidogrel [Plavix] 75 mg PO DAILY 12/06/21 [History] Atorvastatin [Lipitor] 40 mg PO DAILY #30 tab 12/09/21 [Rx] Budesonide [Pulmicort] 1 mg INHALATION RT-BID ml 12/09/21 [Rx] HYDROcodone/APAP 10-325MG [[place] 10-325] 1 tab PO QID PRN #30 tab 12/09/21 [Rx] Ipratropium-Albuterol Nebulize [Duoneb 0.5 mg-3 mg/3 ml Soln] 3 ml INHALATION RT-QID ml 12/09/21 [Rx] Sodium Bicarbonate Tab 650 mg PO TID #60 tab 12/09/21 [Rx] Montelukast [Singulair] 10 mg PO HS 12/21/21 [History] Nitroglycerin Sl Tabs [Nitrostat] 0.4 mg SL Q5M PRN 12/21/21 [History] Furosemide [Lasix] 40 mg PO DAILY #30 tab 12/23/21 [Rx] Isosorbide Mononitrate ER [Imdur] 30 mg PO DAILY@1200 #30 tablet 12/23/21 [Rx] Metoprolol Succinate (ER) [Toprol Xl] 25 mg PO DAILY #30 tab 12/23/21 [Rx] lisinopriL [Zestril] 5 mg PO HS #30 tab 12/23/21 [Rx] Follow up Appointment(s)/Referral(s): Jelly Onofre MD [Primary Care Provider] - 12/28/21 2:30 pm () [facility] [NON-STAFF] - (Home care will be in contact.) Estephanie Sosa MD [STAFF PHYSICIAN] - 01/06/22 2:00 pm () Activity/Diet/Wound Care/Special Instructions: BMP - 5 days Discharge Disposition: HOME WITH HOME HEALTH SERVICES
== END 2021-12-23 15:15 | disposition home health service (06) | DRG 280 ==
LOC: EC 07:23 → 3SCARD 08:50
PROVIDERS: ADMIT Hospitalist; ATTEND Hospitalist
DX: I21.4 Non-ST elevation (NSTEMI) myocardial infarction (principal); I50.33 Acute on chronic diastolic (congestive) heart failure; E44.1 Mild protein-calorie malnutrition; E87.2 Acidosis; N17.9 Acute kidney failure, unspecified; J96.11 Chronic respiratory failure with hypoxia; I13.0 Hypertensive heart and chronic kidney disease with heart failure and stage 1 through stage 4 chronic kidney disease, or unspecified chronic kidney disease; J44.1 Chronic obstructive pulmonary disease with (acute) exacerbation; I95.9 Hypotension, unspecified; N18.30 Chronic kidney disease, stage 3 unspecified; I16.0 Hypertensive urgency; I49.3 Ventricular premature depolarization; I25.10 Atherosclerotic heart disease of native coronary artery without angina pectoris; Z68.20 Body mass index [BMI] 20.0-20.9, adult; I08.3 Combined rheumatic disorders of mitral, aortic and tricuspid valves; I25.2 Old myocardial infarction; E78.5 Hyperlipidemia, unspecified; N40.0 Benign prostatic hyperplasia without lower urinary tract symptoms; K21.9 Gastro-esophageal reflux disease without esophagitis; G89.29 Other chronic pain; R53.81 Other malaise; Z79.82 Long term (current) use of aspirin; Z79.02 Long term (current) use of antithrombotics/antiplatelets; Z79.51 Long term (current) use of inhaled steroids; Z79.899 Other long term (current) drug therapy; Z95.1 Presence of aortocoronary bypass graft; Z95.5 Presence of coronary angioplasty implant and graft; Z87.891 Personal history of nicotine dependence; Z95.820 Peripheral vascular angioplasty status with implants and grafts; Z86.79 Personal history of other diseases of the circulatory system; Z87.01 Personal history of pneumonia (recurrent); Z87.09 Personal history of other diseases of the respiratory system; Z96.0 Presence of urogenital implants; Z98.890 Other specified postprocedural states; Z71.3 Dietary counseling and surveillance; Z82.49 Family history of ischemic heart disease and other diseases of the circulatory system
CPT/HCPCS: 36415; 71045; 80048; 83735; 83880; 84484; 85025; 85610; 85730; 93005; 94640; 94660; 96374; 96375; 99291

== ENCOUNTER 2025-02-14 12:50 | Observation (INO) | payer MEDICARE ==
--- NOTE | 2025-02-14 13:16 | ED ---
General Adult HPI - General Chief complaint: Recheck/Abnormal Lab/Rx Stated complaint: SOB Time Seen by Provider: 02/14/25 12:59 Source: patient, RN notes reviewed, old records reviewed Mode of arrival: ambulatory Limitations: no limitations - History of Present Illness Initial comments: 74-year-old male history of CAD, CHF, CKD presenting with persistent dyspnea and decreased urine output. Patient has had multiple evaluations and admissions at outside hospital over the past week. He has remote history of multiple vessel bypass. He has had decreased urine output over the past several days and is concerned that he could be in worsening renal failure. 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 Denies fever. Has had intermittent chest pain. He states he also had recent aspiration pneumonia. - Related Data Home Medications Medication Instructions Recorded Confirmed Aspirin 81 mg PO DAILY 07/09/15 12/21/21 Pantoprazole Sodium [Protonix] 20 mg PO DAILY 09/18/21 12/21/21 Tamsulosin [Flomax] 0.4 mg PO DAILY 09/18/21 12/21/21 Albuterol Inhaler [Ventolin Hfa 2 puff INHALATION RT-QID PRN 12/06/21 12/21/21 Inhaler] Clopidogrel [Plavix] 75 mg PO DAILY 12/06/21 12/21/21 Montelukast [Singulair] 10 mg PO HS 12/21/21 12/21/21 Nitroglycerin Sl Tabs [Nitrostat] 0.4 mg SL Q5M PRN 12/21/21 12/21/21 Previous Rx's Medication Instructions Recorded Atorvastatin [Lipitor] 40 mg PO DAILY #30 tab 12/09/21 Budesonide [Pulmicort] 1 mg INHALATION RT-BID ml 12/09/21 HYDROcodone/APAP 10-325MG [[place] 1 tab PO QID PRN #30 tab 12/09/21 10-325] Ipratropium-Albuterol Nebulize 3 ml INHALATION RT-QID ml 12/09/21 [Duoneb 0.5 mg-3 mg/3 ml Soln] Sodium Bicarbonate Tab 650 mg PO TID #60 tab 12/09/21 Furosemide [Lasix] 40 mg PO DAILY #30 tab 12/23/21 Isosorbide Mononitrate ER [Imdur] 30 mg PO DAILY@1200 #30 tablet 12/23/21 Metoprolol Succinate (ER) [Toprol 25 mg PO DAILY #30 tab 12/23/21 Xl] lisinopriL [Zestril] 5 mg PO HS #30 tab 12/23/21 HYDROcodone/APAP 5-325MG [[place] 1 tab PO Q6HR PRN 3 Days #12 tab 09/19/24 5-325] Allergies Allergy/AdvReac Type Severity Reaction Status Date / Time No Known Allergies Allergy Verified 02/14/25 12:57 Review of Systems ROS Statement: Those systems with pertinent positive or pertinent negative responses have been documented in the HPI. ROS Other: All systems not noted in ROS Statement are negative. 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 Last Myocardial Infarction Date:: 2020 History of Any Multi-Drug Resistant Organisms: None Reported Past Surgical History: Coronary Bypass/CABG, Heart Catheterization, Heart Catheterization With Stent Additional Past Surgical History / Comment(s): 1991 CABG 3 vessel, 2006 CABG 3 vessel, trachial plasty/laser surgery/resection, penile implant Past Anesthesia/Blood Transfusion Reactions: No Reported Reaction Date of Last Stent Placement:: 2005 Past Psychological History: No Psychological Hx Reported Smoking Status: Former smoker Past Alcohol Use History: None Reported Past Drug Use History: None Reported - Past Family History Father Family Medical History: Coronary Artery Disease (CAD) Brother(s) Family Medical History: Coronary Artery Disease (CAD) General Exam Limitations: no limitations General appearance: alert, in no apparent distress Head exam: Present: atraumatic, normocephalic Eye exam: Present: normal appearance, PERRL ENT exam: Present: mucous membranes dry Neck exam: Present: normal inspection. Absent: tenderness, meningismus Respiratory exam: Present: decreased breath sounds (Right lung base). Absent: respiratory distress, wheezes Cardiovascular Exam: Present: regular rate, normal rhythm. Absent: JVD GI/Abdominal exam: Present: soft. Absent: distended, tenderness Extremities exam: Present: normal capillary refill. Absent: pedal edema Neurological exam: Present: alert, oriented X3, CN II-XII intact. Absent: motor sensory deficit Psychiatric exam: Present: normal affect, normal mood Skin exam: Present: warm, dry, intact Course Vital Signs 02/14/25 02/14/25 12:51 13:59 Temperature 97.5 F L Pulse Rate 102 H 97 Respiratory 20 24 Rate Blood Pressure 152/77 155/77 O2 Sat by Pulse 98 98 Oximetry Medical Decision Making - Medical Decision Making Was pt. sent in by a medical professional or institution ([facility] [place], PROCESS INSPECTOR, urgent care, hospital, or [facility]...) When possible be specific @ -No Did you speak to anyone other than the patient for history (EMS, parent, family, police, friend...)? What history was obtained from this source @ -No Did you review nursing and triage notes (agree or disagree)? Why? @ -I reviewed and agree with nursing and triage notes Were old charts reviewed (outside hosp., previous admission, EMS record, old EKG, old radiological studies, urgent care reports/EKG's, [facility] records)? Report findings @ -No old charts were reviewed Differential Dyspnea: Coronary syndrome, arrhythmia, tamponade, asthma, COPD, pulmonary embolism, pneumonia, pneumothorax, pulmonary effusion, anaphylaxis, diabetic ketoacidosis, flailed chest, pulmonary contusion, diaphragmatic rupture, anemia, neuromuscular, this is not meant to be an all-inclusive list. EKG interpreted by me (3pts min.). @ -Reported history of left bundle branch block. Sinus rhythm with a left bundle branch block, rate of 98, [place] interval 198, QRS duration 154, QTc 443 X-rays interpreted by me (1pt min.). @Chest x-ray showing infiltrate right lung base CT interpreted by me (1pt min.). @ -None done U/S interpreted by me (1pt. min.). @ -None done What testing was considered but not performed or refused? (CT, X-rays, U/S, labs)? Why? @ -None What meds were considered but not given or refused? Why? @ -None Did you discuss the management of the patient with other professionals (professionals i.e. [facility] [place], PROCESS INSPECTOR, lab, RT, psych nurse, forensic social worker, public health veterinarian, teacher, protective officer, case managers)? Give summary @ -No Was smoking cessation discussed for >3mins.? @ -No Was critical care preformed (if so, how long)? @ -No Were there social determinants of health that impacted care today? How? (Homele ssness, low income, unemployed, alcoholism, drug addiction, transportation, low edu. Level, literacy, decrease access to med. care, group home, rehab)? @ -No Was there de-escalation of care discussed even if they declined (Discuss DNR or withdrawal of care, Hospice)? DNR status @ -No What co-morbidities impacted this encounter? (DM, HTN, Smoking, COPD, CAD, Cancer, CVA, ARF, Chemo, Hep., AIDS, mental health diagnosis, sleep apnea, morbid obesity)? @ -CAD, CKD, history of bypass Was patient admitted / discharged? Hospital course, mention meds given and route, prescriptions, significant lab abnormalities, going to OR and other pertinent info. @ -74-year-old male with significant past medical history of presenting with intermittent chest pain and dyspnea. Patient is in sinus rhythm with left b undle branch block he reports that he has a prior history of left bundle branch block. Chest x-ray is negative for parish CHF. Patient has normal CBC, improved kidney function, negative troponin, negative BNP. Patient will be observed with serial cardiac enzymes, echo, cardiology consultation. Undiagnosed new problem with uncertain prognosis? @ -No Drug Therapy requiring intensive monitoring for toxicity (Heparin, Nitro, Insulin, Cardizem)? @ -No Were any procedures done? @ -No Diagnosis/symptom? @Chest pain, dyspnea Acute, or Chronic, or Acute on Chronic? @ -Acute on chronic Uncomplicated (without systemic symptoms) or Complicated (systemic symptoms)? @ -Default Side effects of treatment? @ -No Exacerbation, Progression, or Severe Exacerbation? @ -No Poses a threat to life or bodily function? How? (Chest pain, [place], ND, pneumonia, PE, COPD, DKA, ARF, appy, cholecystitis, CVA, Diverticulitis, Homicidal, Suicidal, threat to staff... and all critical care pts) @ -Yes, CAD, ACS - Lab Data Result diagrams: 02/14/25 14:07 02/14/25 14:07 Lab Results 02/14/25 02/14/25 02/14/25 Range/Units 14:07 14:07 14:07 WBC 9.60 (4.50-10.00) 10*3/uL RBC 4.85 (4.40-5.60) 10*6/uL Hgb 14.2 (13.0-17.0) g/dL Hct 43.2 (39.6-50.0) % MCV 89.1 (80.0-97.0) fL MCH 29.3 (27.0-32.0) pg MCHC 32.9 (32.0-37.0) g/dL Plt Count 381 (140-440) 10*3/uL MPV 9.3 L (9.5-12.2) fL Immature Gran % (Auto) 0.6 % Neutrophils % 63.8 % Lymphocytes % 23.5 % Monocytes % 8.5 % Eosinophils % 2.9 % Basophils % 0.7 % Immature Gran # 0.06 H (0.00-0.04) 10*3/uL Neutrophils # 6.11 (1.80-7.70) 10*3/uL Lymphocytes # 2.26 (0.90-5.00) 10*3/uL Monocytes # 0.82 (0.20-1.00) 10*3/uL Eosinophils # 0.28 (0.04-0.35) 10*3/uL Basophils # 0.07 (0.00-0.10) 10*3/uL PT 10.7 (10.0-12.5) sec INR 1.0 (<1.2) APTT 23.1 (22.0-30.0) sec Sodium 135 L (137-145) mmol/L Potassium 5.6 H (3.5-5.1) mmol/L Chloride 96 L (98-107) mmol/L Carbon Dioxide 28 (22-30) mmol/L Anion Gap 11 mmol/L BUN 31 H (9-20) mg/dL Creatinine 1.36 H (0.66-1.25) mg/dL Est GFR (CKD-EPI)AfAm 58 (>60 ml/min/1.73 sqM) Est GFR (CKD-EPI)NonAf 51 (>60 ml/min/1.73 sqM) Glucose 135 H (74-99) mg/dL Calcium 10.0 (8.4-10.2) mg/dL Magnesium 2.5 H (1.6-2.3) mg/dL Total Bilirubin 0.9 (0.2-1.3) mg/dL AST 35 (17-59) U/L ALT 29 (4-49) U/L Alkaline Phosphatase 66 (38-126) U/L Troponin I (0.000-0.034) ng/mL NT-Pro-B Natriuret Pep 485 pg/mL Total Protein 8.5 H (6.3-8.2) g/dL Albumin 4.5 (3.5-5.0) g/dL Urine Color Urine Appearance (Clear) Urine pH (5.0-8.0) Ur Specific [place] (1.001-1.035) Urine Protein (Negative) Urine Glucose (UA) (Negative) Urine Ketones (Negative) Urine Blood (Negative) Urine Nitrite (Negative) Urine Bilirubin (Negative) Urine Urobilinogen (<2.0) mg/dL Ur Leukocyte Esterase (Negative) 02/14/25 02/14/25 Range/Units 14:07 14:13 WBC (4.50-10.00) 10*3/uL RBC (4.40-5.60) 10*6/uL Hgb (13.0-17.0) g/dL Hct (39.6-50.0) % MCV (80.0-97.0) fL MCH (27.0-32.0) pg MCHC (32.0-37.0) g/dL Plt Count (140-440) 10*3/uL MPV (9.5-12.2) fL Immature Gran % (Auto) % Neutrophils % % Lymphocytes % % Monocytes % % Eosinophils % % Basophils % % Immature Gran # (0.00-0.04) 10*3/uL Neutrophils # (1.80-7.70) 10*3/uL Lymphocytes # (0.90-5.00) 10*3/uL Monocytes # (0.20-1.00) 10*3/uL Eosinophils # (0.04-0.35) 10*3/uL Basophils # (0.00-0.10) 10*3/uL PT (10.0-12.5) sec INR (<1.2) APTT (22.0-30.0) sec Sodium (137-145) mmol/L Potassium (3.5-5.1) mmol/L Chloride (98-107) mmol/L Carbon Dioxide (22-30) mmol/L Anion Gap mmol/L BUN (9-20) mg/dL Creatinine (0.66-1.25) mg/dL Est GFR (CKD-EPI)AfAm (>60 ml/min/1.73 sqM) Est GFR (CKD-EPI)NonAf (>60 ml/min/1.73 sqM) Glucose (74-99) mg/dL Calcium (8.4-10.2) mg/dL Magnesium (1.6-2.3) mg/dL Total Bilirubin (0.2-1.3) mg/dL AST (17-59) U/L ALT (4-49) U/L Alkaline Phosphatase (38-126) U/L Troponin I 0.016 (0.000-0.034) ng/mL NT-Pro-B Natriuret Pep pg/mL Total Protein (6.3-8.2) g/dL Albumin (3.5-5.0) g/dL Urine Color Yellow Urine Appearance Clear (Clear) Urine pH 6.0 (5.0-8.0) Ur Specific [place] 1.027 (1.001-1.035) Urine Protein Trace H (Negative) Urine Glucose (UA) Negative (Negative) Urine Ketones Negative (Negative) Urine Blood Negative (Negative) Urine Nitrite Negative (Negative) Urine Bilirubin Negative (Negative) Urine Urobilinogen <2.0 (<2.0) mg/dL Ur Leukocyte Esterase Negative (Negative) Disposition Clinical Impression: Chest pain Disposition: ADMITTED IP TO THIS [facility] Condition: Stable Is patient prescribed a controlled substance at d/c from ED?: No Referrals: Gera Solis MD [Primary Care Provider] - 1-2 days Time of Disposition: 15:36
[2025-02-14] MEDS: HYDROcodone/APAP 10-325MG 1 EACH TAB PO ONE (13:27)
--- NOTE | 2025-02-14 14:11 | XR ---
EXAMINATION TYPE: XR chest 2V DATE OF EXAM: 02/14/2025 1:57 PM COMPARISON: 12/21/2024 CLINICAL INDICATION: Male, 74 years old with history of difficulty breathing, TECHNIQUE: XR chest 2V view(s) obtained. FINDINGS: The heart size is normal. The pulmonary vasculature is normal. There appears to be some mild thickening along the lateral right lung margin. This may be posterior o n the lateral projection. This appears improved from comparison. Residual may remain. Follow-up is re commended. CT could be performed for closer evaluation at this time. Benefit.. IMPRESSION: 1. There appears to be some pleural thickening or peripheral infiltrate in the posterior lateral righ t lung. Finding has improved from the November exam. Follow-up however is recommended [facility], , 02/14/2025 2:08 PM
[2025-02-14 14:19] LABS: Basophils # (A) 0.07 10*3/uL (0.00-0.10); Basophils % (A) 0.7 %; Eosinophils # (A) 0.28 10*3/uL (0.04-0.35); Eosinophils % (A) 2.9 %; HCT 43.2 % (39.6-50.0); HGB 14.2 g/dL (13.0-17.0); Lymphocytes # (A) 2.26 10*3/uL (0.90-5.00); Lymphocytes % (A) 23.5 %; MCH 29.3 pg (27.0-32.0); MCHC 32.9 g/dL (32.0-37.0); MCV 89.1 fL (80.0-97.0); Mean Platelet Volume 9.3 fL (9.5-12.2); Monocytes # (A) 0.82 10*3/uL (0.20-1.00); Monocytes % (A) 8.5 %; Neutrophils # (A) 6.11 10*3/uL (1.80-7.70); Neutrophils % (A) 63.8 %; Platelet Count 381 10*3/uL (140-440); RBC 4.85 10*6/uL (4.40-5.60)
[2025-02-14 14:27] LABS: Appearance,Urine Clear (Clear); Bilirubin,Urine Negative (Negative); Blood,Urine Negative (Negative); Color,Urine Yellow; Glucose,Urine (UA) Negative (Negative); Ketones,Urine Negative (Negative); Leukocyte Esterase,Urine Negative (Negative); Nitrite,Urine Negative (Negative); Protein,Urine Trace (Negative); Specific Gravity,Urine 1.027 (1.001-1.035); Urobilinogen,Urine <2.0 mg/dL (<2.0)
[2025-02-14 14:33] LABS: ALT 29 U/L (4-49); African American GFR (CKD) 58 (>60 ml/min/1.73 sqM); Anion Gap 11 mmol/L; Blood Urea Nitrogen 31 mg/dL (9-20); Carbon Dioxide 28 mmol/L (22-30); Chloride 96 mmol/L (98-107); Glucose 135 mg/dL (74-99); Non-African American GFR(CKD) 51 (>60 ml/min/1.73 sqM); Sodium 135 mmol/L (137-145); Total Bilirubin 0.9 mg/dL (0.2-1.3)
[2025-02-14 14:41] LABS: AST 35 U/L (17-59); Albumin 4.5 g/dL (3.5-5.0); Alkaline Phosphatase 66 U/L (38-126); Magnesium 2.5 mg/dL (1.6-2.3); Potassium 5.6 mmol/L (3.5-5.1); Total Protein 8.5 g/dL (6.3-8.2)
[2025-02-14 14:42] LABS: NT-Pro-B-Type Natriuretic Pept 485 pg/mL
[2025-02-14 15:01] LABS: Partial Thromboplastin Time 23.1 sec (22.0-30.0); Prothrombin Time 10.7 sec (10.0-12.5)
[2025-02-14] MEDS ORDERED: NALOXONE 0.4 MG/ML 1 ML VIAL IV PRN (15:32)
[2025-02-14] MEDS ORDERED: HYDROcodone/APAP 10-325MG 1 EACH TAB PO PRN (15:33)
--- NOTE | 2025-02-14 16:23 | P.HPIM ---
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 He shared that he was seen at multiple outside hospitals over the past couple weeks for CHF exacerbation, aspiration pneumonia, he was always discharged home and had to come back, he also mentioned having intermittent chest pain at rest or with exertion. Patient was under hospice care and now decided to be discharged from it. On arrival afebrile, tachycardic 102, BP 152/77, no documented hypoxia however patient was placed on 3 L nasal cannula, satting 98%. CBC was unremarkable, coagulation panel unremarkable, sodium 135, potassium 5.6, creatinine 1.36, previously at the beginning of January it was 1.4, glucose 135, magnesium 2.5, BNP 485, troponin 0.016 UA negative for UTI. Chest x-ray showed pleural thickening or peripheral infiltrate in the posterior lateral right lung, improved from November. Pulmonary vasculature normal. EKG showed sinus rhythm with LBBB, history of LBBB, QTc 443 Pertinent positives and negatives as discussed in HPI, a complete review of systems was performed and all other systems are negative. Patient will be admitted under observation for evaluation of shortness of breath and chest pain, cardiology consulted, TTE ordered Patient seen and examined at bedside. Vital signs reviewed General: In respiratory distress, chronically ill-appearing Derm: warm, dry Head: atraumatic, normocephalic, symmetric Eyes: EOMI, no lid lag, anicteric sclera, pupils equal round reactive to light ENT: Nose and ears atraumatic Neck: No thyromegaly, supple Mouth: no lip lesion, mucus membranes moist Cardiovascular: S1S2 reg, S3, no edema Lungs: Bibasilar crackles, no wheeze, no accessory muscle use, conversational dyspnea Abdominal: soft, nontender to palpation, no guarding, no appreciable organomegaly Ext: no gross muscle atrophy, muscle strength muscle strength 5 out of 5 in all 4 extremities, no contractures Neuro: CN II-XII grossly intact Psych: Alert, oriented, appropriate affect Assessment/Plan: Shortness of breath Chest pain, intermittent HFrEF CAD status post CABG 1991 and 2006 dyslipidemia PVD status post left subclavian stenting - Cardiology consulted, appreciate recommendations -TTE ordered pending -Continue telemetry -Continue strict I's and O's and daily weights -Trend troponin - Cepheid ordered and pending - Continue home amlodipine 5 mg grams daily, aspirin 81 mg daily, Lasix p.o. 20 mg daily, Imdur 15 mg daily, Toprol-XL 75 mg p.o. daily rosuvastatin 20 mg p.o. daily, spironolactone 12.5 p.o. daily Chronic hypoxic respiratory failure secondary to CHF and reported COPD -Continue home montelukast 10 mg p.o. daily, not on home inhalers -Will order as needed DuoNebs every 6 hours for shortness of breath CKD stage III, at baseline Hyperkalemia -Monitor BMP daily, recheck potassium ordere Type II DM -Not on medications, continue with SSI, Accu-Cheks, hypoglycemia precaution Anxiety Chronic pain, chronic opioid use -Continue [place]pex 10 mg every 4 hours, continue Ativan 0.5 nightly and 05 p.o. every 4 hours as needed GERD -Continue home Protonix 40 daily BPH -Continue Flomax 0.4 daily CODE STATUS: DNR/DNI DVT prophylaxis: Heparin Anticipated discharge date: Anticipated discharge place: [facility] A total of 40 minutes was spent on the care of this complex patient more than 50% of the time was spent in counseling and care coordination. 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 Last Myocardial Infarction Date:: 2020 History of Any Multi-Drug Resistant Organisms: None Reported Past Surgical History: Coronary Bypass/CABG, Heart Catheterization, Heart Cathet erization With Stent Additional Past Surgical History / Comment(s): 1991 CABG 3 vessel, 2006 CABG 3 vessel, trachial plasty/laser surgery/resection, penile implant Past Anesthesia/Blood Transfusion Reactions: No Reported Reaction Date of Last Stent Placement:: 2005 Past Psychological History: No Psychological Hx Reported Smoking Status: Former smoker Past Alcohol Use History: None Reported Past Drug Use History: None Reported - Past Family History Father Family Medical History: Coronary Artery Disease (CAD) Brother(s) Family Medical History: Coronary Artery Disease (CAD) Medications and Allergies Home Medications Medication Instructions Recorded Confirmed Type Aspirin 81 mg PO DAILY 07/09/15 02/14/25 History Tamsulosin [Flomax] 0.4 mg PO DAILY 09/18/21 02/14/25 History Montelukast [Singulair] 10 mg PO HS 12/21/21 02/14/25 History Furosemide [Lasix] 20 mg PO DAILY 02/14/25 02/14/25 History HYDROcodone/APAP 10-325MG [[place] 1 tab PO Q4H 02/14/25 02/14/25 History 10-325] Isosorbide Mononitrate ER [Imdur] 15 mg PO DAILY 02/14/25 02/14/25 History LORazepam [Ativan] 0.5 mg PO HS 02/14/25 02/14/25 History LORazepam [Ativan] 0.5 mg PO Q4H PRN 02/14/25 02/14/25 History Metoprolol Succinate (ER) [Toprol 75 mg PO DAILY 02/14/25 02/14/25 History Xl] Pantoprazole [Protonix] 40 mg PO DAILY 02/14/25 02/14/25 History Rosuvastatin [Crestor] 20 mg PO DAILY 02/14/25 02/14/25 History Spironolactone [Aldactone] 12.5 mg PO DAILY 02/14/25 02/14/25 History amLODIPine [Norvasc] 5 mg PO DAILY 02/14/25 02/14/25 History Allergies Allergy/AdvReac Type Severity Reaction Status Date / Time No Known Allergies Allergy Verified 02/14/25 16:06 Physical Exam Vitals: Vital Signs Temp Pulse Resp BP Pulse Ox 02/14/25 15:35 95 18 157/79 99 02/14/25 13:59 97 24 155/77 98 02/14/25 12:51 97.5 F L 102 H 20 152/77 98 Intake and Output 02/14/25 02/14/25 02/14/25 06:59 14:59 22:59 Other: Weight 56.699 kg Results CBC & Chem 7: 02/14/25 14:07 02/14/25 14:07 Labs: Abnormal Lab Results - Last 24 Hours (Table) 02/14/25 02/14/25 02/14/25 Range/Units 14:07 14:07 14:13 MPV 9.3 L (9.5-12.2) fL Immature Gran # 0.06 H (0.00-0.04) 10*3/uL Sodium 135 L (137-145) mmol/L Potassium 5.6 H (3.5-5.1) mmol/L Chloride 96 L (98-107) mmol/L BUN 31 H (9-20) mg/dL Creatinine 1.36 H (0.66-1.25) mg/dL Glucose 135 H (74-99) mg/dL Magnesium 2.5 H (1.6-2.3) mg/dL Total Protein 8.5 H (6.3-8.2) g/dL Urine Protein Trace H (Negative)
[2025-02-14] MEDS: HYDROcodone/APAP 10-325MG 1 EACH TAB PO PRN (17:34)
[2025-02-14 18:16] LABS: Influenza A Not Detected (Not Detectd); Influenza B Not Detected (Not Detectd); RSV Not Detected (Not Detectd)
[2025-02-14] MEDS: HEPARIN SODIUM,PORCINE 5,000 UNIT/ML 1 ML VIAL SQ SCH (19:47)
[2025-02-14] MEDS: MONTELUKAST 10 MG TAB PO SCH (20:08)
[2025-02-14] MEDS: LORazepam 0.5 MG TAB PO SCH (20:08)
[2025-02-14 21:00] LABS: African American GFR (CKD) 60 (>60 ml/min/1.73 sqM); Anion Gap 14 mmol/L; Blood Urea Nitrogen 29 mg/dL (9-20); Calcium 9.3 mg/dL (8.4-10.2); Carbon Dioxide 24 mmol/L (22-30); Chloride 97 mmol/L (98-107); Glucose 151 mg/dL (74-99); Non-African American GFR(CKD) 52 (>60 ml/min/1.73 sqM); Sodium 135 mmol/L (137-145)
[2025-02-14 21:03] LABS: Potassium 4.9 mmol/L (3.5-5.1)
[2025-02-14] MEDS: LORazepam 0.5 MG TAB PO PRN (23:39)
[2025-02-15] MEDS: PANTOPRAZOLE 40 MG TABLET PO SCH (05:43)
[2025-02-15] MEDS ORDERED: ATORVASTATIN 40 MG TAB ONE (09:45)
[2025-02-15] MEDS ORDERED: ISOSORBIDE MONONITRATE ER 15 MG TAB PO ONE (09:45)
[2025-02-15] MEDS ORDERED: METOPROLOL SUCCINATE (ER) 25 MG TAB.ER.24H PO ONE (09:45)
[2025-02-15] MEDS ORDERED: HYDROcodone/APAP 10-325MG 1 EACH TAB ONE (09:45)
[2025-02-15] MEDS ORDERED: ASPIRIN 81 MG ONE (09:45)
[2025-02-15] MEDS ORDERED: TAMSULOSIN 0.4 MG CAP.ER.24H PO ONE (09:45)
[2025-02-15] MEDS ORDERED: amLODIPine 5 MG TAB ONE (09:45)
[2025-02-15 11:16] LABS: BUN/Creat Ratio 19.15 Ratio (12.00-20.00); Blood Urea Nitrogen 24.9 mg/dL (9.0-27.0); Calcium 9.1 mg/dL (8.7-10.3); Carbon Dioxide 22.7 mmol/L (21.6-31.8); Chloride 100 mmol/L (96-109); Glucose 113 mg/dL (70-110); Potassium 4.8 mmol/L (3.5-5.5); Sodium 137 mmol/L (135-145)
[2025-02-15 11:26] VITALS: BMI 21.4
[2025-02-15] MEDS: ISOSORBIDE MONONITRATE ER 15 MG TAB PO SCH (11:39)
[2025-02-15] MEDS: FUROSEMIDE 20 MG TAB PO SCH (11:39)
[2025-02-15] MEDS: METOPROLOL SUCCINATE (ER) 25 MG TAB.ER.24H PO SCH (11:39)
[2025-02-15] MEDS: amLODIPine 5 MG TAB PO SCH (11:39)
[2025-02-15] MEDS: ASPIRIN 81 MG PO SCH (11:39)
[2025-02-15] MEDS: ATORVASTATIN 40 MG TAB PO SCH (11:39)
[2025-02-15] MEDS: TAMSULOSIN 0.4 MG CAP.ER.24H PO SCH (11:40)
[2025-02-15] MEDS: SPIRONOLACTONE 25 MG TAB PO SCH (11:40)
--- NOTE | 2025-02-15 13:44 | P.PN ---
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 He shared that he was seen at multiple outside hospitals over the past couple weeks for CHF exacerbation, aspiration pneumonia, he was always discharged home and had to come back, he also mentioned having intermittent chest pain at rest or with exertion. Patient was under hospice care and now decided to be discharged from it. On arrival afebrile, tachycardic 102, BP 152/77, no documented hypoxia however patient was placed on 3 L nasal cannula, satting 98%. CBC was unremarkable, coagulation panel unremarkable, sodium 135, potassium 5.6, creatinine 1.36, previously at the beginning of January it was 1.4, glucose 135, magnesium 2.5, BNP 485, troponin 0.016 UA negative for UTI. Chest x-ray showed pleural thickening or peripheral infiltrate in the posterior lateral right lung, improved from November. Pulmonary vasculature normal. EKG showed sinus rhythm with LBBB, history of LBBB, QTc 443 Pertinent positives and negatives as discussed in HPI, a complete review of systems was performed and all other systems are negative. Patient will be admitted under observation for evaluation of shortness of breath and chest pain, cardiology consulted, TTE ordered and was consulted as he apparently had recent TTE at another institution, cardiology is obtaining the results. 02/15/2025: Patient seen and examined at bedside, reported significant improvement in his breathing, he is stable on his home oxygen, he also noted increased urine output, no more chest pain reported. Cardiology recommendations pending. Pertinent positives and negatives as discussed above, a complete review of systems was performed and all other systems are negative. Vitals Signs Reviewed. General: [nontoxic], [no distress], [appears at stated age], chronically ill- appearing Derm: [warm], [dry] Head: [atraumatic], [normocephalic], [symmetric] Eyes: [EOMI], [no lid lag], [anicteric sclera] Mouth: [no lip lesion], [mucus membranes moist] Cardiovascular: [S1S2 reg],S3 [ Lungs: [CTA bilateral], [no rhonchi, no rales] , [no accessory muscle use] Abdominal: [soft], [ nontender to palpation], [no guarding], [no appreciable organomegaly] Ext: [no gross muscle atrophy], [no edema], [no contractures] Neuro: [ CN II-XI grossly intact], [no focal neuro deficits] Psych: [Alert], [oriented], [appropriate affect] Assessment and Plan:Shortness of breath Chest pain, intermittent HFrEF CAD status post CABG 1991 and 2006 dyslipidemia PVD status post left subclavian stenting - Cardiology consulted, appreciate recommendations -Continue telemetry -Continue strict I's and O's and daily weights -Trend troponin - Cepheid ordered and pending - Continue home amlodipine 5 mg grams daily, aspirin 81 mg daily, Lasix p.o. 20 mg daily, Imdur 15 mg daily, Toprol-XL 75 mg p.o. daily rosuvastatin 20 mg p.o. daily, spironolactone 12.5 p.o. daily Chronic hypoxic respiratory failure secondary to CHF and reported COPD -Continue home montelukast 10 mg p.o. daily, not on home inhalers -Will order as needed DuoNebs every 6 hours for shortness of breath CKD stage III, at baseline Hyperkalemia -Monitor BMP daily, recheck potassium ordere Type II DM -Not on medications, continue with SSI, Accu-Cheks, hypoglycemia precaution Anxiety Chronic pain, chronic opioid use -Continue [place] 10 mg every 4 hours, continue Ativan 0.5 nightly and 05 p.o. every 4 hours as needed GERD -Continue home Protonix 40 daily BPH -Continue Flomax 0.4 daily CODE STATUS: DNR/DNI DVT prophylaxis: Heparin Anticipated discharge date: 02/[address]: Home Objective - Vital Signs Vital signs: Vital Signs Temp 98.7 F 02/15/25 07:00 Pulse 84 02/15/25 07:00 Resp 16 02/15/25 07:00 BP 129/71 02/15/25 07:00 Pulse Ox 98 02/15/25 07:00 FiO2 Intake & Output 02/14/25 02/15/25 02/15/25 18:59 06:59 18:59 Intake Total 180 Output Total 375 Balance -195 Weight 56.699 kg 56.699 kg Intake: Oral 180 Output: Urine 375 Other: Voiding Method Toilet - Labs CBC & Chem 7: 02/14/25 14:07 02/15/25 07:47 Labs: Abnormal Lab Results - Last 24 Hours (Table) 02/14/25 02/14/25 02/14/25 Range/Units 14:07 14:07 14:13 MPV 9.3 L (9.5-12.2) fL Immature Gran # 0.06 H (0.00-0.04) 10*3/uL Sodium 135 L (137-145) mmol/L Potassium 5.6 H (3.5-5.1) mmol/L Chloride 96 L (98-107) mmol/L Anion Gap (4.00-12.00) mmol/L BUN 31 H (9-20) mg/dL Creatinine 1.36 H (0.66-1.25) mg/dL Est GFR (CKD-EPI) (>=60) Glucose 135 H (74-99) mg/dL Magnesium 2.5 H (1.6-2.3) mg/dL Total Protein 8.5 H (6.3-8.2) g/dL Urine Protein Trace H (Negative) 02/14/25 02/15/25 Range/Units 20:22 07:47 MPV (9.5-12.2) fL Immature Gran # (0.00-0.04) 10*3/uL Sodium 135 L (137-145) mmol/L Potassium (3.5-5.1) mmol/L Chloride 97 L (98-107) mmol/L Anion Gap 14.30 H (4.00-12.00) mmol/L BUN 29 H (9-20) mg/dL Creatinine 1.34 H (0.66-1.25) mg/dL Est GFR (CKD-EPI) 57 L (>=60) Glucose 151 H 113 H (74-99) mg/dL Magnesium (1.6-2.3) mg/dL Total Protein (6.3-8.2) g/dL Urine Protein (Negative)
[2025-02-16] MEDS: DAPAGLIFLOZIN PROPANEDIOL 10 MG TABLET PO SCH (11:03)
--- NOTE | 2025-02-16 11:35 | P.DS ---
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 In the ED he underwent extensive evaluation. BP 152/77, HR 102, T 97.5F, RR 20, 98% on 3L NC. CBC, Coag panel, CMP significant for Na 135, K 5.6, Cl 96, BUN 31, Cr 1.36, glu 135, total protein 8.5. Mag 2.5. Trop 0.016 x 2, < 0.012. UA trace protein. COVID, RSV, Flu neg. Cardiology consulted, recommended obtaining records from [facility] (recent admission) with regard to his Echo. Echo reportedly showed EF 40%. Cardiology had no further recommendations. 02/16 Patient was seen and examined. No chest pain. Wanting to go home. BMP shows AG 14.3, GFR 57, glu 113. Discharge Plan: Plans for discharge home if cleared by Cardiology. Follow up with PCP within 1-2 days and Cardiology within 1 week of discharge. General: non toxic, no distress, appears older than stated age Derm: warm, dry Head: atraumatic, normocephalic, symmetric Mouth: no lip lesion, mucus membranes moist Cardiovascular: S1 S2 reg. No murmur. Lungs: Clear to auscultation bilaterally, no accessory muscle use Ext: no gross muscle atrophy, no edema, no contractures Neuro: No focal neurologic deficits. Psych: Alert and oriented. Discharge Diagnosis: Chest pain with history of CAD w/ stents Dyslipidemia PVD status post left subclavian stenting Chronic hypoxic respiratory failure secondary to COPD and HFrEF Type II DM CKD stage III Chronic opioid use due to chronic pain This complex discharge took 35 minutes to complete. Patient Condition at Discharge: Stable Plan - Discharge Summary New Discharge Prescriptions: Continue Aspirin 81 mg PO DAILY Tamsulosin [Flomax] 0.4 mg PO DAILY Pantoprazole [Protonix] 40 mg PO DAILY amLODIPine [Norvasc] 5 mg PO DAILY Spironolactone [Aldactone] 12.5 mg PO DAILY LORazepam [Ativan] 0.5 mg PO HS Montelukast [Singulair] 10 mg PO HS Rosuvastatin [Crestor] 20 mg PO DAILY Isosorbide Mononitrate ER [Imdur] 15 mg PO DAILY HYDROcodone/APAP 10-325MG [[place] 10-325] 1 tab PO Q4H Metoprolol Succinate (ER) [Toprol XL] 75 mg PO DAILY Furosemide [Lasix] 20 mg PO DAILY LORazepam [Ativan] 0.5 mg PO Q4H PRN PRN Reason: Anxiety Discharge Medication List Aspirin 81 mg PO DAILY 07/09/15 [History] Tamsulosin [Flomax] 0.4 mg PO DAILY 09/18/21 [History] Montelukast [Singulair] 10 mg PO HS 12/21/21 [History] Furosemide [Lasix] 20 mg PO DAILY 02/14/25 [History] HYDROcodone/APAP 10-325MG [[place] 10-325] 1 tab PO Q4H 02/14/25 [History] Isosorbide Mononitrate ER [Imdur] 15 mg PO DAILY 02/14/25 [History] LORazepam [Ativan] 0.5 mg PO HS 02/14/25 [History] LORazepam [Ativan] 0.5 mg PO Q4H PRN 02/14/25 [History] Metoprolol Succinate (ER) [Toprol XL] 75 mg PO DAILY 02/14/25 [History] Pantoprazole [Protonix] 40 mg PO DAILY 02/14/25 [History] Rosuvastatin [Crestor] 20 mg PO DAILY 02/14/25 [History] Spironolactone [Aldactone] 12.5 mg PO DAILY 02/14/25 [History] amLODIPine [Norvasc] 5 mg PO DAILY 02/14/25 [History] Follow up Appointment(s)/Referral(s): Yamini Hester MD [STAFF PHYSICIAN] - 1 Week Gera Solis MD [Primary Care Provider] - 1-2 days Activity/Diet/Wound Care/Special Instructions: Diet: Low salt. Cardiac. Discharge Disposition: HOME SELF-CARE
[2025-02-16 15:04] LABS: African American GFR (CKD) 60 (>60 ml/min/1.73 sqM); Anion Gap 10 mmol/L; Blood Urea Nitrogen 26 mg/dL (9-20); Calcium 9.3 mg/dL (8.4-10.2); Carbon Dioxide 26 mmol/L (22-30); Chloride 99 mmol/L (98-107); Glucose 125 mg/dL (74-99); Magnesium 2.4 mg/dL (1.6-2.3); Non-African American GFR(CKD) 52 (>60 ml/min/1.73 sqM); Sodium 135 mmol/L (137-145)
[2025-02-16] MEDS: amLODIPine 5 MG TAB PO STA (18:52)
[2025-02-17 06:11] VITALS: RESP 17
[2025-02-17 07:07] LABS: Chol/HDL Ratio 3.19 Ratio; LDL Cholesterol,Calculated 73.7 mg/dL (0.0-131.0)
[2025-02-17 07:19] VITALS: BP 136/65; PULSE 71; TEMP 97.6
--- NOTE | 2025-02-17 11:38 | CA ---
Transthoracic Echo Report Name: Ilia Burton Age: 74 Gender: M : 1950 Exam Date: 02/16/2025 13:14 Exam Location: [place] [facility] Ht (in): 64 Wt (lb): 125 Ordering Physician: Rosales Jiménez MD ([id number]) Attending/Referring Phys: Health Physicist Louise Wooten RDCS Procedure CPT: Indications: cardiomyopathy ischemic Cardiac Hx: Hx of CABG Technical Quality: Fair Contrast 1: Definity Total Dose (mL): 2 Contrast 2: Total Dose (mL): MEASUREMENTS (Male / Female) Normal Values 2D ECHO LV Diastolic Volume MOD BP 84.1 cm??? 67 - 155 / 56 - 104 cm??? LV Systolic Volume MOD BP 28.2 cm??? 22 - 58 / 19 - 49 cm??? LV Ejection Fraction MOD BP 66.4 % >= 55 % LV Cardiac Index MOD BP 2581.1 cm???/min???m??? LV Diastolic Volume MOD 4C 74.8 cm??? LV Systolic Volume MOD 4C 23.9 cm??? LV Ejection Fraction MOD 4C 68.0 % LV Cardiac Index MOD 4C 2351.8 cm???/min???m??? LV Diastolic Length 4C 7.0 cm LV Systolic Length 4C 5.6 cm LV Diastolic Volume MOD 2C 91.7 cm??? LV Systolic Volume MOD 2C 39.0 cm??? LV Ejection Fraction MOD 2C 57.5 % LV Cardiac Index MOD 2C 2434.9 cm???/min???m??? LV Diastolic Length 2C 7.9 cm LV Systolic Length 2C 6.8 cm DOPPLER AV Peak Velocity 113.7 cm/s AV Peak Gradient 5.2 mmHg AI Peak Velocity 400.6 cm/s AI Peak Gradient 64.2 mmHg AI Pressure Half Time 350.6 ms TR Peak Velocity 275.8 cm/s TR Peak Gradient 30.4 mmHg Right Ventricular Systolic Press 35.4 mmHg FINDINGS Left Ventricle Left ventricular ejection fraction is estimated at 55-60 %. Mid to basal inferior wall hypokinesia Right Ventricle Mild pulmonary hypertension. Right Atrium Left Atrium Mitral Valve Aortic Valve Trileaflet aortic valve. Aortic valve sclerosis. Moderate aortic regurgitation. Tricuspid Valve Mild tricuspid regurgitation. Pulmonic Valve Pericardium No pericardial effusion. Aorta CONCLUSIONS Limited echo for LVEF LVEF 55% Mid to basal inferior wall hypokinesia Mild pulmonary hypertension Aortic valve sclerosis with moderate aortic regurgitation Previewed by: Dr Rosales Jiménez (Electronically Signed) Final Date: 17 February 2025 11:37
--- NOTE | 2025-02-17 12:01 | P.DS ---
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 In the ED he underwent extensive evaluation. BP 152/77, HR 102, T 97.5F, RR 20, 98% on 3L NC. CBC, Coag panel, CMP significant for Na 135, K 5.6, Cl 96, BUN 31, Cr 1.36, glu 135, total protein 8.5. Mag 2.5. Trop 0.016 x 2, < 0.012. UA trace protein. COVID, RSV, Flu neg. Cardiology consulted, recommended obtaining records from [facility] (recent admission) with regard to his Echo. Echo reportedly showed EF 40%. Cardiology had no further recommendations. 02/16 Patient was seen and examined. No chest pain. Wanting to go home. BMP shows AG 14.3, GFR 57, glu 113. 02/17 Patient was seen and examined. No chest pain. Repeat Echo shows EF 55-60% with mid to basal inferior wall hypokinesis which is similar to his previous Echo. Discharge Plan: Plans for discharge home if cleared by Cardiology. Follow up with PCP within 1-2 days and Cardiology within 1 week of discharge. General: non toxic, no distress, appears older than stated age Derm: warm, dry Head: atraumatic, normocephalic, symmetric Mouth: no lip lesion, mucus membranes moist Cardiovascular: S1 S2 reg. No murmur. Lungs: Clear to auscultation bilaterally, no accessory muscle use Ext: no gross muscle atrophy, no edema, no contractures Neuro: No focal neurologic deficits. Psych: Alert and oriented. Discharge Diagnosis: Chest pain with history of CAD w/ stents Dyslipidemia PVD status post left subclavian stenting Chronic hypoxic respiratory failure secondary to COPD and HFrEF Type II DM CKD stage III Chronic opioid use due to chronic pain This complex discharge took 35 minutes to complete. Patient Condition at Discharge: Stable Plan - Discharge Summary New Discharge Prescriptions: Continue Aspirin 81 mg PO DAILY Tamsulosin [Flomax] 0.4 mg PO DAILY Pantoprazole [Protonix] 40 mg PO DAILY amLODIPine [Norvasc] 5 mg PO DAILY Spironolactone [Aldactone] 12.5 mg PO DAILY LORazepam [Ativan] 0.5 mg PO HS Montelukast [Singulair] 10 mg PO HS Rosuvastatin [Crestor] 20 mg PO DAILY Isosorbide Mononitrate ER [Imdur] 15 mg PO DAILY HYDROcodone/APAP 10-325MG [[place] 10-325] 1 tab PO Q4H Metoprolol Succinate (ER) [Toprol XL] 75 mg PO DAILY Furosemide [Lasix] 20 mg PO DAILY LORazepam [Ativan] 0.5 mg PO Q4H PRN PRN Reason: Anxiety Discharge Medication List Aspirin 81 mg PO DAILY 07/09/15 [History] Tamsulosin [Flomax] 0.4 mg PO DAILY 09/18/21 [History] Montelukast [Singulair] 10 mg PO HS 12/21/21 [History] Furosemide [Lasix] 20 mg PO DAILY 02/14/25 [History] HYDROcodone/APAP 10-325MG [[place] 10-325] 1 tab PO Q4H 02/14/25 [History] Isosorbide Mononitrate ER [Imdur] 15 mg PO DAILY 02/14/25 [History] LORazepam [Ativan] 0.5 mg PO HS 02/14/25 [History] LORazepam [Ativan] 0.5 mg PO Q4H PRN 02/14/25 [History] Metoprolol Succinate (ER) [Toprol XL] 75 mg PO DAILY 02/14/25 [History] Pantoprazole [Protonix] 40 mg PO DAILY 02/14/25 [History] Rosuvastatin [Crestor] 20 mg PO DAILY 02/14/25 [History] Spironolactone [Aldactone] 12.5 mg PO DAILY 02/14/25 [History] amLODIPine [Norvasc] 5 mg PO DAILY 02/14/25 [History] Follow up Appointment(s)/Referral(s): Yamini Hester MD [STAFF PHYSICIAN] - 1 Week Gera Solis MD [Primary Care Provider] - 1-2 days Activity/Diet/Wound Care/Special Instructions: Diet: Low salt. Cardiac. Discharge Disposition: HOME SELF-CARE
--- NOTE | 2025-02-17 12:37 | P.CRDCN ---
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 With past medical history of CAD status post CABG in 1996 and 2006. He also has history of PAD status post left subclavian stenosis, dyslipidemia chronic chronic hypoxic respiratory failure with COPD, prior HFmrEF with ischemic cardiomyopathy with inferior wall hypokinesia. Type 2 diabetes CKD and chronic opioid use with chronic pain. This time he presented to the hospital because of increased dyspnea on exertion with decreased urine output. It appears that this was most likely related to his poor oral intake as he was concerned that if he drinks more water he would get congestive heart failure. On admission he had normal troponin levels, creatinine was 1.63 and he reported having low urine output. His viral panel was negative We obtained an echocardiogram which showed an EF of 45 to 50% with inferior wall hypokinesia which is unchanged from prior examination. Moderate aortic regurgitation His EKG did not show any signs of acute ischemia or concerning for arrhythmias Telemetry did not show any significant pauses or arrhythmias at this time. Chest x-ray and clinical examination did not show signs of significant fluid overload. REVIEW OF SYSTEMS: 14 point review of system is negative except what is mentioned above in HPI. PHYSICAL EXAMINATION: Neck: Brisk carotid upstroke, no jugular venous distention. Lungs: Clear to auscultation. Heart: Regular rate and rhythm, S1-S2, mild systolic murmur Abdomen: Soft nontender, positive bowel sounds. Extremities: No edema, intact distal pulses. Neuro: Alert, oritented, no focal deficits. Detailed neuro exam was not performed. ASSESSMENT: # Decreased urine output and mild worsening ERIKA because of dehydration poor oral intake # Chronic stable CAD with prior history of CABG in 1991 and 2006 with complex PCI to LAD recently at [facility] # History of PAD with left subclavian artery stenting # HFmrEF, with inferior hypokinesia, prior ischemic cardiomyopathy # Moderate aortic regurgitation # Chronic pain with chronic opioid use # CKD PLAN: Aspirin, Lipitor 40, amlodipine 5 mg daily Aldactone 12.5 mg daily, Imdur 15 mg daily, Farxiga 10 mg daily, Metoprolol 75 mg twice daily Monitor urine output and kidney function electrolytes If urine output seems to be appropriate, consider discharging him on this medication regimen. Rosales Jiménez MD, FACC, RPVI Thank you for allowing [facility] to participate in this patient's care. Feel free to reach out in case of any followup questions. 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 Last Myocardial Infarction Date:: 2020 History of Any Multi-Drug Resistant Organisms: None Reported Past Surgical History: Coronary Bypass/CABG, Heart Catheterization, Heart Catheterization With Stent Additional Past Surgical History / Comment(s): 1991 CABG 3 vessel, 2006 CABG 3 vessel, trachial plasty/laser surgery/resection, penile implant Past Anesthesia/Blood Transfusion Reactions: No Reported Reaction Date of Last Stent Placement:: 2005 Past Psychological History: No Psychological Hx Reported Smoking Status: Former smoker Past Alcohol Use History: None Reported Past Drug Use History: None Reported - Past Family History Father Family Medical History: Coronary Artery Disease (CAD) Brother(s) Family Medical History: Coronary Artery Disease (CAD) Medications and Allergies Home Medications Medication Instructions Recorded Confirmed Type Aspirin 81 mg PO DAILY 07/09/15 02/14/25 History Tamsulosin [Flomax] 0.4 mg PO DAILY 09/18/21 02/14/25 History Montelukast [Singulair] 10 mg PO HS 12/21/21 02/14/25 History Furosemide [Lasix] 20 mg PO DAILY 02/14/25 02/14/25 History HYDROcodone/APAP 10-325MG [[place] 1 tab PO Q4H 02/14/25 02/14/25 History 10-325] Isosorbide Mononitrate ER [Imdur] 15 mg PO DAILY 02/14/25 02/14/25 History LORazepam [Ativan] 0.5 mg PO HS 02/14/25 02/14/25 History LORazepam [Ativan] 0.5 mg PO Q4H PRN 02/14/25 02/14/25 History Metoprolol Succinate (ER) [Toprol 75 mg PO DAILY 02/14/25 02/14/25 History XL] Pantoprazole [Protonix] 40 mg PO DAILY 02/14/25 02/14/25 History Rosuvastatin [Crestor] 20 mg PO DAILY 02/14/25 02/14/25 History Spironolactone [Aldactone] 12.5 mg PO DAILY 02/14/25 02/14/25 History amLODIPine [Norvasc] 5 mg PO DAILY 02/14/25 02/14/25 History Allergies Allergy/AdvReac Type Severity Reaction Status Date / Time No Known Allergies Allergy Verified 02/14/25 16:06 Physical Exam Vitals: Vital Signs Temp Pulse Resp BP Pulse Ox 02/17/25 07:00 97.6 F 71 17 136/65 99 02/17/25 02:00 98.2 F 80 17 149/75 100 02/16/25 18:21 97.5 F L 86 14 150/66 99 02/16/25 14:05 97.5 F L 77 16 109/60 99 Intake and Output 02/16/25 02/17/25 02/17/25 22:59 06:59 14:59 Output Total 150 300 275 Balance -150 -300 -275 Output: Urine 150 300 275 Other: Voiding Method Toilet Urinal # Voids 0 Results 02/14/25 14:07 02/16/25 14:32 Lipids 02/16/25 Range/Units 14:32 Triglycerides 136.00 (0.00-149.00) mg/dL Cholesterol 147.00 (0.00-200.00) mg/dL HDL Cholesterol 46.10 (40.00-60.00) mg/dL Cholesterol/HDL Ratio 3.19 Ratio Comprehensive Metabolic Panel 02/16/25 Range/Units 14:32 Sodium 135 L (137-145) mmol/L Potassium 5.0 (3.5-5.1) mmol/L Chloride 99 (98-107) mmol/L Carbon Dioxide 26 (22-30) mmol/L BUN 26 H (9-20) mg/dL Creatinine 1.33 H (0.66-1.25) mg/dL Glucose 125 H (74-99) mg/dL Calcium 9.3 (8.4-10.2) mg/dL Current Medications Generic Name Dose Route Start Last Admin Trade Name Freq PRN Reason Stop Dose Admin Hydrocodone Bitart/Acetaminophen 1 each 02/14/25 16:15 02/17/25 10:04 Hydrocodone/Apap 10-325mg 1 Each Tab PO 1 each Q4HR PRN Administration Pain Amlodipine Besylate 5 mg 02/15/25 09:00 02/17/25 08:27 Amlodipine 5 Mg Tab PO 5 mg DAILY MIRIAM Administration Aspirin 81 mg 02/15/25 09:00 02/17/25 08:27 Aspirin 81 Mg PO 81 mg DAILY MIRIAM Administration Atorvastatin Calcium 40 mg 02/15/25 09:00 02/17/25 08:27 Atorvastatin 40 Mg Tab PO 40 mg DAILY MIRIAM Administration Dapagliflozin 10 mg 02/16/25 10:45 02/17/25 08:27 Dapagliflozin Propanediol 10 Mg Tablet PO 10 mg DAILY MIRIAM Administration Heparin Sodium (Porcine) 5,000 unit 02/14/25 21:00 02/17/25 08:28 Heparin Sodium,Porcine 5,000 Unit/Ml 1 Ml Vial SQ Not Given Q12HR MIRIAM Isosorbide Mononitrate 15 mg 02/15/25 09:00 02/17/25 08:28 Isosorbide Mononitrate Er 15 Mg Tab PO 15 mg DAILY MIRIAM Administration Lorazepam 0.5 mg 02/14/25 21:00 02/16/25 22:06 Lorazepam 0.5 Mg Tab PO 0.5 mg HS MIRIAM Administration Lorazepam 0.5 mg 02/14/25 16:18 02/16/25 03:20 Lorazepam 0.5 Mg Tab PO 0.5 mg Q4H PRN Administration Anxiety Metoprolol Succinate 75 mg 02/15/25 09:00 02/17/25 08:27 Metoprolol Succinate (Er) 25 Mg Tab.Er.24h PO 75 mg DAILY MIRIAM Administration Montelukast Sodium 10 mg 02/14/25 21:00 02/16/25 22:06 Montelukast 10 Mg Tab PO 10 mg HS MIRIAM Administration Naloxone HCl 0.2 mg 02/14/25 15:32 Naloxone 0.4 Mg/Ml 1 Ml Vial IV Q2M PRN Opioid Reversal Pantoprazole Sodium 40 mg 02/15/25 07:30 02/17/25 06:02 Pantoprazole 40 Mg Tablet PO 40 mg [id number] MIRIAM Administration Spironolactone 12.5 mg 02/15/25 09:00 02/17/25 08:27 Spironolactone 25 Mg Tab PO 12.5 mg DAILY MIRIAM Administration Tamsulosin HCl 0.4 mg 02/15/25 09:00 02/17/25 08:27 Tamsulosin 0.4 Mg Cap.Er.24h PO 0.4 mg DAILY MIRIAM Administration Intake and Output 02/16/25 02/17/25 02/17/25 22:59 06:59 14:59 Output Total 150 300 275 Balance -150 -300 -275 Output: Urine 150 300 275 Other: Voiding Method Toilet Urinal # Voids 0 02/14/25 14:07 02/16/25 14:32
--- NOTE | 2025-02-18 05:25 | CONS ---
CONSULTATION HISTORY OF PRESENT ILLNESS: This is a male with a history of CAD with previous CABG and multivessel PCI, chronic kidney disease, ischemic cardiomyopathy, chronic hypoxic respiratory failure on home oxygen, emphysema, and hyperlipidemia. The patient used to follow in the office with Dr. Hester, but has not been seen since May 2022. We have been asked to see the patient in consultation for chest pain. The patient was recently noted to be at [facility] 2 weeks ago. He states that he was there for congestive heart failure and aspiration pneumonia. He states that the reason that he came to the hospital this time is because he was unable to urinate for 2 days and thought he might be dehydrated or in kidney failure. He reports that he feels short of breath this morning, but states that is near his baseline. The patient also has a history of chronic chest pain. He does report mild chest pain this morning, but states it is actually less than his normal pain. EKG and labs were reviewed without evidence of ischemia. The patient did have a recent echocardiogram performed at [facility] revealing ejection fraction 40% with anterior septal and inferior hypokinesis with mild mitral regurgitation and mild tricuspid regurgitation. REVIEW OF SYSTEMS: Negative unless indicated above in HPI. PHYSICAL EXAMINATION: VITAL SIGNS: Have been reviewed. GENERAL: The patient is well developed, in no acute distress. LUNGS: Clear, but diminished at the bases. No crackles, rhonchi, or wheezing noted. HEART: S1 and S2 noted. Regular rhythm. Systolic murmur auscultated. ABDOMEN: Soft, nontender, and nondistended. EXTREMITIES: No clubbing or cyanosis. Peripheral pulses intact. No lower extremity edema noted. NEUROLOGIC: The patient is awake, alert, and oriented x3. ASSESSMENT: 1. Inability to urinate for 2 days per the patient. 2. Chronic chest pain with no evidence of acute ischemia. 3. Chronic kidney disease. 4. Coronary artery disease with previous coronary artery bypass graft and multivessel percutaneous coronary intervention. 5. Ischemic cardiomyopathy. 6. Emphysema. 7. Hyperlipidemia. 8. Chronic hypoxic respiratory failure, on home oxygen. PLAN: 1. No need to repeat echocardiogram as this was recently performed at [facility]. Resume home cardiac medications. 2. There is no evidence of acute coronary syndrome. 3. The patient is stable from a cardiac perspective. PHARMACIST STATEMENT: Nurse practitioner has been reviewed by physician. Signing provider agrees with above documentation which has been documented by nurse practitioner, acting as a scribe. MMODL / IJN: [id number] /
--- NOTE | 2025-02-19 12:21 | CONS ---
CONSULTATION HISTORY OF PRESENT ILLNESS: This is a male with a history of CAD with previous CABG and multivessel PCI, chronic kidney disease, ischemic cardiomyopathy, chronic hypoxic respiratory failure on home oxygen, emphysema, and hyperlipidemia. The patient used to follow in the office with Dr. Hester, but has not been seen since May 2022. We have been asked to see the patient in consultation for chest pain. The patient was recently noted to be at [facility] 2 weeks ago. He states that he was there for congestive heart failure and aspiration pneumonia. He states that the reason that he came to the hospital this time is because he was unable to urinate for 2 days and thought he might be dehydrated or in kidney failure. He reports that he feels short of breath this morning, but states that is near his baseline. The patient also has a history of chronic chest pain. He does report mild chest pain this morning, but states it is actually less than his normal pain. EKG and labs were reviewed without evidence of ischemia. The patient did have a recent echocardiogram performed at [facility] revealing ejection fraction 40% with anterior septal and inferior hypokinesis with mild mitral regurgitation and mild tricuspid regurgitation. REVIEW OF SYSTEMS: Negative unless indicated above in HPI. PHYSICAL EXAMINATION: VITAL SIGNS: Have been reviewed. GENERAL: The patient is well developed, in no acute distress. LUNGS: Clear, but diminished at the bases. No crackles, rhonchi, or wheezing noted. HEART: S1 and S2 noted. Regular rhythm. Systolic murmur auscultated. ABDOMEN: Soft, nontender, and nondistended. EXTREMITIES: No clubbing or cyanosis. Peripheral pulses intact. No lower extremity edema noted. NEUROLOGIC: The patient is awake, alert, and oriented x3. ASSESSMENT: 1. Inability to urinate for 2 days per the patient. 2. Chronic chest pain with no evidence of acute ischemia. 3. Chronic kidney disease. 4. Coronary artery disease with previous coronary artery bypass graft and multivessel percutaneous coronary intervention. 5. Ischemic cardiomyopathy. 6. Emphysema. 7. Hyperlipidemia. 8. Chronic hypoxic respiratory failure, on home oxygen. PLAN: 1. No need to repeat echocardiogram as this was recently performed at [facility]. Resume home cardiac medications. 2. There is no evidence of acute coronary syndrome. 3. The patient is stable from a cardiac perspective. 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 Signing provider agrees with above documentation which has been documented by nurse practitioner, acting as a scribe. MMODL / IJN: [id number] /
--- NOTE | 2025-02-19 13:37 | P.CRDCN ---
History of Present Illness History of present illness: CONSULTATION HISTORY OF PRESENT ILLNESS: This is a male with a history of CAD with previous CABG and multivessel PCI, chronic kidney disease, ischemic cardiomyopathy, chronic hypoxic respiratory failure on home oxygen, emphysema, and hyperlipidemia. The patient used to follow in the office with Dr. Hester, but has not been seen since May 2022. We have been asked to see the patient in consultation for chest pain. The patient was recently noted to be at [facility] 2 weeks ago. He states that he was there for congestive heart failure and aspiration pneumonia. He states that the reason that he came to the hospital this time is because he was unable to urinate for 2 days and thought he might be dehydrated or in kidney failure. He reports that he feels short of breath this morning, but states that is near his baseline. The patient also has a history of chronic chest pain. He does report mild chest pain this morning, but states it is actually less than his normal pain. EKG and labs were reviewed without evidence of ischemia. The patient did have a recent echocardiogram performed at [facility] revealing ejection fraction 40% with anterior septal and inferior hypokinesis with mild mitral regurgitation and mild tricuspid regurgitation. REVIEW OF SYSTEMS: Negative unless indicated above in HPI. PHYSICAL EXAMINATION: VITAL SIGNS: Have been reviewed. GENERAL: The patient is well developed, in no acute distress. LUNGS: Clear, but diminished at the bases. No crackles, rhonchi, or wheezing noted. HEART: S1 and S2 noted. Regular rhythm. Systolic murmur auscultated. ABDOMEN: Soft, nontender, and nondistended. EXTREMITIES: No clubbing or cyanosis. Peripheral pulses intact. No lower extremity edema noted. NEUROLOGIC: The patient is awake, alert, and oriented x3. ASSESSMENT: 1. Inability to urinate for 2 days per the patient. 2. Chronic chest pain with no evidence of acute ischemia. 3. Chronic kidney disease. 4. Coronary artery disease with previous coronary artery bypass graft and multivessel percutaneous coronary intervention. 5. Ischemic cardiomyopathy. 6. Emphysema. 7. Hyperlipidemia. 8. Chronic hypoxic respiratory failure, on home oxygen. PLAN: 1. No need to repeat echocardiogram as this was recently performed at [facility]. Resume home cardiac medications. 2. There is no evidence of acute coronary syndrome. 3. The patient is stable from a cardiac perspective. 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 Signing provider agrees with above documentation which has been documented by nurse practitioner, acting as a scribe. 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 Last Myocardial Infarction Date:: 2020 History of Any Multi-Drug Resistant Organisms: None Reported Past Surgical History: Coronary Bypass/CABG, Heart Catheterization, Heart Catheterization With Stent Additional Past Surgical History / Comment(s): 1991 CABG 3 vessel, 2006 CABG 3 vessel, trachial plasty/laser surgery/resection, penile implant Past Anesthesia/Blood Transfusion Reactions: No Reported Reaction Date of Last Stent Placement:: 2005 Past Psychological History: No Psychological Hx Reported Smoking Status: Former smoker Past Alcohol Use History: None Reported Past Drug Use History: None Reported - Past Family History Father Family Medical History: Coronary Artery Disease (CAD) Brother(s) Family Medical History: Coronary Artery Disease (CAD) Medications and Allergies Home Medications Medication Instructions Recorded Confirmed Type Aspirin 81 mg PO DAILY 07/09/15 02/14/25 History Tamsulosin [Flomax] 0.4 mg PO DAILY 09/18/21 02/14/25 History Montelukast [Singulair] 10 mg PO HS 12/21/21 02/14/25 History Furosemide [Lasix] 20 mg PO DAILY 02/14/25 02/14/25 History HYDROcodone/APAP 10-325MG [[place] 1 tab PO Q4H 02/14/25 02/14/25 History 10-325] Isosorbide Mononitrate ER [Imdur] 15 mg PO DAILY 02/14/25 02/14/25 History LORazepam [Ativan] 0.5 mg PO HS 02/14/25 02/14/25 History LORazepam [Ativan] 0.5 mg PO Q4H PRN 02/14/25 02/14/25 History Metoprolol Succinate (ER) [Toprol 75 mg PO DAILY 02/14/25 02/14/25 History XL] Pantoprazole [Protonix] 40 mg PO DAILY 02/14/25 02/14/25 History Rosuvastatin [Crestor] 20 mg PO DAILY 02/14/25 02/14/25 History Spironolactone [Aldactone] 12.5 mg PO DAILY 02/14/25 02/14/25 History amLODIPine [Norvasc] 5 mg PO DAILY 02/14/25 02/14/25 History Allergies Allergy/AdvReac Type Severity Reaction Status Date / Time No Known Allergies Allergy Verified 02/14/25 16:06 Results 02/14/25 14:07 02/16/25 14:32 02/14/25 14:07 02/16/25 14:32
== END 2025-02-17 14:28 | disposition home or self-care (01) ==
LOC: EC 12:50 → UNDOADMOB 15:33 → 6NMEDSUR 15:33 → INTOOBSV 15:34 → 6NMEDSUR 15:34 → UNDODISIN 02-17 14:28 → UNDODISOB 02-17 14:28
PROVIDERS: ADMIT Student in an Organized Health Care Education/Training Program; ATTEND Student in an Organized Health Care Education/Training Program
DX: R07.9 Chest pain, unspecified (principal); J44.9 Chronic obstructive pulmonary disease, unspecified; J96.11 Chronic respiratory failure with hypoxia; E78.5 Hyperlipidemia, unspecified; I73.9 Peripheral vascular disease, unspecified; E11.22 Type 2 diabetes mellitus with diabetic chronic kidney disease; N18.30 Chronic kidney disease, stage 3 unspecified; N17.9 Acute kidney failure, unspecified; I25.2 Old myocardial infarction; I25.5 Ischemic cardiomyopathy; R39.198 Other difficulties with micturition; I25.10 Atherosclerotic heart disease of native coronary artery without angina pectoris; I50.20 Unspecified systolic (congestive) heart failure; I35.1 Nonrheumatic aortic (valve) insufficiency; G89.29 Other chronic pain; N40.0 Benign prostatic hyperplasia without lower urinary tract symptoms; Z79.899 Other long term (current) drug therapy; Z95.1 Presence of aortocoronary bypass graft; Z95.5 Presence of coronary angioplasty implant and graft; Z79.82 Long term (current) use of aspirin; Z87.891 Personal history of nicotine dependence; Z99.81 Dependence on supplemental oxygen; Z95.828 Presence of other vascular implants and grafts; Z79.891 Long term (current) use of opiate analgesic
CPT/HCPCS: 99285; 51798; 36415; 93005; 93308; 83880; 80061; 80053; 80048 ×3; 84443; 83735 ×2; 84484 ×2; 85025; 85610; 85730; 81003; 83036; 87636; 71046; G0378 ×4; Q9957